=== PATIENT | male | born 1960 | race African-American/Black ===

== ENCOUNTER 2017-01-21 14:06 | Emergency (ER) | payer BC, MEDICAID ==
[~2017-01-21] VITALS: Ht 177.8 cm; Wt 68.0 kg
[~2017-01-21 14:06] MED LIST: ACYCLOVIR400 MG PO; CLONIDINE 0.2M0.2 MG ORAL; CLONIDINE 0.2M0.2 MG PO; DOXYCYCLINE MO100 MG ORAL; GENTAK5 ML BOTH EYES; METOPROLOL; NEXIUM40 MG ORAL; OXYCODONE HCL15 M1 ORAL; PHENERGAN6.25 MG/5 ORAL; PROCARDIA XL30 MG ORAL; PROMETHAZINE V237 ML ORAL; PROMETHAZINE-C118 M1 ORAL; RENAGEL400 MG ORAL; ROXICODONE15 MG ORAL; SENSIPAR30 MG ORAL
[2017-01-21] MEDS ORDERED: DuoNeb 0.5-3(2.5)mg/3ml neb HHN ONE (14:45)
[2017-01-21] MEDS ORDERED: guaiFENesin w/Codeine 5ml Liq ud ORAL ONE (14:45)
--- NOTE | 2017-01-21 14:47 | Emergency Room Report ---
History of Present Illness General Chief Complaint: Upper Respiratory Illness Source: Patient Present Illness HPI Patient is a 56-year-old male who presented after having increased cough and difficulty breathing. Patient had dialysis earlier in the day. Reported having nonproductive cough with intermittent mucus production. He reports being on dialysis and states he was dialyzed earlier. He had previously taken azithromycin and with an initial resolution of cough which recurred. Allergies: Coded Allergies: No Known Allergies (Unverified , 07/24/12) Patient History Past Medical History: see triage record Reviewed Nursing Documentation: PMH: Agreed, PSxH: Agreed Nursing Documentation-PMH Past Medical History: No History, Except For Hx Cardiac Problems: No Hx Hypertension: Yes Hx Diabetes: Yes Hx Cancer: No Hx Gastrointestinal Problems: No Hx Dialysis: Yes - MWF, AV shunt on LUE Hx Neurological Problems: No Review of Systems All Other Systems: negative except mentioned in HPI Physical Exam Vital Signs Date Time Temp Pulse Resp B/P Pulse Ox O2 Delivery O2 Flow Rate FiO2 01/21/17 14:30 98.8 89 16 149/81 98 Room Air Sp02 EP Interpretation: reviewed, normal General Appearance: normal inspection, alert, GCS 15 Head: atraumatic ENT: normal ENT inspection, hearing grossly normal, normal voice Neck: normal inspection, full range of motion, supple, no bony tend Respiratory: normal inspection, lungs clear, normal breath sounds, no respiratory distress, no retraction, no wheezing Cardiovascular #1: regular rate, rhythm, no edema Gastrointestinal: normal inspection, normal bowel sounds, non tender, soft, no guarding, no hernia Genitourinary: no CVA tenderness Musculoskeletal: normal inspection, back normal, normal range of motion Neurologic: normal inspection, alert, oriented x3, responsive, repairer general III-XII nml as tested, speech normal Psychiatric: normal inspection, judgement/insight normal, mood/affect normal Skin: normal inspection, normal color, no rash Medical Decision Making Diagnostic Impression: Primary Impression: Bronchitis Additional Impression: ESRD (end stage renal disease) ER Course Patient presented for cough. Differential diagnosis included but was not limited to bronchitis, pneumonia, pulmonary embolism, pericarditis, asthma, foreign body. Chest x-ray was ordered due to the patient's a persistent cough. The patient was given breathing treatment as well as cough syrup.The patient was noted to have intermittent paroxysms of cough. The patient was given prescription for cough syrup. CURES report was reviewed and patient was noted be taking narcotic medications. Patient is advised to only take the cough syrup for sleep. The patient presented to prescribe similar type syrup. Patient advised followup with his primary care physician. The patient did not appear to require laboratory testing or hospitalization this time. Last Vital Signs Date Time Temp Pulse Resp B/P Pulse Ox O2 Delivery O2 Flow Rate FiO2 01/21/17 14:30 98.8 89 16 149/81 98 Room Air Status: improved Disposition: HOME, SELF-CARE Condition: Stable Scripts Guaifenesin/Codeine (Guaifenesin-Codeine Syrup) 5 Ml Liquid 5 ML ORAL Q6H Y for For Cough, #118 ML Prov: Chris Jarquin 01/21/17 Chris Jarquin Jan 21, 2017 14:47
[2017-01-21 14:58] VITALS: BP 139/78
--- NOTE | 2017-01-21 15:30 | Diagnostic Imaging Report ---
Indication: SOB,, Technique: One view of the chest Comparison: 10/27/2015 Findings: The heart is enlarged. There is mild interstitial prominence, appearing similar to the prior study. Left arm surgical clips are again noted. No focal airspace consolidation. No effusion. Impression: Cardiomegaly Mild interstitial prominence. Probably representing mild digital congestion. However, similarity to the prior exam raises possibility that this could in part represent chronic change
[2017-01-21] MEDS ORDERED: ROBITUSSIN AC5 ML ORAL (15:36)
[2017-01-21 15:38] VITALS: BP 138/82
== END 2017-01-21 15:56 | disposition home or self-care (01) ==
LOC: EMR 15:18
DX: J20.9 Acute bronchitis, unspecified (principal); N18.6 End stage renal disease; Z99.2 Dependence on renal dialysis; I10 Essential (primary) hypertension; E11.9 Type 2 diabetes mellitus without complications
CPT/HCPCS: 71010; 94640; 99283

== ENCOUNTER 2017-08-22 12:50 | Emergency (ER) | payer BC, MEDICAID ==
[~2017-08-22] VITALS: Ht 177.8 cm; Wt 68.0 kg
[~2017-08-22 12:50] MED LIST changes: +ROBITUSSIN AC5 ML ORAL
[2017-08-22 13:15] VITALS: BP 136/88
--- NOTE | 2017-08-22 13:19 | Emergency Room Report ---
History of Present Illness General Chief Complaint: Upper Extremity Injury Source: Patient (BAYRON DUEÑAS) Present Illness HPI The patient is a 56-year-old male presenting for left hand pain. He states that he struck the left hand against a metal object 3 days ago and noticed swelling and pain after that point. Pain has continued it is a 10 out of 10 dull ache it is worse with touch and movement. He denies numbness or tingling. He denies previous injury to the hand.The patient has renal failure and is on dialysis and states swelling did decrease a little after the treatment today. He denies other symptoms including N, V, F, chills, rash (BAYRON DUEÑAS) Allergies: Coded Allergies: No Known Allergies (Unverified , 07/24/12) Patient History Past Medical History: see triage record Pertinent Family History: none Reviewed Nursing Documentation: PMH: Agreed, PSxH: Agreed (BAYRON DUEÑAS) Nursing Documentation-PMH Hx Cardiac Problems: No Hx Hypertension: Yes Hx Diabetes: Yes Hx Cancer: No Hx Gastrointestinal Problems: No Hx Dialysis: Yes - M-W-F Hx Neurological Problems: No (BAYRON [email or web address].[email or web address]) Review of Systems All Other Systems: negative except mentioned in HPI (BAYRON DUEÑAS) Physical Exam Vital Signs Date Time Temp Pulse Resp B/P (MAP) Pulse Ox O2 Delivery O2 Flow Rate FiO2 08/22/17 13:09 98.1 87 16 136/88 98 Room Air Sp02 EP Interpretation: reviewed, normal General Appearance: no apparent distress, alert, GCS 15, non-toxic Head: normocephalic, atraumatic Eyes: bilateral eye normal inspection, bilateral eye PERRL ENT: hearing grossly normal, normal pharynx, no angioedema, normal voice Neck: full range of motion, supple/symm/no masses Musculoskeletal: decreased range of motion - L 2nd MCPJ, tender - TTP over the L 2nd MC Neurologic: alert, oriented x3, responsive, motor strength/tone normal, sensory intact, speech normal Psychiatric: judgement/insight normal, memory normal, mood/affect normal, no suicidal/homicidal ideation Skin: normal color, no rash, warm/dry, well hydrated (BAYRON DUEÑAS) Procedures Splinting Splinting : Consent: Verbal Location: L hand Pre-Made Type: Hand-Made Type: plaster Splint: radial gutter Pre-Proc Neuro Vasc Exam: normal Post-Proc Neuro Vasc Exam: normal Patient Tolerated: Well Complications: None (BAYRON DUEÑAS) Medical Decision Making PA Attestation Dr. Valera is my supervising physician. Patient management was discussed with my supervising physician (BAYRON DUEÑAS) Diagnostic Impression: Primary Impression: Metacarpal bone fracture Qualified Codes: S62.301A - Unspecified fracture of second metacarpal bone, left hand, initial encounter for closed fracture ER Course The patient is a 56-year-old male presenting for left hand pain. Ddx considered include but not limited to sprain/strain, fracture, contusion Physical exam: Left hand: There is edema to the L lateral hand with TTP over the 2nd MC. Limited AROM with flection of the 2nd MCPJ X-ray of the left hand reveals a fracture of the second metacarpal Radial gutter splint is placed and the patient will follow up with his primary doctor DEE. He'll need referral for orthopedics. ER precautions given (BAYRON DUEÑAS) ER Course I agree with XR result intepretation by PA Electronically signed by Lawrence Valera md (Lawrence Valera M.D.) Other X-Ray Diagnostic Results Other X-Ray Diagnostic Results : X-Ray ordered: L hand # of Views/Limited Vs Complete: 3 View Indication: Pain EP Interpretation: Yes Interpretation: no dislocation, other - fracture Impression: Other - fracture 2nd MC Electronically Signed by: Bayron Dueñas PA-C PA Scribe Text I have reviewed the xray with my supervising physician and interpretation is that there is a fracture of the 2nd MC (BAYRON DUEÑAS) Last Vital Signs Date Time Temp Pulse Resp B/P (MAP) Pulse Ox O2 Delivery O2 Flow Rate FiO2 08/22/17 13:09 98.1 87 16 136/88 98 Room Air Status: improved (BAYRON DUEÑASADeb) Disposition: HOME, SELF-CARE Condition: Improved Scripts Hydrocodone Bit/Acetaminophen 5-325* (NORCO 5-325 TABLET*) 1 Each Tablet 1 TAB ORAL Q6HR Y for For Pain, #10 TAB Prov: BAYRON DUEÑAS 08/22/17 BAYRON DUEÑAS Aug 22, 2017 13:19 Lawrence Valera M.D. Aug 23, 2017 12:32
[2017-08-22] MEDS ORDERED: Norco 5mg/325mg tab ORAL ONE (14:00)
[2017-08-22] MEDS ORDERED: NORCO 5-325 TA1 EAC1 ORAL (14:26)
[2017-08-22 14:33] VITALS: BP 136/88
--- NOTE | 2017-08-22 14:48 | Diagnostic Imaging Report ---
Indication: PAIN, swelling, unable to move fingers Technique: 3 views left hand Comparison: None Findings: There is a comminuted fracture of the distal aspect of the second metacarpal. This is minimally displaced, slightly angulated. No other acute fracture. No dislocations. Surgical clips are seen in the distal lateral forearm. Impression: Positive for second metacarpal fracture Findings discussed by phone with Bayron Monte N.P. in the emergency room at the time of interpretation
== END 2017-08-22 15:00 | disposition home or self-care (01) ==
LOC: EMR 14:20
DX: S62.391A Other fracture of second metacarpal bone, left hand, initial encounter for closed fracture (principal); W22.8XXA Striking against or struck by other objects, initial encounter; Y92.015 Private garage of single-family (private) house as the place of occurrence of the external cause; I10 Essential (primary) hypertension; E11.9 Type 2 diabetes mellitus without complications
CPT/HCPCS: 99283

== ENCOUNTER 2017-12-19 08:00 | Emergency (ER) | payer BC, MEDICAID ==
[~2017-12-19] VITALS: Ht 177.8 cm; Wt 68.0 kg
[~2017-12-19 08:00] MED LIST changes: +NORCO 5-325 TA1 EAC1 ORAL
[2017-12-19] MEDS ORDERED: Lidocaine 1% MPF 10mg/ml 5ml INJ ONE (08:15)
[2017-12-19] MEDS ORDERED: Azithromycin 250mg tab ORAL ONE (08:15)
--- NOTE | 2017-12-19 08:24 | Emergency Room Report ---
History of Present Illness General Chief Complaint: Male Urogenital Problems Source: Patient Present Illness HPI 56-year-old male, history of end-stage renal disease, on dialysis, last dialysis was today, presenting with possible STD exposure. Patient states that he had sexual intercourse with a stranger one week and, now presenting with slight penile burning and slight penile discharge. States that he does not produce any urine any more. No fever no chills. No other complaints Allergies: Coded Allergies: No Known Allergies (Unverified , 07/24/12) Patient History Past Medical History: see triage record Past Surgical History: none Pertinent Family History: none Reviewed Nursing Documentation: PMH: Agreed, PSxH: Agreed Nursing Documentation-PMH Past Medical History: No History, Except For Hx Cardiac Problems: No Hx Hypertension: Yes Hx Diabetes: Yes Hx Cancer: No Hx Gastrointestinal Problems: No Hx Dialysis: Yes - M-W-F Hx Neurological Problems: No Review of Systems All Other Systems: negative except mentioned in HPI Physical Exam Vital Signs Date Time Temp Pulse Resp B/P (MAP) Pulse Ox O2 Delivery O2 Flow Rate FiO2 12/19/17 08:03 97.6 74 18 133/88 98 Room Air 97.5 Sp02 EP Interpretation: reviewed, normal General Appearance: normal inspection, well appearing, no apparent distress, alert, GCS 15, non-toxic Head: normocephalic, atraumatic Eyes: bilateral eye normal inspection, bilateral eye PERRL, bilateral eye EOMI ENT: normal ENT inspection, normal pharynx, normal voice, moist mucus membranes Neck: normal inspection, full range of motion, supple Respiratory: normal inspection, lungs clear, normal breath sounds, no respiratory distress, no retraction, no wheezing, speaking full sentences, chest symmetrical Cardiovascular #1: normal inspection, regular rate, rhythm, no edema, normal capillary refill Cardiovascular #2: 2+ radial (R), 2+ radial (L) Gastrointestinal: normal inspection, non tender, soft, non-distended, no guarding Genitourinary: no CVA tenderness Musculoskeletal: normal inspection, back normal, normal range of motion, non- tender Neurologic: normal inspection, alert, oriented x3, responsive, motor strength/ tone normal, sensory intact, normal gait, speech normal Psychiatric: normal inspection, judgement/insight normal, memory normal Skin: normal inspection, normal color, no rash, warm/dry, well hydrated, normal turgor Medical Decision Making Diagnostic Impression: Primary Impression: Possible exposure to STD ER Course 56-year-old male, possible STD exposure DDX: Possible STD exposure Plan: Empirically treated for STD ER course: Patient has remained stable during ED stay. Patient was treated with ceftriaxone and azithromycin. He was informed to not have sex for at least 2 weeks after treatment. Also noted that he still needs to get tested for other infection such as HIV at an outside clinic, states that he can get tested at his primary care doctor's office Disposition: Patient is to be discharged to home. Patient is instructed to follow up with their primary care doctor within 5 days. Please note that this Emergency Department Report was dictated using [employer] transformer assembler technology software, occasionally this can lead to erroneous entry secondary to interpretation by the dictation equipment Last Vital Signs Date Time Temp Pulse Resp B/P (MAP) Pulse Ox O2 Delivery O2 Flow Rate FiO2 12/19/17 08:03 97.6 74 18 133/88 98 Room Air 97.5 Disposition: HOME, SELF-CARE Condition: Stable Referrals: NOT CHOSEN IPA/,REFERRING (PCP) Patient Instructions: Sexually Transmitted Disease, [id number] Lawrence Valera M.D. Dec 19, 2017 08:24
[2017-12-19 08:30] VITALS: BP 129/87
[2017-12-19 08:48] VITALS: BP 129/87
== END 2017-12-19 09:12 | disposition home or self-care (01) ==
LOC: EMR 08:16
DX: R36.9 Urethral discharge, unspecified (principal); I12.0 Hypertensive chronic kidney disease with stage 5 chronic kidney disease or end stage renal disease; E11.22 Type 2 diabetes mellitus with diabetic chronic kidney disease; N18.6 End stage renal disease; Z99.2 Dependence on renal dialysis
CPT/HCPCS: 96372; 99283; J0696

== ENCOUNTER 2018-07-24 08:03 | Emergency (ER) | payer BC, MEDICAID ==
[~2018-07-24] VITALS: Ht 177.8 cm; Wt 68.0 kg
[2018-07-24] MEDS ORDERED: DOXYCYCLINE MO100 MG ORAL (08:24)
--- NOTE | 2018-07-24 08:29 | Emergency Room Report ---
History of Present Illness General Chief Complaint: Male Urogenital Problems Source: Patient Present Illness HPI Patient's 57-year-old male brought in by self after increased patient was noted to have increased burning sensation as well as increased urethral discharge. Patient reports having increased symptoms after unprotected sex. He denies any fever. He reports having history of end-stage renal disease and was dialyzed this morning. The patient dialyzed Tuesday and Tuesday. He additionally reports having increased nasal bleeding predominantly from the left nare. He denies any fever. He reports having a previous renal transplant and but is not currently on any immunosuppressive medications. Allergies: Coded Allergies: No Known Allergies (Unverified , 07/24/18) Patient History Reviewed Nursing Documentation: PMH: Agreed; PSxH: Agreed Nursing Documentation-PMH Hx Cardiac Problems: No Hx Hypertension: Yes Hx Diabetes: No Hx Cancer: No Hx Gastrointestinal Problems: No Hx Dialysis: Yes - M-W-F Hx Neurological Problems: No Review of Systems All Other Systems: negative except mentioned in HPI Physical Exam Vital Signs Date Time Temp Pulse Resp B/P (MAP) Pulse Ox O2 Delivery O2 Flow Rate FiO2 07/24/18 08:07 97.9 102 16 177/101 94 Room Air 94 97.9 Sp02 EP Interpretation: reviewed, normal General Appearance: normal inspection, well appearing, no apparent distress, alert, GCS 15 Head: atraumatic ENT: hearing grossly normal, normal voice, other - right nare anterior septal scant bleeding Neck: normal inspection, full range of motion, supple, no bony tend Respiratory: normal inspection, lungs clear, normal breath sounds, no respiratory distress, no retraction, no wheezing Cardiovascular #1: regular rate, rhythm, no edema Gastrointestinal: normal inspection, normal bowel sounds, non tender, soft, no guarding, no hernia Genitourinary: no CVA tenderness Musculoskeletal: normal inspection, back normal, normal range of motion, other - left forearm dialysis shunt with palpable thrill Neurologic: normal inspection, alert, responsive, speech normal Psychiatric: normal inspection, judgement/insight normal, mood/affect normal Skin: normal inspection, normal color, no rash Medical Decision Making Diagnostic Impression: Primary Impression: Urethritis Additional Impressions: Anterior epistaxis ESRD (end stage renal disease) on dialysis ER Course Patient presented for urethral discharge. The patient noted be anuric. The patient was empirically treated for gonorrhea and chlamydia. Patient was advised STD testing outpatient. The patient is advised to follow up with primary care doctor in 1-2 days for further STD testing. The patient was noted to have some mild epistaxis. Intranasal tranexamic acid was placed in both nares with resolution of bleeding. The patient does not appear to require any laboratory testing at this time. Patient had not been bleeding from his dialysis access or having any gingival bleeding or other concerns at this time. Patient is advised to return if any worsening condition or if any changes in status that are concerning. Last Vital Signs Date Time Temp Pulse Resp B/P (MAP) Pulse Ox O2 Delivery O2 Flow Rate FiO2 07/24/18 08:07 97.9 102 16 177/101 94 Room Air 94 97.9 Status: improved Disposition: HOME, SELF-CARE Condition: Stable Scripts Doxycycline Monohydrate* (DOXYCYCLINE MONOHYDRATE*) 100 Mg Capsule 100 MG ORAL Q12H, #14 CAP 0 Refills Prov: Chris Jarquin MD 07/24/18 Referrals: NON PHYSICIAN (PCP) Patient Instructions: Urethritis, Adult Chris Jarquin MD Jul 24, 2018 08:29
[2018-07-24] MEDS ORDERED: Lidocaine 1% MPF 10mg/ml 5ml INJ ONE (08:30)
[2018-07-24] MEDS ORDERED: Tranexamic Acid(Epistaxis Use) TOPIC ONE (08:30)
[2018-07-24 08:45] VITALS: BP 169/96
[2018-07-24 08:49] VITALS: BP 169/96
== END 2018-07-24 08:50 | disposition home or self-care (01) ==
LOC: EMR 08:20
DX: N34.2 Other urethritis (principal); R04.0 Epistaxis; I12.0 Hypertensive chronic kidney disease with stage 5 chronic kidney disease or end stage renal disease; N18.6 End stage renal disease; Z99.2 Dependence on renal dialysis
CPT/HCPCS: 96372; 99283; J0696

== ENCOUNTER 2019-04-27 10:46 | Emergency (ER) | payer BC, OTHER ==
[~2019-04-27] VITALS: Ht 175.3 cm; Wt 70.3 kg
[2019-04-27 11:15] VITALS: BP 110/81
--- NOTE | 2019-04-27 11:29 | NUR ---
ED Nurse Note: Patient presents to ER due to penile burning with clear discharge. Reports no fever or chills.
[2019-04-27] MEDS ORDERED: Lidocaine 1% MPF 10mg/ml 5ml INJ ONE (11:30)
[2019-04-27] MEDS ORDERED: Azithromycin 250mg tab ORAL ONE (11:30)
[2019-04-27] MEDS ORDERED: metroNIDAZOLE 500mg tab ORAL ONE (11:30)
[2019-04-27 11:53] VITALS: BP 110/81
--- NOTE | 2019-04-27 11:53 | NUR ---
ER DISCHARGE NOTE: Patient is cleared to be discharged per ERMD, pt is aox4, on room air, with stable vital signs. pt was given dc and prescription instructions, pt was able to verbalize understanding, pt id band removed. pt is able to ambulate with steady gait. pt took all belongings.
--- NOTE | 2019-04-27 12:40 | Emergency Room Report ---
History of Present Illness General Chief Complaint: Male Urogenital Problems Source: Patient, Medical Record Present Illness HPI Patient presents emergency department today complaining of dysuria and urethral discharge. He states that he has a sexual encounter and subsequently his condom broke. Because of that he thinks he might have now an STD. He denies any testicle pain or testicular swelling. Denies any nodules in the groin. Denies any fever nausea vomiting diarrhea chills. He is requesting treatment. No other complaints are noted patient noted to moderate to severe. No other modifying factors. No other associated signs and symptoms. No other complaints were noted. Allergies: Coded Allergies: No Known Allergies (Unverified , 07/24/18) Patient History Past Medical History: HTN, renal disease, dialysis - mwf Past Surgical History: none Pertinent Family History: none Social History: Denies: smoking, alcohol use, drug use Reviewed Nursing Documentation: PMH: Agreed; PSxH: Agreed Nursing Documentation-PMH Past Medical History: No History, Except For Hx Cardiac Problems: No Hx Hypertension: Yes Hx Diabetes: No Hx Cancer: No Hx Gastrointestinal Problems: No Hx Dialysis: Yes - M-W-F Hx Neurological Problems: No Review of Systems All Other Systems: negative except mentioned in HPI Physical Exam Vital Signs Date Time Temp Pulse Resp B/P (MAP) Pulse Ox O2 Delivery O2 Flow Rate FiO2 04/27/19 11:15 98.2 16 110/81 95 Room Air 04/27/19 11:15 80 Sp02 EP Interpretation: reviewed, normal General Appearance: normal inspection, well appearing, no apparent distress, alert Head: atraumatic Eyes: bilateral eye normal inspection ENT: normal ENT inspection, hearing grossly normal, normal voice Neck: normal inspection, full range of motion, supple, no bony tend Respiratory: normal inspection, lungs clear, normal breath sounds, no respiratory distress, no retraction, no wheezing Cardiovascular #1: regular rate, rhythm, no edema Gastrointestinal: normal inspection, normal bowel sounds, non tender, soft, no guarding, no hernia Genitourinary: no CVA tenderness Musculoskeletal: normal inspection, back normal, normal range of motion Neurologic: normal inspection, alert, responsive, speech normal Psychiatric: normal inspection, judgement/insight normal, mood/affect normal Skin: normal inspection, normal color, no rash Medical Decision Making Diagnostic Impression: Primary Impression: Urethritis Additional Impression: STD (male) ER Course Patient presents emergency department today complaint dysuria and penile discharge. Differential considerations include STD, UTI. Patient states he does not usually make urine. Therefore for the patient's symptoms are consistent with likely a STD urethritis. Patient will require antibiotics. Patient was given Rocephin and Flagyl and Zithromax here. Patient is advised to follow up with primary doctor in 2-3 days and return the emergency room for any worsening symptoms and as needed. Last Vital Signs Date Time Temp Pulse Resp B/P (MAP) Pulse Ox O2 Delivery O2 Flow Rate FiO2 04/27/19 11:15 98.2 80 16 110/81 (91) 95 Room Air Status: improved Disposition: HOME, SELF-CARE Condition: Stable Referrals: NON PHYSICIAN (PCP) Patient Instructions: Urethritis, Adult Sixto Smith MD Apr 27, 2019 12:40
== END 2019-04-27 11:53 | disposition home or self-care (01) ==
LOC: EMR 11:25
DX: N34.2 Other urethritis (principal); I12.9 Hypertensive chronic kidney disease with stage 1 through stage 4 chronic kidney disease, or unspecified chronic kidney disease; N18.9 Chronic kidney disease, unspecified; Z99.2 Dependence on renal dialysis; Z20.2 Contact with and (suspected) exposure to infections with a predominantly sexual mode of transmission
CPT/HCPCS: 96372; 99283; J0696

== ENCOUNTER 2020-02-08 18:50 | Emergency (ER) | payer BC, OTHER ==
[~2020-02-08] VITALS: Ht 170.2 cm; Wt 81.6 kg
[2020-02-08 19:20] VITALS: BP 176/87
--- NOTE | 2020-02-08 19:20 | NUR ---
ED Nurse Note: Patient walked into ED c/o left sided rib pain with onset for about 5 hours now, states that it initially started while patient was receiving dialysis at around 1400. patient does present with a dialysis catheter located on his left upper arm. patient also complains of burning and itching in the penile area, assessment done with ERMD. patient does present with a bump located towards the back of the penile head. patient is alert and oriented x4, patient placed on a portable machine. IV started on right hand 20 gauge. will continue to monitor
[2020-02-08] MEDS ORDERED: Lidocaine 1% MPF 10mg/ml 5ml INJ ONE (19:45)
[2020-02-08] MEDS ORDERED: Bicillin LA 2.4MMU/4ML SYR IM ONE (19:45)
[2020-02-08] MEDS ORDERED: Azithromycin 250mg tab ORAL ONE (19:45)
--- NOTE | 2020-02-08 19:53 | Emergency Room Report ---
History of Present Illness General Chief Complaint: Chest Pain Source: Patient Present Illness HPI Disclaimer: Please note that this report is being documented using DRAGON technology. This can lead to erroneous entry secondary to incorrect interpretation by the dictating instrument. HPI: 59-year-old male with history of ESRD on hemodialysis presents for evaluation of chest pain and penile discharge. First, he states that he was undergoing hemodialysis today as scheduled and complaining of sharp stabbing left-sided chest wall pain that is worse with movement. He was relieved by stretching exercise and by massaging the muscle. He has had this pain multiple times in the past when receiving dialysis. He does not know what it is attributed to. He is currently not complaining of the pain. Denies shortness of breath, back pain, palpitations, syncope. Second, he is complaining of burning sensation in the penis as well as a small ulcer. He has had STIs in the past. He recently had a sexual encounter and the condom broke and is concerned he has another STD. Patient is an uric. Notes itching and burning in the groin region. Denies fever, chills, cough, URI symptoms, recent travel or sick contacts. PMH: ESRD on hemodialysis PSH: Dialysis graft left upper arm Allergies: None reported Social Hx: Denies drug or alcohol abuse Allergies: Coded Allergies: No Known Allergies (Unverified , 07/24/18) COVID-19 Screening Contact w/high risk pt: No Recent Travel to affected area: No Experienced COVID-19 symptoms?: No Nursing Documentation-PMH Past Medical History: No History, Except For Hx Cardiac Problems: No Hx Hypertension: Yes Hx Diabetes: No Hx Cancer: No Hx Gastrointestinal Problems: No Hx Dialysis: Yes - M-W-F Hx Neurological Problems: No Review of Systems All Other Systems: negative except mentioned in HPI Physical Exam Vital Signs Date Time Temp Pulse Resp B/P (MAP) Pulse Ox O2 Delivery O2 Flow Rate FiO2 02/08/20 19:17 98.4 110 18 176/87 (116) 94 Room Air General: Awake and alert, no acute distress HEENT: NC/AT. EOMI. Neck: Supple, trachea midline Chest Wall: No tenderness, no deformity. No crepitus. Cardiovascular: Tachycardic. S1 and S2 normal. Fistula with palpable thrill left upper arm Resp: Normal work of breathing. No cough, wheezing or crackles appreciated Abdomen: Abdomen is soft, nondistended. Nontender : No penile discharge, circumcised male, testes in anatomic position. Shallow ulcer without surrounding edema, erythema, purulence over the glans. Skin: Intact. No abrasions, laceration or rash over the exposed skin MSK: Normal tone and bulk. Moving all extremities. No obvious deformity. Neuro: Awake and alert. Mentating appropriately. Medical Decision Making Diagnostic Impression: Primary Impression: Possible exposure to STD Additional Impressions: Urethritis Chest pain Pneumonia ER Course 59-year-old male with a history of ESRD and prior STI exposure presents for evaluation of chest pain during hemodialysis and concern over STD exposure. Differential includes was not limited to ACS, electrolyte abnormality, volume shifts, musculoskeletal chest wall pain, atypical chest pain, urethritis, syphilis, HSV. Patient's chest pain appears to be musculoskeletal however given his multiple risk factors will obtain EKG, chest x-ray, broad labs. Regarding his penile discomfort and discharge, will treat him with Zithromax, Rocephin, penicillin. We will also refer him to STD clinics for testing. Laboratory Tests Test 02/08/20 19:40 White Blood Count 6.8 K/UL (4.8-10.8) Red Blood Count 3.70 M/UL (4.70-6.10) L Hemoglobin 11.2 G/DL (14.2-18.0) L Hematocrit 34.1 % (42.0-52.0) L Mean Corpuscular Volume 92 FL (80-99) Mean Corpuscular Hemoglobin 30.2 PG (27.0-31.0) Mean Corpuscular Hemoglobin Concent 32.8 G/DL (32.0-36.0) Red Cell Distribution Width 16.6 % (11.6-14.8) H Platelet Count 305 K/UL (150-450) Mean Platelet Volume 5.8 FL (6.5-10.1) L Neutrophils (%) (Auto) 67.4 % (45.0-75.0) Lymphocytes (%) (Auto) 19.6 % (20.0-45.0) L Monocytes (%) (Auto) 7.1 % (1.0-10.0) Eosinophils (%) (Auto) 3.7 % (0.0-3.0) H Basophils (%) (Auto) 2.2 % (0.0-2.0) H Sodium Level 140 MMOL/L (136-145) Potassium Level 3.9 MMOL/L (3.5-5.1) Chloride Level 97 MMOL/L (98-107) L Carbon Dioxide Level 31 MMOL/L (21-32) Anion Gap 12 mmol/L (5-15) Blood Urea Nitrogen 22 mg/dL (7-18) H Creatinine 5.1 MG/DL (0.55-1.30) H Estimated Glomerular Filtration Rate 14.2 mL/min (>60) Glucose Level 70 MG/DL (74-106) L Calcium Level 9.3 MG/DL (8.5-10.1) Total Bilirubin 0.8 MG/DL (0.2-1.0) Aspartate Amino Transferase (AST) 38 U/L (15-37) H Alanine Aminotransferase (ALT) 23 U/L (12-78) Alkaline Phosphatase 165 U/L (46-116) H Troponin I 0.094 ng/mL (0.000-0.056) Total Protein 8.3 G/DL (6.4-8.2) H Albumin 3.9 G/DL (3.4-5.0) Globulin 4.4 g/dL Albumin/Globulin Ratio 0.9 (1.0-2.7) L EKG Diagnostic Results EKG Time: 19:31 Rate: tachycardiac Rhythm: NSR Other Impression Sinus tachycardia, possible right axis. Rhythm Strip Diag. Results Rhythm Strip Time: 19:31 EP Interpretation: yes Rate: 104 Rhythm: NSR Chest X-Ray Diagnostic Results Chest X-Ray Diagnostic Results : Chest X-Ray Ordered: Yes # of Views/Limited/Complete: 1 View Indication: Chest Pain EP Interpretation: Yes Interpretation: other - Possible right middle lobe consolidation. No effusion. No pneumothorax. Impression: Other - Hazy opacities Electronically Signed by: Electronically signed by Dr. Patrick Whitfield Reevaluation Time: 21:24 Last Vital Signs Date Time Temp Pulse Resp B/P (MAP) Pulse Ox O2 Delivery O2 Flow Rate FiO2 02/08/20 19:17 98.4 110 18 176/87 (116) 94 Room Air Reevaluation Impression Troponin returned slightly elevated. The patient is on dialysis and therefore may have a baseline elevated troponin however the previous troponin levels we have are from 2015 and are difficult to compare. Chest x-ray interpreted by radiology is concerning for increased hazy opacities suspicious of inflammatory infectious etiology. Given the coronavirus pandemic at this time suspect possible pneumonia. I discussed admission given his abnormal EKG, elevated troponin and possible lung findings however the patient is adamant that he does not want to spend the night in the emergency department. 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 Explained to the patient that these findings are potentially very serious and even possibly fatal. He states he understands the risk and would elect to leave AGAINST MEDICAL ADVICE. He signed his discharge paperwork and AMA form. He was given azithromycin to treat a possible infectious etiology in the lungs. Strongly encouraged him to follow-up and return to the emergency department new or worsening symptoms. He expressed understanding and agreement. Disposition: AGAINST MEDICAL ADVICE Condition: Stable Scripts Azithromycin* (ZITHROMAX*) 250 Mg Tablet 250 MG ORAL DAILY for 5 Days, #6 TAB 0 Refills Take two tables once daily for 1 day, then one tablet once daily for 4 days. Prov: Patrick Whitfield MD 02/08/20 Patrick Whitfield MD Feb 08, 2020 19:53
[2020-02-08 20:05] LABS: BASOPHILS % (AUTO) 2.2 % (0.0-2.0); EOSINOPHILS % (AUTO) 3.7 % (0.0-3.0); HEMATOCRIT 34.1 % (42.0-52.0); HEMOGLOBIN 11.2 G/DL (14.2-18.0); LYMPHOCYTES % (AUTO) 19.6 % (20.0-45.0); MEAN CORPUSCULAR VOLUME 92 FL (80-99); MONOCYTES % (AUTO) 7.1 % (1.0-10.0); NEUTROPHILS % (AUTO) 67.4 % (45.0-75.0); PLATELET COUNT 305 K/UL (150-450); RED CELL DISTRIBUTION WIDTH 16.6 % (11.6-14.8); WHITE BLOOD COUNT 6.8 K/UL (4.8-10.8)
--- NOTE | 2020-02-08 20:14 | Diagnostic Imaging Report ---
EXAM: XR Chest, 1 View CLINICAL HISTORY: CP TECHNIQUE: Frontal view of the chest. COMPARISON: 01/21/17. FINDINGS: Lungs: Some mild increased hazy opacities are suspected in the lungs. An acute infectious/inflammatory process should be considered. Pleural space: Unremarkable. No pneumothorax. Heart: Prominence of the cardiac silhouette. Mediastinum: Unremarkable. Bones/joints: Unremarkable. Soft tissues: Clips are projected in the region of the left arm. IMPRESSION: 1. Some mild increased hazy opacities are suspected in the lungs. An acute infectious/inflammatory process should be considered. 2. Prominence of the cardiac silhouette.
[2020-02-08] MEDS ORDERED: Methocarbamol 750mg tab ORAL ONE (20:15)
[2020-02-08 20:16] LABS: ANION GAP 12 mmol/L (5-15); BLOOD UREA NITROGEN 22 mg/dL (7-18); CALCIUM 9.3 MG/DL (8.5-10.1); CARBON DIOXIDE 31 MMOL/L (21-32); CHLORIDE 97 MMOL/L (98-107); CREATININE 5.1 MG/DL (0.55-1.30); POTASSIUM 3.9 MMOL/L (3.5-5.1); SODIUM 140 MMOL/L (136-145)
[2020-02-08 20:21] LABS: ALANINE AMINOTRANSFERASE 23 U/L (12-78); ALBUMIN 3.9 G/DL (3.4-5.0); ALBUMIN/GLOBULIN RATIO 0.9 (1.0-2.7); ALKALINE PHOSPHATASE 165 U/L (46-116); ASPARTATE AMINO TRANSFERASE 38 U/L (15-37); BILIRUBIN,TOTAL 0.8 MG/DL (0.2-1.0)
[2020-02-08] MEDS ORDERED: ZITHROMAX250 MG ORAL (21:31)
[2020-02-08 21:40] VITALS: BP 162/82
--- NOTE | 2020-02-08 21:40 | NUR ---
AMA: Patient is leaving AMA. states that he would like to go home and not wait. patient walked out of ED with a steady gait. all medical devices such as ID band and IV line removed. patient understands the risks of leaving AMA such as .
== END 2020-02-08 21:40 | disposition left against medical advice (07) ==
LOC: EMR 19:55
DX: R07.9 Chest pain, unspecified (principal); N34.2 Other urethritis; J18.9 Pneumonia, unspecified organism; Z20.2 Contact with and (suspected) exposure to infections with a predominantly sexual mode of transmission; I12.0 Hypertensive chronic kidney disease with stage 5 chronic kidney disease or end stage renal disease; N18.6 End stage renal disease; Z99.2 Dependence on renal dialysis; R00.0 Tachycardia, unspecified
CPT/HCPCS: 36415; 71045; 80053; 84484; 85025; 93005; 96372; 99283; J0696

== ENCOUNTER 2020-07-23 20:44 | Inpatient (IN) | payer BC ==
[~2020-07-23] VITALS: Ht 182.9 cm; Wt 74.4 kg
[~2020-07-23 20:44] MED LIST changes: +ADALAT CC30 MG ORAL; +B COMPLEX1 EACH ORAL; +CATAPRES0.1 MG ORAL; +DIPHENHYDRAMINE25 M1 ORAL; +LIQUACEL 100 LI30 ML PO; +LOPRESSOR HCT1 EAC3 ORAL; +METOPROLOL TART50 MG ORAL; +VITAMIN D3 COM1 EACH PO; +ZITHROMAX250 MG ORAL
[2020-07-23 21:00] VITALS: BP 149/104
--- NOTE | 2020-07-23 21:00 | NUR ---
ED Nurse Note: Patient brought into ED from home by NORMAN RA 34 for altered level of consciousness. Per NORMAN, patient's roomate had noted that patient used cocaine and drank alcohol today. He was found lethargic and altered in his bed. Patient is a dialysis patient and goes M/W/F; missed dialysis today. Upon ED arrival, patient is only oriented to self and is extremely lethargic. He is snoring and expiratory wheezing is heard. Patient placed in bed and connected to monitor technician. All safety measures met; will continue to closely monitor.
--- NOTE | 2020-07-23 21:10 | NUR ---
ED Nurse Note: Patient has dialysis shunt on L arm and surgical scars on abdomen.
[2020-07-23 21:28] LABS: ANION GAP 15 mmol/L (5-15); BLOOD UREA NITROGEN 63 mg/dL (7-18); CALCIUM 8.3 MG/DL (8.5-10.1); CARBON DIOXIDE 23 MMOL/L (21-32); CHLORIDE 100 MMOL/L (98-107); CREATININE 15.5 MG/DL (0.55-1.30); POTASSIUM 5.7 MMOL/L (3.5-5.1); SODIUM 138 MMOL/L (136-145)
[2020-07-23 21:29] LABS: EOSINOPHILS % (AUTO) 4.3 % (0.0-3.0); HEMATOCRIT 36.2 % (42.0-52.0); LYMPHOCYTES % (AUTO) 22.6 % (20.0-45.0); MEAN CORPUSCULAR VOLUME 100 FL (80-99); PLATELET COUNT 211 K/UL (150-450); RED BLOOD COUNT 3.64 M/UL (4.70-6.10); RED CELL DISTRIBUTION WIDTH 16.9 % (11.6-14.8)
[2020-07-23 21:38] LABS: ALANINE AMINOTRANSFERASE 20 U/L (12-78); ALBUMIN 3.9 G/DL (3.4-5.0); ALBUMIN/GLOBULIN RATIO 0.9 (1.0-2.7); ALKALINE PHOSPHATASE 153 U/L (46-116); ASPARTATE AMINO TRANSFERASE 27 U/L (15-37); BILIRUBIN,TOTAL 0.6 MG/DL (0.2-1.0)
--- NOTE | 2020-07-23 21:49 | Emergency Room Report ---
History of Present Illness General Chief Complaint: Altered Mental Status Source: EMS Present Illness HPI Disclaimer: Please note that this report is being documented using [employer] technology. This can lead to erroneous entry secondary to incorrect interpretation by the dictating instrument. HPI: 59-year-old male history of ESRD on hemodialysis reportedly MWF presents for evaluation of altered mental status. According to EMS, they were called to the patient's home by the roommates who found him altered approximate 1 hour prior to arrival. They state they witnessed him using cocaine and drinking large amounts of alcohol earlier in the day. The patient is somnolent but arousable. He is disoriented. GCS 14. Cannot provide any history. According to EMS, roommate states he had dialysis 2 days ago as scheduled but did not go today. Unknown head trauma PMH: ESRD, hypertension PSH: Unable to obtain from patient Allergies: Unable to obtain from patient Social Hx: Unable to obtain from patient Allergies: Coded Allergies: No Known Allergies (Unverified , 07/24/18) COVID-19 Screening Contact w/high risk pt: No Recent Travel to affected area: No Experienced COVID-19 symptoms?: No COVID-19 Testing performed STRUCTURES ASSEMBLER: No Nursing Documentation-PMH Hx Cardiac Problems: No Hx Hypertension: Yes Hx Diabetes: No Hx Cancer: No Hx Gastrointestinal Problems: No Hx Dialysis: Yes - M-W-F Hx Neurological Problems: No Review of Systems All Other Systems: limited - Unable to obtain from patient due to clinical condition Physical Exam Vital Signs Date Time Temp Pulse Resp B/P (MAP) Pulse Ox O2 Delivery O2 Flow Rate FiO2 07/23/20 20:35 98.2 75 16 151/117 (128) 99 Room Air General: Awake, somnolent but arousable, no acute distress HEENT: NC/AT. No obvious facial or scalp hematomas, lacerations or abrasions. EOMI. pupils are 4 mm and reactive bilaterally. Cardiovascular: RRR. AV fistula palpable thrill in the left upper extremity Resp: Normal work of breathing. No cough, wheezing or crackles appreciated Abdomen: Abdomen is soft, nondistended. Nontender Skin: Intact. No abrasions, laceration or rash over the exposed skin MSK: Normal tone and bulk. Moving all extremities. No obvious deformity. Neuro: Awake, GCS 13, nonsensical speech. Appears intoxicated Medical Decision Making Diagnostic Impression: Primary Impression: Non-compliance with treatment Additional Impressions: ESRD (end stage renal disease) on dialysis Hyperkalemia Altered mental status ER Course 59-year-old male history of ESRD on hemodialysis presents for evaluation of altered mental status. Differential includes but not limited to intoxication, substance abuse, occult head injury, electrolyte abnormality, complications of missing dialysis, among others. Will obtain IV access, draw labs, sent for CT scan of the head and monitor the patient. At this time he is protecting his wet airway and does not need emergent intubation. Patient has very poor vascular access, A right external jugular line was placed by me without complication. Will sign out to oncoming physician pending results and reevaluation for ultimate disposition. EKG Diagnostic Results EKG Time: 20:47 Rate: normal Rhythm: NSR Other Impression Sinus rhythm, first-degree AV block with DC interval 242 ms. Slightly prolonged QTC of 492 ms. Inverted precordial T waves and slightly peaked T waves in the lateral leads. No obvious ST segment elevation. Right axis deviation. Rhythm Strip Diag. Results Rhythm Strip Time: 20:47 EP Interpretation: yes Rate: 70s Rhythm: NSR, no PVC's, no ectopy Chest X-Ray Diagnostic Results Chest X-Ray Diagnostic Results : Chest X-Ray Ordered: Yes # of Views/Limited/Complete: 1 View Indication: Other - Dialysis patient EP Interpretation: Yes Interpretation: no consolidation, other - Small effusions bilaterally and pulmonary vascular congestion Impression: Other - Pulmonary vascular congestion Electronically Signed by: Electronically signed by Dr. Patrick Whitfield Last Vital Signs Date Time Temp Pulse Resp B/P (MAP) Pulse Ox O2 Delivery O2 Flow Rate FiO2 07/23/20 21:00 98.2 78 21 149/104 98 Room Air Signed Out To: Dr. Roe Referrals: NOT CHOSEN IPA/,REFERRING (PCP) Patrick Whitfield MD Jul 23, 2020 21:49
[2020-07-23 22:00] VITALS: BP 158/95
[2020-07-23] MEDS ORDERED: Insulin Human Regular 100units/ml 3ml IV ONE (22:00)
[2020-07-23] MEDS ORDERED: Sodium Bicarbonate 50ml Carp IV ONE (22:00)
[2020-07-23] MEDS ORDERED: Calcium Gluconate 1gm/10ml vial IVP ONE (22:00)
--- NOTE | 2020-07-23 22:00 | NUR ---
ED Nurse Note: ERMD aware that urine sample has not been obtained.
--- NOTE | 2020-07-23 22:14 | Diagnostic Imaging Report ---
EXAM: CT Head Without Intravenous Contrast CLINICAL HISTORY: AMS TECHNIQUE: Axial computed tomography images of the head/brain without intravenous contrast. CTDI is 53.4 mGy and DLP is 1171.8 mGy-cm. One or more of the following dose reduction techniques were used: automated exposure control, adjustment of the mA and/or kV according to patient size, use of iterative reconstruction technique. COMPARISON: No relevant prior studies available. FINDINGS: Brain: Areas of decreased density in the white matter which are nonspecific but are likely related to small vessel ischemic changes. Cerebral atrophy. No hemorrhage. Ventricles: Unremarkable. Bones/joints: Unremarkable. No acute fracture. Soft tissues: Unremarkable. Sinuses: Focal areas of mild mucosal thickening in the paranasal sinuses. Mastoid air cells: Unremarkable as visualized. No mastoid effusion. IMPRESSION: 1. Areas of decreased density in the white matter which are nonspecific but are likely related to small vessel ischemic changes. 2. Cerebral atrophy.
--- NOTE | 2020-07-23 22:30 | NUR ---
ED Nurse Note: Patient is sleeping at this time, NAD. Breathing is normal and unlabored. Safety measures met; will continue to monitor.
--- NOTE | 2020-07-23 23:29 | Emergency Room Report ---
Physical Exam Vital Signs Date Time Temp Pulse Resp B/P (MAP) Pulse Ox O2 Delivery O2 Flow Rate FiO2 07/23/20 20:35 98.2 75 16 151/117 (128) 99 Room Air Sp02 EP Interpretation: reviewed, normal Medical Decision Making Diagnostic Impression: Primary Impression: Altered mental status Additional Impressions: Hyperkalemia ESRD (end stage renal disease) on dialysis Non-compliance with treatment Diabetes mellitus HTN (hypertension) Fluid overload ER Course I, Dr Samantha Roe, have assumed care of the patient @2200. Initial workup, history, and physical performed by previous provider has been reviewed by myself and I have performed my own physical exam of the patient. HPI: 59-year-old male history of ESRD on hemodialysis reportedly MWF presents for evaluation of altered mental status. According to EMS, they were called to the patient's home by the roommates who found him altered approximate 1 hour prior to arrival. They state they witnessed him using cocaine and drinking large amounts of alcohol earlier in the day. The patient is somnolent but arousable. He is disoriented. GCS 14. Cannot provide any history. According to EMS, roommate states he had dialysis 2 days ago as scheduled but did not go today. Unknown head trauma On reevaluation, patient is still lethargic, GCS 14. Otherwise afebrile. He is arousable to name. He states that his last dialysis was Tuesday, July 18. He cannot tell me why he has missed his dialysis on Tuesday. Labs reviewed. Patient has mild hyperkalemia with potassium of 5.7. EKG is nonischemic. BNP is grossly elevated. Chest x-ray consistent with fluid overl oad. Patient will need admission for hemodialysis. CT head is negative for acute intracranial process. I did review previous admission records. Patient was here close to 1 month ago and admitted for similar presentation after he was sleeping codeine and taking Benadryl at his dialysis facility. He then left the hospital AGAINST MEDICAL ADVICE after he was admitted for his altered mental status. I spoke with Dr. Wu, and reviewed the patients presentation, workup, results, and treatment. They will admit the patient for further care and evaluation, and assume care of the patient at this time. Reevaluation Time: 23:29 Last Vital Signs Date Time Temp Pulse Resp B/P (MAP) Pulse Ox O2 Delivery O2 Flow Rate FiO2 07/23/20 22:00 98.0 65 20 158/95 100 Room Air Status: improved Disposition: ADMITTED INPATIENT Admit Decision Time: 23:29 Condition: Stable Referrals: NOT CHOSEN NANCY/,REFERRING (PCP) Samantha Roe D.O. Jul 23, 2020 23:29
[2020-07-23] MEDS ORDERED: Morphine Sulfate 2mg/ml Inj(IV/IM USE ONLY) IVP PRN (23:30)
--- NOTE | 2020-07-23 23:47 | NUR ---
NURSE NOTES: Received report from SILVESTRE Massey.
[2020-07-24] VITALS (7 sets, daily range): BP systolic 94–148; BP diastolic 70–88
--- NOTE | 2020-07-24 | NUR ---
ED Nurse Note: Patient became cool to touch and extremely diaphoretic. ERMD bedside. Patient was not arousable to deep pain. Accu check done and BS was 26. 2-50mL syringes of dextrose pushed IV per ERMD orders. Will reassess blood sugar.
--- NOTE | 2020-07-24 00:15 | NUR ---
ED Nurse Note: Patient blood sugar is now 246; ERMD aware. Patient is arousable to touch and responds to name. Patient is back to original ER presentation as noted.
--- NOTE | 2020-07-24 00:20 | NUR ---
ED Nurse Note: Patient is now stable for transfer to unit at this time as ordered by MD. Patient responds to touch and name, same as original ED presentation after being given D50 and reassessing blood sugar. He is breathing normal. IV is patent and intact. Patient taken to unit via gurney by RN and randi, connected to site monitor. NAD noted. Belongings remain on patient body. Vital signs are stable at time of ED departure. Patient transferred to tele bed without complication.
--- NOTE | 2020-07-24 00:20 | NUR ---
NURSE NOTES: Received patient from ED, via gurney. Patient is asleep, lethargic and snoring at this time. Place monitoring analyst, shows sinus rhythm with 1st degree AVB,BBB. IV site in on right EJ g-18 that is patent and intact. HD access on left upper arm AV shunt. Patient is on room air sating 92%. At this time, patient is on fall precaution. Safety measures are in place, bed in lowest and locked position, side rails up x 2, bed alarm is on, bedside table and call light button within reach. Will call MD for admission orders.
--- NOTE | 2020-07-24 01:00 | NUR ---
NURSE NOTES: Called Dr. Wu and left a message. Awaiting for call back.
--- NOTE | 2020-07-24 01:10 | NUR ---
NURSE NOTES: Re-checked patient's blood sugar and it's 192 mg/dl. Will continue to monitor.
--- NOTE | 2020-07-24 02:30 | NUR ---
NURSE NOTES: Called Dr. Wu again and left a message, still awaiting for call back. Charge nurse "Jacqueline" aware.
--- NOTE | 2020-07-24 04:25 | NUR ---
NURSE NOTES: Noted patient has a cold clammy skin, Checked blood sugar and it's 72 mg/dl, at this moment patient is still asleep and difficult to arouse. Will call MD again.
--- NOTE | 2020-07-24 05:49 | Consultation ---
Consult Note Consult Note I am asked to evaluate the patient at the request of Dr. Wu for dialysis management Patient seen in room 204. Patient is altered, dysphasic, however arousable Patient known to me from his previous recent admission here at [facility]. HPI: 59-year-old male history of ESRD on hemodialysis reportedly MWF presents for evaluation of altered mental status. According to EMS, they were called to the patient's home by the roommates who found him altered approximate 1 hour prior to arrival. They state they witnessed him using cocaine and drinking large amounts of alcohol earlier in the day. The patient is somnolent but arousable. He is disoriented. GCS 14. Cannot provide any history. According to EMS, roommate states he had dialysis 2 days ago as scheduled but did not go today. Unknown head trauma PMH: ESRD, hypertension PSH: Unable to obtain from patient Allergies: Unable to obtain from patient Social Hx: Unable to obtain from patient Allergies: No Known Allergies (Unverified , 07/24/18) COVID-19 Screening Contact w/high risk pt: No Recent Travel to affected area: No Experienced COVID-19 symptoms?: No COVID-19 Testing performed SALES AND RETAIL MANAGEMENT RECRUITER: No Hx Hypertension: Yes Hx Dialysis: Yes - M-W-F Patient seen in room 204. Examined. VITAL SIGNS: Blood pressure of 110/82, pulse is 79, respirations 18, and temperature 96.7. Patient severely dysphasic. Altered. Upper respiratory gurgling. Heart mainly regular. Abdomen distended soft Lungs decreased breath sound over the bases Fistula left arm . Assessment/Plan Imp: Acute toxic metabolic encephalopathy Rule out CVA Rule out seizure ESRD on hemodialysis History of hypertension History of polysubstance abuse including cocaine Plan: From renal standpoint of view I ordered urgent dialysis treatment Meanwhile we will keep the patient n.p.o. Neuro eval DEE Keep the blood pressure in check with IV Vasotec Discussed with RN Continue per consultants Martín Huff MD Jul 24, 2020 05:49
[2020-07-24 06:48] LABS: BASOPHILS % (AUTO) 1.4 % (0.0-2.0); EOSINOPHILS % (AUTO) 4.8 % (0.0-3.0); HEMATOCRIT 36.1 % (42.0-52.0); LYMPHOCYTES % (AUTO) 28.8 % (20.0-45.0); MEAN CORPUSCULAR VOLUME 96 FL (80-99); MONOCYTES % (AUTO) 7.9 % (1.0-10.0); NEUTROPHILS % (AUTO) 57.1 % (45.0-75.0); PLATELET COUNT 223 K/UL (150-450); RED BLOOD COUNT 3.76 M/UL (4.70-6.10); RED CELL DISTRIBUTION WIDTH 16.4 % (11.6-14.8); WHITE BLOOD COUNT 5.5 K/UL (4.8-10.8)
[2020-07-24 07:07] LABS: ANION GAP 12 mmol/L (5-15); BLOOD UREA NITROGEN 68 mg/dL (7-18); CALCIUM 8.1 MG/DL (8.5-10.1); CARBON DIOXIDE 28 MMOL/L (21-32); CHLORIDE 100 MMOL/L (98-107); CREATININE 16.7 MG/DL (0.55-1.30); POTASSIUM 5.5 MMOL/L (3.5-5.1); SODIUM 140 MMOL/L (136-145)
[2020-07-24 07:19] LABS: ALANINE AMINOTRANSFERASE 19 U/L (12-78); ALBUMIN 3.6 G/DL (3.4-5.0); ALBUMIN/GLOBULIN RATIO 1.2 (1.0-2.7); ALKALINE PHOSPHATASE 141 U/L (46-116); ASPARTATE AMINO TRANSFERASE 28 U/L (15-37); BILIRUBIN,TOTAL 0.6 MG/DL (0.2-1.0); GAMMA GLUTAMYL TRANSPEPTIDASE 31 U/L (5-85)
--- NOTE | 2020-07-24 07:57 | NUR ---
NURSE HAND-OFF REPORT: Important Events on Shift: Patient has been lethargic since patient was trasnferred from ER. Patient Status: Patient is still lethargic, RN made aware of plan of care. Diet: No chocolate/caffeine Pending Orders: Hemodialysis today Pending Results/Labs: results of laboratories this morning Pending MD notification: none Latest Vital Signs: Temperature 97.2 , Pulse 70 , B/P 124 /88 , Respiratory Rate 20 , O2 SAT 94 , Room Air, O2 Flow Rate . Vital Sign Comment: stable EKG Rhythm: SR with 1st degree AVB Rhythm change?: N MD Notified?: - MD Response: Latest Lott Fall Score: 35 Fall Risk: Medium Risk Safety Measures: Call light Within Reach, Bed Alarm Zone 1, Side Rails Side Rails x2, Bed position Low and Locked. Fall Precautions: Yellow Socks Yellow Gown Door Sign Patient Fall Education Report given to SILVESTRE Camara.
--- NOTE | 2020-07-24 08:07 | NUR ---
Received report from SILVESTRE Euceda. Pt sleeping, hard to arouse. When arousable, pt would just open eyes and would look at you but non verbal as of the moment. SL on EJ 18G, asymptomatic, patent and intact. ISAEL AV shunt with for bruit and thrill. Pt scheduled for dialysis. Will need consent to be signed. Bed in low position, side rails up x3 and call light within reach. Will continue to monitor.
[2020-07-24] MEDS ORDERED: Enalaprilat 2.5mg/2ml Inj IV PRN (09:15)
--- NOTE | 2020-07-24 09:27 | NUR ---
TEXTILE COLORIST FORMULATOR NOTE SW attempted to meet w/ pt for substance abuse issue. Pt opened his eyes but was non-verbal. Pt appears lethargic. SW will meet w/ pt when he is stable to engage w/ this SW.
--- NOTE | 2020-07-24 09:58 | Cardiac Electrophysiology PN ---
Subjective Subjective [id number] Objective Last 24 Hour Vital Signs Date Time Temp Pulse Resp B/P (MAP) Pulse Ox O2 Delivery O2 Flow Rate FiO2 07/24/20 08:00 96.7 79 20 120/82 (95) 94 07/24/20 04:00 97.2 70 20 124/88 (100) 94 07/24/20 04:00 67 07/24/20 01:03 Room Air 07/24/20 00:45 91.4 64 22 94/70 (78) 92 07/24/20 00:30 60 07/24/20 00:20 97.3 96 17 135/78 97 Room Air 07/24/20 00:00 97.1 76 14 148/74 95 Room Air 07/23/20 22:00 98.0 65 20 158/95 100 Room Air 07/23/20 21:00 98.2 78 21 149/104 98 Room Air 07/23/20 21:00 78 21 Room Air 07/23/20 20:35 98.2 75 16 151/117 (128) 99 Room Air Intake and Output 07/23/20 07/24/20 19:00 07:00 Intake Total 0 ml Balance 0 ml Intake Oral 0 ml Laboratory Tests Test 07/23/20 20:20 07/23/20 20:50 07/24/20 00:44 07/24/20 04:28 Prothrombin Time 11.3 SEC (9.30-11.50) Prothromb Time International Ratio 1.0 (0.9-1.1) Activated Partial Thromboplast Time 27 SEC (23-33) White Blood Count 7.0 K/UL (4.8-10.8) Red Blood Count 3.64 M/UL (4.70-6.10) L Hemoglobin 12.0 G/DL (14.2-18.0) L Hematocrit 36.2 % (42.0-52.0) L Mean Corpuscular Volume 100 FL (80-99) H Mean Corpuscular Hemoglobin 33.1 PG (27.0-31.0) H Mean Corpuscular Hemoglobin Concent 33.2 G/DL (32.0-36.0) Red Cell Distribution Width 16.9 % (11.6-14.8) H Platelet Count 211 K/UL (150-450) Mean Platelet Volume 6.5 FL (6.5-10.1) Neutrophils (%) (Auto) 64.0 % (45.0-75.0) Lymphocytes (%) (Auto) 22.6 % (20.0-45.0) Monocytes (%) (Auto) 7.0 % (1.0-10.0) Eosinophils (%) (Auto) 4.3 % (0.0-3.0) H Basophils (%) (Auto) 2.0 % (0.0-2.0) Sodium Level 138 MMOL/L (136-145) Potassium Level 5.7 MMOL/L (3.5-5.1) H Chloride Level 100 MMOL/L (98-107) Carbon Dioxide Level 23 MMOL/L (21-32) Anion Gap 15 mmol/L (5-15) Blood Urea Nitrogen 63 mg/dL (7-18) H Creatinine 15.5 MG/DL (0.55-1.30) H Estimat Glomerular Filtration Rate 3.9 mL/min (>60) Glucose Level 93 MG/DL (74-106) Calcium Level 8.3 MG/DL (8.5-10.1) L Total Bilirubin 0.6 MG/DL (0.2-1.0) Aspartate Amino Transf (AST/SGOT) 27 U/L (15-37) Alanine Aminotransferase (ALT/SGPT) 20 U/L (12-78) Alkaline Phosphatase 153 U/L (46-116) H Troponin I 0.055 ng/mL (0.000-0.056) Pro-B-Type Natriuretic Peptide 60495 pg/mL (0-125) H Total Protein 8.2 G/DL (6.4-8.2) Albumin 3.9 G/DL (3.4-5.0) Globulin 4.3 g/dL Albumin/Globulin Ratio 0.9 (1.0-2.7) L Serum Alcohol < 3 mg/dL POC Whole Blood Glucose 194 MG/DL (74-106) H 72 MG/DL (74-106) L Test 07/24/20 05:15 07/24/20 06:39 POC Whole Blood Glucose 180 MG/DL (74-106) H White Blood Count 5.5 K/UL (4.8-10.8) Red Blood Count 3.76 M/UL (4.70-6.10) L Hemoglobin 12.0 G/DL (14.2-18.0) L Hematocrit 36.1 % (42.0-52.0) L Mean Corpuscular Volume 96 FL (80-99) Mean Corpuscular Hemoglobin 31.9 PG (27.0-31.0) H Mean Corpuscular Hemoglobin Concent 33.2 G/DL (32.0-36.0) Red Cell Distribution Width 16.4 % (11.6-14.8) H Platelet Count 223 K/UL (150-450) Mean Platelet Volume 5.5 FL (6.5-10.1) L Neutrophils (%) (Auto) 57.1 % (45.0-75.0) Lymphocytes (%) (Auto) 28.8 % (20.0-45.0) Monocytes (%) (Auto) 7.9 % (1.0-10.0) Eosinophils (%) (Auto) 4.8 % (0.0-3.0) H Basophils (%) (Auto) 1.4 % (0.0-2.0) Sodium Level 140 MMOL/L (136-145) Potassium Level 5.5 MMOL/L (3.5-5.1) H Chloride Level 100 MMOL/L (98-107) Carbon Dioxide Level 28 MMOL/L (21-32) Anion Gap 12 mmol/L (5-15) Blood Urea Nitrogen 68 mg/dL (7-18) H Creatinine 16.7 MG/DL (0.55-1.30) H Estimat Glomerular Filtration Rate 3.6 mL/min (>60) Glucose Level 97 MG/DL (74-106) Hemoglobin A1c 4.5 % (4.3-6.0) Lactic Acid Level 1.30 mmol/L (0.4-2.0) Uric Acid 6.7 MG/DL (2.6-7.2) Calcium Level 8.1 MG/DL (8.5-10.1) L Phosphorus Level 6.0 MG/DL (2.5-4.9) H Magnesium Level 2.6 MG/DL (1.8-2.4) H Total Bilirubin 0.6 MG/DL (0.2-1.0) Gamma Glutamyl Transpeptidase 31 U/L (5-85) Aspartate Amino Transf (AST/SGOT) 28 U/L (15-37) Alanine Aminotransferase (ALT/SGPT) 19 U/L (12-78) Alkaline Phosphatase 141 U/L (46-116) H Troponin I 0.038 ng/mL (0.000-0.056) C-Reactive Protein, Quantitative < 0.4 mg/dL (0.00-0.90) Pro-B-Type Natriuretic Peptide 76358 pg/mL (0-125) H Total Protein 6.7 G/DL (6.4-8.2) Albumin 3.6 G/DL (3.4-5.0) Globulin 3.1 g/dL Albumin/Globulin Ratio 1.2 (1.0-2.7) Thyroid Stimulating Hormone (TSH) 1.106 uiU/mL (0.358-3.740) Tye Delvalle MD Jul 24, 2020 09:58
--- NOTE | 2020-07-24 10:01 | NUR ---
Dr. Huff ordered hemodialysis. Called [facility] nephrology and spoke with Albino. He states he will have Young, dialysis nurse call back.
--- NOTE | 2020-07-24 10:10 | NUR ---
NURSE NOTES: Received a call from [facility] dialysis nurse. She states she will be in the hospital later on the afternoon to dialyze patient.
[2020-07-24] MEDS ORDERED: Varibar Honey 250ml MC PRN (10:30)
[2020-07-24] MEDS ORDERED: Varibar Nectar 240ml MC PRN (10:30)
[2020-07-24] MEDS ORDERED: Varibar Thin Liquid powder 148gm MC PRN (10:30)
[2020-07-24] MEDS ORDERED: Varibar Pudding 230ml MC PRN (10:30)
--- NOTE | 2020-07-24 11:00 | Consultation ---
DATE OF CONSULTATION: 07/24/2020 CARDIOLOGY CONSULTATION CONSULTING PHYSICIAN: Tye Delvalle MD. REFERRING PHYSICIAN: Dheeraj Wu DO. REASON FOR CONSULTATION: Management of hypertension and hyperkalemia. HISTORY OF PRESENT ILLNESS: The patient is a 59-year-old gentleman with history of hypertension and end-stage renal disease, on hemodialysis Tuesday, Tuesday and Tuesday, who was brought to the emergency room for evaluation of altered mental status. Per paramedics, the patient was called to home by a roommate who found him altered an hour prior to arrival. They witnessed him using cocaine and drinking a large amount of alcohol during the day. The patient had dialysis two days earlier, was scheduled but he did not go. In the ER, the patient was found to have a potassium of 5.7, BNP was grossly elevated, and CT of the head was negative for acute intracranial process. It is of note that the patient was here about a month ago and was admitted with similar presentation, and he left against medical advice. REVIEW OF SYSTEMS: Cannot be obtained as currently the patient is nonverbal. PAST MEDICAL HISTORY: As mentioned above. FAMILY HISTORY: Noncontributory. SOCIAL HISTORY: He uses alcohol and cocaine. Lives at home. PHYSICAL EXAMINATION: VITAL SIGNS: Blood pressure of 110/82, pulse is 79, respirations 18, and temperature 96.7. HEAD AND NECK: Showed no JVD. LUNGS: Decreased breath sounds. CARDIOVASCULAR: Shows regular S1 and S2 with no gallop. ABDOMEN: Soft. EXTREMITIES: AV shunt in the left upper extremity. LABORATORY AND DIAGNOSTIC DATA: Labs show white count 5.5, hematocrit 12.1, hematocrit 36, and platelet count 223,000. Sodium is 140, potassium 5.5, BUN of , creatinine 16.7. Glucose of 97. First troponin is negative. BNP is more than 30,000. ASSESSMENT AND PLAN: 1. Volume overload with BNP of more than 30,000. The patient is awaiting hemodialysis. Further evaluation by Dr. Huff. We will get an echocardiogram for further evaluation. It is of note the patient's troponins are both negative. 2. Hypertension. The patient is n.p.o., not able to take anything p.o. I will start the patient on IV Vasotec p.r.n. 3. Altered mental status. Head CT was negative for intracranial process. Neurology evaluation is pending. 4. Hyperkalemia in a patient with renal failure. 5. Diabetes. 6. Noncompliance. 7. Polysubstance abuse. Thank you very much for allowing me to participate in the care of this patient. Please do not hesitate to contact me for any questions regarding my evaluation. Tye Delvalle M.D. DR: PAVEL JOB#: [id number] CC:
--- NOTE | 2020-07-24 12:00 | NUR ---
CASE MANAGEMENT:INITIAL REVIEW 59 YR OLD MALE FROM HOME CC;ALTERED MENTAL STATUS SI;HYPERKALEMIA. AMS. ESRD. 98.2 78 21 158/95 95% ON RA K+ 5.7 BUN 63 CR 15.5 ALP 153 BNP 60533 IS;CALCIUM GLUCONATE IV ONCE INSULIN REGULAR IN ONCE D50 IV 50 ML ONCE SODIUM BICARB IV ONCE ADMITTED TO TELE 07/24/20 @ 0829 TELE STATUS DCP;FROM HOME PLAN; NPO INPATIENT HD HEP B PANEL GLUCOSE MONITORING Addendum: 07/24/20 at 1254 by FELICITA LEWIS LVN LVN SI;HEAD CT ~ 1. Areas of decreased density in the white matter which are nonspecific but are likely related to small vessel ischemic changes. 2. Cerebral atrophy.
--- NOTE | 2020-07-24 12:51 | NUR ---
INSURANCE CLINICALS AND REVIEW FAXED TO [facility] P: [phone] F: [phone]
--- NOTE | 2020-07-24 13:54 | Cardiology Report ---
APPROVED REPORT EKG Measurement Heart [id number] <Conclusion> Sinus rhythm with 1st degree AV block Possible Left atrial enlargement Right superior axis deviation Incomplete right bundle branch block Right ventricular hypertrophy with repolarization abnormality Nonspecific T wave abnormality Prolonged QT Abnormal ECG
--- NOTE | 2020-07-24 14:32 | Cardiology Report ---
APPROVED REPORT EXAM: Two-dimensional and M-mode echocardiogram with Doppler and color Doppler. INDICATION Congestive Heart Failure M-Mode DIMENSIONS IVSd0.9 (0.7-1.1cm)Left Atrium (MM)4.1 (1.6-4.0cm) LVDd4.4 (3.5-5.6cm)Aortic Root3.7 (2.0-3.7cm) PWd1.0 (0.7-1.1cm)Aortic Cusp Exc.2.4 (1.5-2.0cm) IVSs1.3 cm LVDs2.7 (2.5-4.0cm) PWs1.4 cm <Conclusion> Technically difficult study due to pts position all images obtained from subcostal views. Normal left ventricular chamber size, systolic function and wall motion to extent visualized. Left ventricular ejection fraction estimated to be 60 %. Mild left ventricular hypertrophy. No evidence of pericardial effusion. Mild left atrial enlargement. Right cardiac chamber sizes are within normal limits. Focal aortic valve sclerosis with normal cusp excursion. Thickened mitral valve leaflets with normal excursion. Mitral annulus and aortic root calcification. Pulmonic valve not well visualized. Normal tricuspid valve structure. IVC at normal size with physiologic collapse. A color flow and spectral Doppler study was performed and revealed: No aortic insufficiency. Trace mitral regurgitation. Mitral diastolic velocities suggest reduced left ventricular relaxation c/w mild LV diastolic dysfunction (Grade I ). Trace tricuspid regurgitation. Tricuspid systolic velocities suggests peak right ventricular systolic pressure of 20 mmHg.
--- NOTE | 2020-07-24 15:38 | Diagnostic Imaging Report ---
Procedure: XRAY Chest 1v Reason for study: Reason For Exam: SOB Comparison films: 02/08/2020. FINDINGS: A single one view chest is obtained. There is vascular engorgement and redistribution. Bilateral interstitial densities noted. There is likely congestion and early edema. Cardiomegaly with tortuous aorta unchanged. CP angles are sharp. The bony thorax appear unremarkable. IMPRESSION: Vascular engorgement and interstitial prominence perhaps early edema.
--- NOTE | 2020-07-24 17:14 | History and Physical Report ---
DATE OF ADMISSION: 07/23/2020 DATE AND TIME SEEN: 07/25/2020 at 12 noon. CONSULTANTS: 1. Vikas Simmons MD 2. Martín Huff MD 3. Tye Delvalle MD 4. Jg Mccarthy MD CHIEF COMPLAINT: Altered mental status, ESRD, possible CVA. BRIEF HISTORY: This is a 59-year-old male, who gets dialysis regularly came in with history of altered mental status and hyperkalemia, was admitted to [facility]. Currently in bed, O2 NC, sleeping in bed, not talking much. REVIEW OF SYSTEMS: Unavailable. PAST MEDICAL HISTORY: Includes ESRD, acute coronary syndrome, hypertension, diabetes. PAST SURGICAL HISTORY: Unknown. MEDICATIONS: Include enalapril, clonidine, ibuprofen, Zofran, morphine, insulin. ALLERGIES: Denies. SOCIAL HISTORY: Unable to obtain. Patient is very lethargic . PHYSICAL EXAMINATION: GENERAL: O2 NC, sleeping in bed, not talking much. VITAL SIGNS: Temperature 97 degrees, pulse 79, respirations 20, blood pressure 120/82. CARDIOVASCULAR: No murmur. LUNGS: Distant, clear. ABDOMEN: Bowel sounds positive. Nontender. Nondistended. EXTREMITIES: No cyanosis, clubbing, or edema. LABORATORY AND DIAGNOSTIC DATA: Labs at this time show hemoglobin and hematocrit 12/36, otherwise CBC is normal. BMP show potassium 5.5, BUN/creatinine 60/16.7, calcium 8.1. [place] 0[place] [address]. INR is 1.0. ASSESSMENT: 1. Altered mental status. 2. Hyperkalemia. 3. ESRD. 4. Possible CVA. 5. Anemia. 6. ACS. 7. Hypertension. 8. Diabetes. PLAN: 1. O2, pulmonary treatment. 2. Blood pressure, blood sugar, pain control. 3. Dietary followup. 4. We will add Dr. Caal, pulmonary evaluation. 5. Continue to follow this patient. 6. Dialysis p.r.n. Dheeraj Wu D.O. DR: SADIA JOB#: [id number] CC:
[2020-07-24] MEDS: Ziprasidone 20mg cap ORAL SCH (18:00)
--- NOTE | 2020-07-24 18:45 | Consultation ---
DATE OF CONSULTATION: 07/24/2020 CONSULTING PHYSICIAN: Jg Mccarthy MD HISTORY OF PRESENT ILLNESS: This is a 59-year-old male patient who was admitted to the hospital secondary to hyperkalemia. He hemodialysis. He also has altered mental status, so he is being admitted to the hospital for those reasons. Because of his altered mental status and decline in cognition below his baseline, his attending has requested daily psychiatric consultation for this patient. That is why, he does require daily psychiatric consultation due to his altered mental status and confusion. I saw and assessed him at the bedside. He does appear to be confused and disorganized. He has got decline in cognition below his baseline. MEDICAL PROBLEMS: He has a history of hyperkalemia, end-stage renal disease, diabetes, hypertension, and fluid overload. ALLERGIES: No known drug allergies. PSYCHOTROPIC MEDICATIONS ON ADMISSION: Unknown. Patient is a poor historian. SUBSTANCE ABUSE HISTORY: He has a history of alcohol abuse. According to roommate, patient was seen taking excessive amount of alcohol before he was seen with altered mental status. He also has a history of cocaine use as well. FAMILY PSYCHIATRIC HISTORY: Denies. PAIN ASSESSMENT: 01/07 pain. DEVELOPMENTAL PROBLEMS: Denies. SOCIAL HISTORY: Patient lives in a private residence. Financially supported by insurance. FAMILY RELATIONSHIPS: Fair. LEGAL PROBLEMS: No known legal problems. PSYCHIATRIC HISTORY: Major depressive disorder, mild, recurrent with psychotic features. Patient is unable to give any details. STRENGTHS: He is motivated to get better and has a place to live. . WEAKNESSES: Impulsive, minimal support system. MENTAL STATUS EXAMINATION: This is a 59-year-old male. His appearance is disheveled. His attitude is irritable and agitated. His affect is labile. Intellect is poor because he does know current events at the time of interview. Does not know the last four presidents. Mood, depressed and anxious. Motor activity, psychomotor agitation. Attention span is poor because he cannot do serial sevens or spell world backwards. Orientation x2, oriented to person and place, but not to time and situation. Speech is slurred, nonsensical. Thought process, disorganized and illogical. Thought content, seems to have some paranoid delusions. Perception is poor because of perceptual disturbance such as paranoid delusions. Abstract reasoning is poor because he does not understand proverbs and only has concrete thinking. Insight is poor because he does not recognize having a cognitive disorder. Judgment is poor because he seems altered and is not clear as far as his medical care. Unable to make clear medical decisions for himself. As far as his short-term memory, 3/3 word recall after 5-minute delay with good short-term memory. Long-term memory is poor. He has difficulty to recall long-term events in his life such as high school that he went to. DIAGNOSES: 1. Major depressive disorder, severe, recurrent with psychotic features. 2. Secondary is cocaine and alcohol abuse. 3. Medical includes diabetes, hypertension, fluid overload, hyperkalemia, end-stage renal disease. 4. Psychosocial stressors financial. 5. Functional impairment severe. PLAN: Treat this patient with psychotropic medication regimen consisting of Geodon at a dose of 20 mg twice a day to help stabilize his mood. Twenty minutes of cognitive behavioral therapy to help him identify his automatic negative thoughts, help him convert his negative thoughts to more positive thoughts to reduce depression, anxiety, mood lability. Chart reviewed. Discussed with staff. Seen and assessed at the bedside. Jg Mccarthy M.D. DR: ROSARIO JOB#: [id number] CC:
--- NOTE | 2020-07-24 19:20 | NUR ---
NURSE HAND-OFF REPORT: Important Events on Shift:[] Patient Status: [] Diet: [] Pending Orders: [] Pending Results/Labs:[] Pending MD notification:[] Latest Vital Signs: Temperature 98.1 , Pulse 82 , B/P 109 /80 , Respiratory Rate 20 , O2 SAT 100 , Nasal Cannula, O2 Flow Rate 2.0 . Vital Sign Comment: [] EKG Rhythm: SR with 1st degree AVB Rhythm change?: N MD Notified?: - MD Response: Latest Lott Fall Score: 35 Fall Risk: Medium Risk Safety Measures: Call light Within Reach, Bed Alarm Zone 1, Side Rails Side Rails x3, Bed position Low and Locked. Fall Precautions: Yellow Socks Patient Fall Education Report given to [SILVESTRE Bonilla].
--- NOTE | 2020-07-24 19:38 | NUR ---
NURSE NOTES: Received report from SILVESTRE Camara. Patient is awake, still non-verbal at this time. cafeteria monitor is in place, shows Sinus rhythm with 1st degree AVB. On oxygen via nasal cannula @ 2Lpm, sating 95%. Patient is on NPO. On fall precaution, bed alarm is on. IV site is on right EJ G-18, running fluid of D5W 1L @ 50 cc/hour that is patent and intact. HD access on left upper arm AV shunt. Safety measures are in place, bed in lowest and locked position, side rails up x 2. Will continue plan of care.
--- NOTE | 2020-07-24 20:36 | Consultation ---
Consult Note Consult Note HISTORY OF PRESENT ILLNESS: The patient is a 59-year-old male with history of hypertension and end-stage renal disease, on hemodialysis Tuesday, Tuesday and Tuesday, who was brought to the emergency room for evaluation of altered mental status. Per paramedics, the patient was called to home by a roommate who found him altered an hour prior to arrival. They witnessed him using cocaine and drinking a large amount of alcohol during the day. The patient had dialysis two days earlier, was scheduled but he did not go. In the ER, the patient was found to have a potassium of 5.7, BNP was grossly elevated, and CT of the head was negative for acute intracranial process. It is of note that the patient was here about a month ago and was admitted with similar presentation, and he left against medical advice. REVIEW OF SYSTEMS: Cannot be obtained as currently the patient is nonverbal. PAST MEDICAL HISTORY: As mentioned above. FAMILY HISTORY: Noncontributory. SOCIAL HISTORY: He uses alcohol and cocaine. Lives at home. PHYSICAL EXAMINATION: VITAL SIGNS: Blood pressure of 110/82, pulse is 79, respirations 18, and temperature 96.7. HEAD AND NECK: Showed no JVD. LUNGS: Decreased breath sounds. CARDIOVASCULAR: Shows regular S1 and S2 with no gallop. ABDOMEN: Soft. EXTREMITIES: AV shunt in the left upper extremity. LABORATORY AND DIAGNOSTIC DATA: Labs show white count 5.5, hematocrit 12.1, hematocrit 36, and platelet count 223,000. Sodium is 140, potassium 5.5, creatinine 16.7. Glucose of 97. First troponin is negative. BNP is more than 30,000. ASSESSMENT AND PLAN: 1. Volume overload with BNP of more than 30,000. The patient is awaiting hemodialysis. Further evaluation by Dr. Huff. 2. Hypertension. The patient is n.p.o., agree with IV Vasotec p.r.n. 3. Altered mental status. Head CT was negative for intracranial process. 4. Hyperkalemia in a patient with renal failure. 5. Diabetes. 6. Noncompliance. 7. Polysubstance abuse. Patient is currently saturating well on nasal o2; will continue CXR shows mild vascular congestion Germania Leonardo Omar Syed MD Jul 24, 2020 20:36
[2020-07-24] MEDS ORDERED: LORazepam Inj 2mg/ml 1ml IV PRN (23:45)
[2020-07-25] VITALS (12 sets, daily range): BP systolic 85–137; BP diastolic 61–93
--- NOTE | 2020-07-25 06:52 | Pulmonology Progress Note ---
Subjective Interval Events: None new Constitutional: Reports: no symptoms HEENT: Repors: no symptoms Respiratory: Reports: dry cough, shortness of breath Cardiovascular: Reports: no symptoms Gastrointestinal/Abdominal: Reports: no symptoms Genitourinary: Reports: no symptoms Allergies: Coded Allergies: No Known Allergies (Unverified , 07/24/18) Objective Last 24 Hour Vital Signs Date Time Temp Pulse Resp B/P (MAP) Pulse Ox O2 Delivery O2 Flow Rate FiO2 07/25/20 04:00 90 07/25/20 04:00 98.1 81 21 109/80 (90) 100 07/25/20 00:00 96.7 84 25 133/78 (96) 100 07/25/20 00:00 107 07/24/20 21:00 Nasal Cannula 2.0 07/24/20 20:00 97.6 92 18 134/82 (99) 93 07/24/20 20:00 105 07/24/20 16:00 82 07/24/20 16:00 98.1 81 20 109/80 (90) 100 07/24/20 12:00 72 07/24/20 11:00 95.7 76 20 107/72 (84) 100 07/24/20 09:00 Nasal Cannula 2.0 07/24/20 08:00 81 07/24/20 08:00 96.7 79 20 120/82 (95) 94 Intake and Output 07/24/20 07/25/20 19:00 07:00 Intake Total 0 ml Balance 0 ml Intake Oral 0 ml General Appearance: WD/WN HEENT: normocephalic Respiratory: chest wall non-tender, decreased breath sounds Cardiovascular: normal peripheral pulses Abdomen: normal bowel sounds Extremities: no cyanosis Laboratory Tests 07/24/20 09:07: POC Whole Blood Glucose [Pending] 07/24/20 16:43: POC Whole Blood Glucose 112H Current Medications Medications (Trade) Dose Ordered Sig/Jerman Route PRN Reason Start Time Stop Time Status Last Admin Dose Admin Barium Sulfate (Varibar Honey) 250 ml NOW PRN MC RAD 07/24/20 10:30 07/27/20 10:24 Barium Sulfate (Varibar [place]) 240 ml NOW PRN MC RAD 07/24/20 10:30 07/27/20 10:24 Barium Sulfate (Varibar Pudding) 230 ml NOW PRN MC RAD 07/24/20 10:30 07/27/20 10:24 Barium Sulfate (Varibar Thin Liquid powder) 148 gm NOW PRN MC RAD 07/24/20 10:30 07/27/20 10:24 Dextrose 1,000 ml @ 50 mls/hr Q20H IV 07/24/20 06:00 08/23/20 05:59 07/25/20 02:31 Enalaprilat (Vasotec) 2.5 mg Q6H PRN IV bp over 160 syst 07/24/20 09:15 08/23/20 09:14 Lorazepam (Ativan 2mg/ml 1ml) 1 mg Q4H PRN IV Restlessness 07/24/20 23:45 07/31/20 23:44 Ziprasidone (Geodon) 20 mg TWICE A DAY ORAL 07/24/20 18:00 09/07/20 17:59 Assessment/Plan Assessment/Plan ASSESSMENT AND PLAN: 1. Volume overload with BNP of more than 30,000. Hemodialysis per Dr. Huff. 2. Hypertension. The patient is n.p.o., agree with IV Vasotec p.r.n. 3. Altered mental status. Head CT was negative for intracranial process. 4. Hyperkalemia in a patient with renal failure. 5. Diabetes. 6. Noncompliance. 7. Polysubstance abuse. Patient is currently saturating well on nasal o2; will continue CXR shows mild vascular congestion Germania Leonardo Omar Syed MD Jul 25, 2020 06:52
[2020-07-25 07:30] LABS: BASOPHILS % (AUTO) 1.3 % (0.0-2.0); EOSINOPHILS % (AUTO) 4.8 % (0.0-3.0); HEMATOCRIT 44.6 % (42.0-52.0); HEMOGLOBIN 15.3 G/DL (14.2-18.0); LYMPHOCYTES % (AUTO) 20.5 % (20.0-45.0); MEAN CORPUSCULAR VOLUME 95 FL (80-99); MONOCYTES % (AUTO) 7.5 % (1.0-10.0); NEUTROPHILS % (AUTO) 65.8 % (45.0-75.0); PLATELET COUNT 217 K/UL (150-450); RED CELL DISTRIBUTION WIDTH 16.4 % (11.6-14.8); WHITE BLOOD COUNT 6.7 K/UL (4.8-10.8)
--- NOTE | 2020-07-25 07:52 | NUR ---
NURSE HAND-OFF REPORT: Important Events on Shift: Patient is much awake at this time, able to follow simple commands. Patient Status: Patient is awake on bed, no SOB noted. Plan of care endorsed Diet: NPO Pending Orders: NONE Pending Results/Labs:NONE Pending MD notification:NONE Latest Vital Signs: Temperature 98.1 , Pulse 90 , B/P 109 /80 , Respiratory Rate 21 , O2 SAT 100 , Nasal Cannula, O2 Flow Rate 2.0 . Vital Sign Comment: Stable EKG Rhythm: Sinus Rhythm Rhythm change?: Y MD Notified?: N - MD Response: Latest Lott Fall Score: 45 Fall Risk: High Risk Safety Measures: Call light Within Reach, Bed Alarm Zone 1, Side Rails Side Rails x3, Bed position Low and Locked. Fall Precautions: Yellow Socks Yellow Gown Door Sign Patient Fall Education Report given to SILVESTRE Coronado.
[2020-07-25 07:55] LABS: CALCIUM 8.8 MG/DL (8.5-10.1); CREATININE 12.8 MG/DL (0.55-1.30); POTASSIUM 5.9 MMOL/L (3.5-5.1)
--- NOTE | 2020-07-25 07:59 | NUR ---
NURSE NOTES: Received report from Kinsey/RN. Pt awake lying semi-fowlers. On 2L nasal cannula, no distress or SOB noted. IV on right EJ 18G running D5W at 50 cc/hr. Call light within reach, encourage to use it when needed. Bed in the lowest position and locked, side rails up X3. Will continue plan of care.
--- NOTE | 2020-07-25 08:30 | Psychiatry Consultation ---
Psychiatry Consultation Psychiatry Consultation Chief Complaint: Altered Mental Status History of Present Illness: 59-year-old male patient name Britton appears to confused disorganized she is got altered mental status secondary to hyperkalemia as well as acute renal failure on hemodialysis but this patient still appears confused on and off with altered mental status he is slightly responsive but still nonsensical and so because his cognition has declined below his baseline as well as attending is requested daily psychiatric consultation Mental status examination: Mental status evaluation this is a 59-year-old male has appears disheveled anterior right-sided affect guarded restricted intellect poor mood depressed anxious moderate degree of psychomotor station judgment poor orientation x3 speech is poor Diagnosis schizoaffective bipolar type Allergies: Coded Allergies: No Known Allergies (Unverified , 07/24/18) Medication History Scheduled Cinacalcet* (Sensipar*), 30 MG ORAL DAILY, (Reported) Clonidine HCl (Clonidine HCl), 0.3 MG PO DAILY, (Reported) Esomeprazole Magnesium (Nexium), 40 MG ORAL DAILY, (Reported) Esomeprazole Magnesium (Nexium), 40 MG ORAL DAILY, (Reported) Metoprolol Tartrate* (Metoprolol Tartrate*), 50 MG ORAL DAILY, (Reported) Mv-Mn/Iron/Fa/Herbal Cmplx#190 (Vitamin D3 Complete Caplet), 1 EACH PO DAILY, (Reported) Nifedipine Er* (Adalat Cc*), 30 MG ORAL BID, (Reported) Nifedipine Xl* (Procardia Xl*), 30 MG ORAL DAILY, (Reported) Sevelamer HCl (Renagel), 800 MG ORAL THREE TIMES A DAY, (Reported) Vitamin B Complex (B Complex), 1 TAB ORAL DAILY, (Reported) Scheduled PRN Clonidine Hcl* (Catapres*), 0.1 MG ORAL EVERY 6 HOURS PRN for DIALYSIS, (Reported) Diphenhydramine Hcl* (Diphenhydramine Hcl*), 50 MG ORAL Q6H PRN for DIALYSIS, (Reported) OXYCODONE HCl* (Roxicodone*), 30 MG ORAL Q3HR PRN for For Pain, (Reported) Miscellaneous Medications [meoprolol], (Reported) Discontinued Medications Azithromycin* (Zithromax*), 250 MG ORAL DAILY Discontinued Reason: Pt stopped taking med Objective Data Height (Feet): 6 Height (Inches): 0.00 Weight (Pounds): 180 Assessment/Plan Assessment/Plan: Treat this patient with admitted regimen of Geodon 20 mg twice a day help stabilize his mood and provided with 20 minutes of cognitive behavioral therapy will help monitor approximately helpful for his negative thoughts to conmvert to more positive thoughts to persist living dose of July 26 revealed this definitely seems less depressed affect Diagnosis [place] I: Paranoid schizophrenia with acute observation rule out depression with psychotic features Jg Mccarthy MD Jul 25, 2020 08:30
--- NOTE | 2020-07-25 09:48 | General Progress Note ---
Subjective Constitutional: Reports: weakness Allergies: Coded Allergies: No Known Allergies (Unverified , 07/24/18) All Systems: reviewed and negative except above Subjective calm in room sleepy Objective Last 24 Hour Vital Signs Date Time Temp Pulse Resp B/P (MAP) Pulse Ox O2 Delivery O2 Flow Rate FiO2 07/25/20 04:00 90 07/25/20 04:00 98.1 81 21 109/80 (90) 100 07/25/20 00:00 96.7 84 25 133/78 (96) 100 07/25/20 00:00 107 07/24/20 21:00 Nasal Cannula 2.0 07/24/20 20:00 97.6 92 18 134/82 (99) 93 07/24/20 20:00 105 07/24/20 16:00 82 07/24/20 16:00 98.1 81 20 109/80 (90) 100 07/24/20 12:00 72 07/24/20 11:00 95.7 76 20 107/72 (84) 100 Intake and Output 07/24/20 07/25/20 18:59 06:59 Intake Total 0 ml Balance 0 ml Intake Oral 0 ml Laboratory Tests 07/24/20 16:43: POC Whole Blood Glucose 112H 07/25/20 05:10: White Blood Count 6.7, Red Blood Count 4.70, Hemoglobin 15.3, Hematocrit 44.6, Mean Corpuscular Volume 95, Mean Corpuscular Hemoglobin 32.5H, Mean Corpuscular Hemoglobin Concent 34.2, Red Cell Distribution Width 16.4H, Platelet Count 217, Mean Platelet Volume 6.0L, Neutrophils (%) (Auto) 65.8, Lymphocytes (%) (Auto) 20.5, Monocytes (%) (Auto) 7.5, Eosinophils (%) (Auto) 4.8H, Basophils (%) (Auto) 1.3, Sodium Level 133L, Potassium Level 5.9H, Chloride Level 93L, Carbon Dioxide Level 26, Anion Gap 14, Blood Urea Nitrogen 39H, Creatinine 12.8H, Estimat Glomerular Filtration Rate 4.8, Glucose Level 87, Calcium Level 8.8, Troponin I 0.033, Pro-B-Type Natriuretic Peptide 17865Q Height (Feet): 6 Height (Inches): 0.00 Weight (Pounds): 180 General Appearance: lethargic EENT: normal ENT inspection Neck: normal alignment Cardiovascular: normal peripheral pulses, normal rate, regular rhythm Respiratory/Chest: chest wall non-tender, lungs clear, normal breath sounds Abdomen: normal bowel sounds, non tender, soft Extremities: normal inspection Edema: no edema noted Arm (L), no edema noted Arm (R), no edema noted Leg (L), no edema noted Leg (R), no edema noted Pedal (L), no edema noted Pedal (R), no edema noted Generalized Neurologic: motor weakness Skin: normal pigmentation, warm/dry Assessment/Plan Problem List: (1) AMS (altered mental status) ICD Codes: R41.82 - Altered mental status, unspecified SNOMED: 627431566 (2) Weak ICD Codes: R53.1 - Weakness SNOMED: 46386397 (3) Anemia ICD Codes: D64.9 - Anemia SNOMED: 618819592 (4) ESRD (end stage renal disease) on dialysis ICD Codes: N18.6 - ESRD (end stage renal disease) on dialysis; Z99.2 - Dependence on renal dialysis SNOMED: 633216127 (5) HTN (hypertension) ICD Codes: I10 - HTN (hypertension) SNOMED: 25947214 (6) ACS (acute coronary syndrome) ICD Codes: I24.9 - Acute ischemic heart disease, unspecified SNOMED: 181103073 Status: unchanged Assessment/Plan: pt diet bp bs control neuro f/u dialysis cbc bmp in am Dheeraj Madden DO Jul 25, 2020 09:48
[2020-07-25] MEDS: Ziprasidone 20mg cap ORAL SCH ×2 (10:10→18:00)
--- NOTE | 2020-07-25 10:18 | NUR ---
Speech Pathology Note (Bedside Dysphagia Evaluation) Indication of Evaluation: NPO status, to restart PO diet ED notes, H/P consults and RN notes, labs flow noted. S: Good/Strong eye contact, but non-verbal O: Pt was unable to carefully self feed, thus I fed him fruit cup and cranberry juice. Pt was able to tolerate both PO trial without difficulties, pocket food or s.s of aspiration. A/P 1. Functional swallow 2. Reduced skills for self feeding due to AMS with multifactorial Po diet with mechanical soft diet and thin liquid 1:1 needed until he becomes at his baseline. No skilled SP intervention indicated at this time. Enid Angelo
--- NOTE | 2020-07-25 11:01 | NUR ---
DISCHARGE PLANNING ORDER NOTED FAXED CLINICALS TO [facility] T: [phone] F: [phone] Addendum: 07/25/20 at 1236 by ANNA KATHLEEN LVN LVN PATIENT NEEDS A PT EVAL AND COVID SWAB FOR ACCEPTANCE AT [facility] Addendum: 07/25/20 at 1242 by ANNA KATHLEEN LVN LVN SPOKE WITH PATIENT'S BROTHER PETER GREEN PATIENT GOES TO DIALYSIS AT [facility] AND [address] [place] [address] PETER ALSO STATED THE ENTIRE FAMILY IS IN AGREEMENT WITH PATIENT DISCHARGING TO [facility] Addendum: 07/25/20 at 1246 by ANNA KATHLEEN LVN LVN PER PATIENT'S BROTHER HE WAS WAS FULLY INDEPENDENT AND DROVE HIMSELF TO AND FROM DIALYSIS [facility] WILL NOT ACCEPT WITHOUT PT NOTES
--- NOTE | 2020-07-25 11:16 | Cardiac Electrophysiology PN ---
Assessment/Plan Assessment/Plan 1. Volume overload with BNP of more than 30,000. The patient is awaiting hemodialysis. Further evaluation Had HD yesterday and will be getting another one today by Dr. Huff. It is of note the patient's troponins are both negative. EF 60% 2. Hypertension. On HD and IV Vasotec p.r.n. 3. Altered mental status. Head CT was negative for intracranial process. Neurology evaluation is pending.Likely metabolic. Better after HD 4. Hyperkalemia in a patient with renal failure. 5. Diabetes. 6. Noncompliance. 7. Polysubstance abuse. Subjective Subjective More alert after HD yesterday. Getting another HD today. Objective Last 24 Hour Vital Signs Date Time Temp Pulse Resp B/P (MAP) Pulse Ox O2 Delivery O2 Flow Rate FiO2 07/25/20 08:00 90 07/25/20 08:00 98.1 87 20 137/79 (98) 97 07/25/20 04:00 90 07/25/20 04:00 98.1 81 21 109/80 (90) 100 07/25/20 00:00 96.7 84 25 133/78 (96) 100 07/25/20 00:00 107 07/24/20 21:00 Nasal Cannula 2.0 07/24/20 20:00 97.6 92 18 134/82 (99) 93 07/24/20 20:00 105 07/24/20 16:00 82 07/24/20 16:00 98.1 81 20 109/80 (90) 100 07/24/20 12:00 72 Intake and Output 07/24/20 07/25/20 19:00 07:00 Intake Total 0 ml Balance 0 ml Intake Oral 0 ml Laboratory Tests Test 07/24/20 16:43 07/25/20 05:10 POC Whole Blood Glucose 112 MG/DL (74-106) H White Blood Count 6.7 K/UL (4.8-10.8) Red Blood Count 4.70 M/UL (4.70-6.10) Hemoglobin 15.3 G/DL (14.2-18.0) Hematocrit 44.6 % (42.0-52.0) Mean Corpuscular Volume 95 FL (80-99) Mean Corpuscular Hemoglobin 32.5 PG (27.0-31.0) H Mean Corpuscular Hemoglobin Concent 34.2 G/DL (32.0-36.0) Red Cell Distribution Width 16.4 % (11.6-14.8) H Platelet Count 217 K/UL (150-450) Mean Platelet Volume 6.0 FL (6.5-10.1) L Neutrophils (%) (Auto) 65.8 % (45.0-75.0) Lymphocytes (%) (Auto) 20.5 % (20.0-45.0) Monocytes (%) (Auto) 7.5 % (1.0-10.0) Eosinophils (%) (Auto) 4.8 % (0.0-3.0) H Basophils (%) (Auto) 1.3 % (0.0-2.0) Sodium Level 133 MMOL/L (136-145) L Potassium Level 5.9 MMOL/L (3.5-5.1) H Chloride Level 93 MMOL/L (98-107) L Carbon Dioxide Level 26 MMOL/L (21-32) Anion Gap 14 mmol/L (5-15) Blood Urea Nitrogen 39 mg/dL (7-18) H Creatinine 12.8 MG/DL (0.55-1.30) H Estimat Glomerular Filtration Rate 4.8 mL/min (>60) Glucose Level 87 MG/DL (74-106) Calcium Level 8.8 MG/DL (8.5-10.1) Troponin I 0.033 ng/mL (0.000-0.056) Pro-B-Type Natriuretic Peptide 44934 pg/mL (0-125) H Objective HEAD AND NECK: Showed no JVD. LUNGS: Decreased breath sounds. CARDIOVASCULAR: Shows regular S1 and S2 with no gallop. ABDOMEN: Soft. EXTREMITIES: AV shunt in the left upper extremity. Tye Delvalle MD Jul 25, 2020 11:16
--- NOTE | 2020-07-25 12:24 | NUR ---
CASE MANAGEMENT:REVIEW 07/25/20 SI: AMS. ANEMIA. ACS ESRD ON HD 98.1 87 20 137/79 97% ON 2L/NC NA-133 K+5.9 BUN+39 CR+12.8 IS: GEODON PO BID IVF@50/HR IV ATIVAN Q4HRS PRN : TELEMETRY STATUS DCP: PATIENT HAS BEEN REFERRED TO ARU PLAN: RENAL DIET
--- NOTE | 2020-07-25 13:24 | Nephrology Progress Note ---
Assessment/Plan Problem List: (1) ESRD (end stage renal disease) on dialysis (2) Hyperkalemia (3) Altered mental status Assessment: Toxic metabolic encephalopathy (4) Substance abuse Assessment Acute toxic metabolic encephalopathy Rule out CVA Rule out seizure ESRD on hemodialysis History of hypertension History of polysubstance abuse including cocaine Plan July 25: Patient was dialyzed yesterday. Patient will be dialyzed again today. Serum potassium 5.9. Patient started on renal diet after he was cleared by speech therapist. Discussed with RN. Continue to keep blood pressure in check. Continue per consultants. Previously July 24: From renal standpoint of view I ordered urgent dialysis treatment Meanwhile we will keep the patient n.p.o. Neuro eval DEE Keep the blood pressure in check with IV Vasotec Discussed with RN Continue per consultants Subjective ROS Limited/Unobtainable: No Constitutional: Reports: malaise Objective Objective Last 24 Hour Vital Signs Date Time Temp Pulse Resp B/P (MAP) Pulse Ox O2 Delivery O2 Flow Rate FiO2 07/25/20 12:00 96.6 78 19 135/93 (107) 96 07/25/20 09:00 Nasal Cannula 2.0 07/25/20 08:00 90 07/25/20 08:00 98.1 87 20 137/79 (98) 97 07/25/20 04:00 90 07/25/20 04:00 98.1 81 21 109/80 (90) 100 07/25/20 00:00 96.7 84 25 133/78 (96) 100 07/25/20 00:00 107 07/24/20 21:00 Nasal Cannula 2.0 07/24/20 20:00 97.6 92 18 134/82 (99) 93 07/24/20 20:00 105 07/24/20 16:00 82 07/24/20 16:00 98.1 81 20 109/80 (90) 100 Intake and Output 07/24/20 07/25/20 19:00 07:00 Intake Total 0 ml Balance 0 ml Intake Oral 0 ml Laboratory Tests 07/24/20 16:43: POC Whole Blood Glucose 112H 07/25/20 05:10: White Blood Count 6.7, Red Blood Count 4.70, Hemoglobin 15.3, Hematocrit 44.6, Mean Corpuscular Volume 95, Mean Corpuscular Hemoglobin 32.5H, Mean Corpuscular Hemoglobin Concent 34.2, Red Cell Distribution Width 16.4H, Platelet Count 217, Mean Platelet Volume 6.0L, Neutrophils (%) (Auto) 65.8, Lymphocytes (%) (Auto) 2 0.5, Monocytes (%) (Auto) 7.5, Eosinophils (%) (Auto) 4.8H, Basophils (%) (Auto) 1.3, Sodium Level 133L, Potassium Level 5.9H, Chloride Level 93L, Carbon Dioxide Level 26, Anion Gap 14, Blood Urea Nitrogen 39H, Creatinine 12.8H, Estimat Glomerular Filtration Rate 4.8, Glucose Level 87, Calcium Level 8.8, Troponin I 0.033, Pro-B-Type Natriuretic Peptide [id number] Height (Feet): 6 Height (Inches): 0.00 Weight (Pounds): 180 General Appearance: no apparent distress, lethargic, confused Cardiovascular: normal rate Respiratory/Chest: decreased breath sounds Abdomen: soft Martín Huff MD Jul 25, 2020 13:24
--- NOTE | 2020-07-25 13:53 | NUR ---
INSURANCE CLINICALS/REVIEW FAXED TO [facility] [phone] PH [phone]
--- NOTE | 2020-07-25 13:54 | NUR ---
NURSE NOTES: Patient had a episode for Sinus Tachycardia, pt HR went up to 122. Called Dr Delvalle to let him know. Waiting for a call back.
--- NOTE | 2020-07-25 14:45 | NUR ---
BRAZING MACHINE OPERATOR AUTOMATIC NOTE SW attempted to meet w/ pt to discuss substance abuse issue. However, pt opens his eyes but non-verbal. He does not appear to hold a meaningful communication w/ this SW. SW will attempt when pt is able to discuss.
[2020-07-25] MEDS: Docusate 100mg cap ORAL SCH (18:00)
--- NOTE | 2020-07-25 18:40 | Diagnostic Imaging Report ---
EXAM: XR Abdomen, 2 Views CLINICAL HISTORY: SCREEN TECHNIQUE: Frontal view of the abdomen/pelvis with upright view of the abdomen. COMPARISON: No relevant prior studies available. FINDINGS: Intraperitoneal space: See below. Gastrointestinal tract: Nonobstructive bowel gas pattern. No pneumatosis or free air. Bones/joints: Unremarkable. Soft tissues: Presumed surgical clips and possible metallic densities seen within the abdomen and pelvis. IMPRESSION: Nonobstructive bowel gas pattern.
--- NOTE | 2020-07-25 18:46 | NUR ---
NURSE NOTES: Notified Dr Delvalle regarding Pt HR went up to 140, BP 103/87. Pt just had dialysis, he is very drowsy but responded to sternum rub. Waiting for a call back.
--- NOTE | 2020-07-25 19:36 | NUR ---
NURSE HAND-OFF REPORT: Important Events on Shift:Pt lethargic, elevated HR Patient Status: Stable Diet: Renal soft easy chew Pending Orders: EEG, MRI brain Pending Results/Labs:CBC, CMP Pending MD notification: Latest Vital Signs: Temperature 98.1 , Pulse 140 , B/P 103 /87 , Respiratory Rate 20 , O2 SAT 97 , Nasal Cannula, O2 Flow Rate 2.0 . Vital Sign Comment: EKG Rhythm: Sinus Tachycardia Rhythm change?: N MD Notified?: Y -Dr Mook WARREN Response: Message left await call Latest Lott Fall Score: 45 Fall Risk: High Risk Safety Measures: Call light Within Reach, Bed Alarm Zone 1, Side Rails Side Rails x3, Bed position Low and Locked. Fall Precautions: Yellow Socks Yellow Gown Door Sign Patient Fall Education Report given to Preston/RN.
--- NOTE | 2020-07-25 19:44 | NUR ---
NURSE NOTES: Report received from Johanna RIVERS. Patient is noted to be awake and alert x 1. Was endorsed to Preston RIVERS that this has been the patients baseline since arrival to hospital. Patient is noted to be on 2 liters of oxygen via nasal canula, with an oxygen saturation of 94 %. Patient is noted to be in sinus tachycardia with a heart rate of 115 beats per minute, and a blood pressure of 93/72. Was endorsed that patient had dialysis that ended at approximately 1800 where 2 liters was removed. Patient has spontaneous eye opening and appears to be asymptomatic. Preston RIVERS paged Doctor Amaro regarding this matter, awaiting to hear back. Charge Nurse Magnolia is aware. Patient is noted to have right EJ IV access with fluids running per MD orders. Was endorsed to Preston RIVERS that patient has MRI ordered but was not obtained today due to dialysis. Bed is locked, alarmed, and in lowest position. Will continue to follow plan of care.
--- NOTE | 2020-07-25 21:19 | NUR ---
NURSE NOTES: Still no call back from Doctor Mook. Patient now has a blood pressure of 88/63 with a heart rate of 94 BPM. Patient still awake and alert x 1. Patient asymptomatic. Charge Nurse Magnolia aware. Primary MD Doctor Bryce paged regarding patient's current vital signs. Awaiting call back.
--- NOTE | 2020-07-25 21:32 | NUR ---
NURSE NOTES: Preston RIVERS encourage oral fluids with medication. Patient able to drink 240 cc of water. Declined to continue to drink. Patient declined to eat at this time.
--- NOTE | 2020-07-25 21:47 | NUR ---
NURSE NOTES: Doctor Bryce is aware and will attempt to contact Doctor Mook. No new orders.
--- NOTE | 2020-07-25 22:30 | NUR ---
NURSE NOTES: Patient is currently awake and alert x 1. Patient currently has a blood pressure of 95/66 with a heart rate of 93 beats per minute. When asked denies chest pain and dizziness. Patient appears to be asymptomatic. Charge Nurse Magnolia aware, and Hydraulic Oil Tool Operator aware. Preston RIVRES was informed by both Magnolia RN and Hydraulic Oil Tool Operator to continue to monitor the patient.
--- NOTE | 2020-07-25 23:30 | NUR ---
NURSE NOTES: Patient is awake and alert x 1 watching TV sitting in semi key position in bed. Blood pressure currently 95/67 with a heart rate of 93 beats per minute. When asked patient denies chest pain, shortness of breath, and dizziness. Patient appears to be asymptomatic. Charge Nurse Magnolia aware will continue to monitor patient.
[2020-07-26] VITALS (7 sets, daily range): BP systolic 97–127; BP diastolic 65–79
--- NOTE | 2020-07-26 00:23 | NUR ---
NURSE NOTES: Patient has no complaints at this time. Awake and alert x 1. Does not appear to be in respiratory distress and is currently on 2 L of oxygen via nasal canula.
--- NOTE | 2020-07-26 01:35 | NUR ---
NURSE NOTES: Patient is found to be more awake, alert, and talkative since beginning of shift. Patient is awake and alert x 1, follows simple commands, but is forgetful. Patient required education to keep oxygen on. Patient blood pressure is 122/72 with a heart rate of 93 BPM.
--- NOTE | 2020-07-26 04:36 | NUR ---
NURSE NOTES: Bed alarm going off. Patient found to be sitting at edge of bed with patient gown off and regional geodetic advisor removed. Preston RIVERS came to bed side to assess the patient. The patient informed Preston RIVERS that he wants to go home. Preston RIVERS educated the patient that at this time he can not leave the hospital and safely placed patient back in bed. Preston RIVERS provided reality orientation for the patient. Patient is aware who he is, where he is, can make needs known, and follow simple commands. Preston RIVERS educated the patient the importance of keeping the regional geodetic advisor on and using the call light prior to getting up. Unclear if patient understood. Patient appears to be forgetful as he kept on stating to Preston RIVERS that he wanted to go home despite Preston RN reminding him he could no go home at this time. Preston RN offered food and a drink, patient declined at this time. Patient declined to have the TV on at this time. Patient placed back on regional geodetic advisor, call light in reach, bed locked, alarmed, and in lowest position. Preston RIVERS made certified nursing attendant aware that patient is awake and trying to get up and that he is a high fall risk.
--- NOTE | 2020-07-26 07:19 | NUR ---
NURSE HAND-OFF REPORT: Important Events on Shift: patient received dialysis yesterday for second day in a row due to high potassium laboratory values. patient was tachycardic throughout the shift and was hypotensive. Patient was asymptomatic. Doctor Linda are aware. Patient is currently in stable condition asleep in bed. Patient Status: full code Diet: Renal Pending Orders: none Pending Results/Labs:none Pending MD notification:none Latest Vital Signs: Temperature 98.1 , Pulse 101 , B/P 97 /69 , Respiratory Rate 22 , O2 SAT 96 , Nasal Cannula, O2 Flow Rate 2.0 . Vital Sign Comment: Doctor Delvalle aware of tachycardia and hypotension. EKG Rhythm: Sinus Tachycardia Rhythm change?: N MD Notified?: n MD Response: Latest Lott Fall Score: 35 Fall Risk: Medium Risk Safety Measures: Call light Within Reach, Bed Alarm Zone 1, Side Rails Side Rails x3, Bed position Low and Locked. Fall Precautions: Yellow Socks Yellow Gown Door Sign Patient Fall Education Report given to Yanira RIVERS.
--- NOTE | 2020-07-26 07:20 | NUR ---
NURSE NOTES: Received report from Preston/RN, Observed patient awake, eating breakfast in bed, On 2L nasal canula, no acute distress/SOB noted. Iv site patent and intact. Bed in low position and locked, Call light within reach. Encouraged to use call light when needed. Bed alarm is on, side rails up x3. Will continue plan of care.
--- NOTE | 2020-07-26 07:50 | General Progress Note ---
Subjective Constitutional: Reports: weakness Allergies: Coded Allergies: No Known Allergies (Unverified , 07/24/18) All Systems: reviewed and negative except above Subjective calm in room sleepy Objective Last 24 Hour Vital Signs Date Time Temp Pulse Resp B/P (MAP) Pulse Ox O2 Delivery O2 Flow Rate FiO2 07/26/20 04:00 101 07/26/20 04:00 98.1 99 22 97/69 (78) 96 07/26/20 01:34 90 22 122/72 (89) 92 07/26/20 00:22 96.3 93 22 99/67 (78) 93 07/26/20 00:00 103 07/25/20 23:30 93 20 95/67 (76) 93 07/25/20 22:30 93 21 95/66 (76) 96 07/25/20 22:10 74 22 90/62 (71) 93 07/25/20 22:00 90 20 85/61 (69) 95 07/25/20 21:19 94 20 88/63 (71) 94 07/25/20 21:00 Nasal Cannula 2.0 07/25/20 20:00 97.9 103 22 93/72 (79) 95 07/25/20 20:00 105 07/25/20 18:00 140 103/87 (92) 97 07/25/20 16:00 98.1 61 20 130/61 (84) 96 07/25/20 16:00 117 07/25/20 15:39 96 19 135/93 96 07/25/20 15:09 96 19 135/93 96 07/25/20 13:02 122 07/25/20 12:00 96.6 78 19 135/93 (107) 96 07/25/20 12:00 92 07/25/20 09:00 Nasal Cannula 2.0 07/25/20 08:00 90 07/25/20 08:00 98.1 87 20 137/79 (98) 97 Intake and Output 07/25/20 07/26/20 19:00 07:00 Intake Total 170 ml 800 ml Output Total 3200 ml Balance -3030 ml 800 ml Intake Oral 120 ml 600 ml IV Total 50 ml 200 ml Output Urine Total 1200 ml Hemodialysis UF 2000 ml # Voids 3 Laboratory Tests 07/25/20 15:25: Ammonia 20, Vitamin B12 Level 907, Methylmalonic Acid [Pending], Rapid Plasma Reagin Non reactive, Treponema pallidum Ab (FTA-ABS) [Pending] Height (Feet): 6 Height (Inches): 0.00 Weight (Pounds): 180 General Appearance: lethargic EENT: normal ENT inspection Neck: normal alignment Cardiovascular: normal peripheral pulses, normal rate, regular rhythm Respiratory/Chest: chest wall non-tender, lungs clear, normal breath sounds Abdomen: normal bowel sounds, non tender, soft Extremities: normal inspection Edema: no edema noted Arm (L), no edema noted Arm (R), no edema noted Leg (L), no edema noted Leg (R), no edema noted Pedal (L), no edema noted Pedal (R), no edema noted Generalized Neurologic: motor weakness Skin: normal pigmentation, warm/dry Assessment/Plan Problem List: (1) AMS (altered mental status) ICD Codes: R41.82 - Altered mental status, unspecified SNOMED: 631693234 (2) Weak ICD Codes: R53.1 - Weakness SNOMED: 03675498 (3) Anemia ICD Codes: D64.9 - Anemia SNOMED: 815347397 (4) ESRD (end stage renal disease) on dialysis ICD Codes: N18.6 - ESRD (end stage renal disease) on dialysis; Z99.2 - Dependen ce on renal dialysis SNOMED: 827386670 (5) HTN (hypertension) ICD Codes: I10 - HTN (hypertension) SNOMED: 76031699 (6) ACS (acute coronary syndrome) ICD Codes: I24.9 - Acute ischemic heart disease, unspecified SNOMED: 454066751 Status: unchanged Assessment/Plan: pt diet bp bs control neuro f/u dialysis cbc bmp in am Dheeraj Madden DO Jul 26, 2020 07:50
--- NOTE | 2020-07-26 08:26 | NUR ---
CASE MANAGEMENT:REVIEW 07/26/20 SI: AMS. ANEMIA. ACS ESRD ON HD 98.1 101 22 97/69 96% ON 2L/NC LABS PENDING AT THIS TIME IS: PROTONIX PO Q12 RENVELA PO TID COLACE PO TID IV ATIVAN Q4HRS PRN RESTLESSNESS GEODON PO BID : TELEMETRY STATUS DCP: PATIENT HAS BEEN REFERRED TO ARU NOTE: PRIOR TO ADMISSION PATIENT WAS FULLY INDEPENDENT AND DROVE HIMSELF TO AND FROM DIALYSIS. NOW PATIENT OPENS EYES BUT DOES NOT SPEAK OT AND PT EVALUATION PENDING FOR REFERRAL TO [facility]
[2020-07-26 08:39] LABS: EOSINOPHILS % (AUTO) 5.1 % (0.0-3.0); HEMATOCRIT 42.3 % (42.0-52.0); HEMOGLOBIN 14.7 G/DL (14.2-18.0); LYMPHOCYTES % (AUTO) 20.1 % (20.0-45.0); MEAN CORPUSCULAR VOLUME 94 FL (80-99); MONOCYTES % (AUTO) 10.1 % (1.0-10.0); NEUTROPHILS % (AUTO) 63.7 % (45.0-75.0); PLATELET COUNT 310 K/UL (150-450); RED CELL DISTRIBUTION WIDTH 16.2 % (11.6-14.8); WHITE BLOOD COUNT 6.5 K/UL (4.8-10.8)
[2020-07-26 09:17] LABS: ALANINE AMINOTRANSFERASE 25 U/L (12-78); ALBUMIN 4.1 G/DL (3.4-5.0); ALKALINE PHOSPHATASE 159 U/L (46-116); ANION GAP 13 mmol/L (5-15); ASPARTATE AMINO TRANSFERASE 31 U/L (15-37); BILIRUBIN,TOTAL 0.8 MG/DL (0.2-1.0); BLOOD UREA NITROGEN 29 mg/dL (7-18); CALCIUM 8.7 MG/DL (8.5-10.1); CARBON DIOXIDE 24 MMOL/L (21-32); CHLORIDE 94 MMOL/L (98-107); CREATININE 10.6 MG/DL (0.55-1.30); GAMMA GLUTAMYL TRANSPEPTIDASE 48 U/L (5-85); PHOSPHORUS 5.7 MG/DL (2.5-4.9); POTASSIUM 4.7 MMOL/L (3.5-5.1); SODIUM 131 MMOL/L (136-145)
[2020-07-26] MEDS: Docusate 100mg cap ORAL SCH ×3 (09:39→17:40)
[2020-07-26] MEDS: Ziprasidone 20mg cap ORAL SCH ×2 (09:39→17:40)
--- NOTE | 2020-07-26 10:11 | Pulmonology Progress Note ---
Subjective ROS Limited/Unobtainable: No Interval Events: None new Constitutional: Reports: no symptoms HEENT: Repors: no symptoms Respiratory: Reports: dry cough, shortness of breath Cardiovascular: Reports: no symptoms Gastrointestinal/Abdominal: Reports: no symptoms Genitourinary: Reports: no symptoms Allergies: Coded Allergies: No Known Allergies (Unverified , 07/24/18) All Systems: reviewed and negative except above Subjective coverage for Dr. Caal care noted Objective Last 24 Hour Vital Signs Date Time Temp Pulse Resp B/P (MAP) Pulse Ox O2 Delivery O2 Flow Rate FiO2 07/26/20 08:00 97.4 95 20 117/71 (86) 97 07/26/20 04:00 101 07/26/20 04:00 98.1 99 22 97/69 (78) 96 07/26/20 01:34 90 22 122/72 (89) 92 07/26/20 00:22 96.3 93 22 99/67 (78) 93 07/26/20 00:00 103 07/25/20 23:30 93 20 95/67 (76) 93 07/25/20 22:30 93 21 95/66 (76) 96 07/25/20 22:10 74 22 90/62 (71) 93 07/25/20 22:00 90 20 85/61 (69) 95 07/25/20 21:19 94 20 88/63 (71) 94 07/25/20 21:00 Nasal Cannula 2.0 07/25/20 20:00 97.9 103 22 93/72 (79) 95 07/25/20 20:00 105 07/25/20 18:00 140 103/87 (92) 97 07/25/20 16:00 98.1 61 20 130/61 (84) 96 07/25/20 16:00 117 07/25/20 15:39 96 19 135/93 96 07/25/20 15:09 96 19 135/93 96 07/25/20 13:02 122 07/25/20 12:00 96.6 78 19 135/93 (107) 96 07/25/20 12:00 92 Intake and Output 07/25/20 07/26/20 19:00 07:00 Intake Total 170 ml 800 ml Output Total 3200 ml Balance -3030 ml 800 ml Intake Oral 120 ml 600 ml IV Total 50 ml 200 ml Output Urine Total 1200 ml Hemodialysis UF 2000 ml # Voids 3 General Appearance: WD/WN HEENT: normocephalic Respiratory: chest wall non-tender, decreased breath sounds Cardiovascular: normal peripheral pulses Abdomen: normal bowel sounds Extremities: no cyanosis Microbiology Date/Time Source Procedure Growth Status 07/25/20 13:16 Nasopharynx SARS-CoV-2 RdRp Gene Assay - Final Complete 07/23/20 23:30 Rectum - Final NO CARBAPENEM-RESISTANT ENTEROBACTERI... Complete 07/23/20 23:30 Rectum VRE Culture - Final NO VANCOMYCIN RESISTANT ENTEROCOCCUS ... Complete 07/23/20 23:30 Nasal Nares MRSA Culture - Final NO METHICILLIN RESISTANT STAPH AUREUS... Complete Laboratory Tests 07/25/20 15:25: Ammonia 20, Vitamin B12 Level 907, Methylmalonic Acid [Pending], Rapid Plasma Reagin Non reactive, Treponema pallidum Ab (FTA-ABS) [Pending] 07/26/20 06:30: White Blood Count 6.5, Red Blood Count 4.50L, Hemoglobin 14.7, Hematocrit 42.3, Mean Corpuscular Volume 94, Mean Corpuscular Hemoglobin 32.5H, Mean Corpuscular Hemoglobin Concent 34.6, Red Cell Distribution Width 16.2H, Platelet Count 310, Mean Platelet Volume 6.0L, Neutrophils (%) (Auto) 63.7, Lymphocytes (%) (Auto) 20.1, Monocytes (%) (Auto) 10.1H, Eosinophils (%) (Auto) 5.1H, Basophils (%) (Auto) 1.0, Sodium Level 131L, Potassium Level 4.7, Chloride Level 94L, Carbon Dioxide Level 24, Anion Gap 13, Blood Urea Nitrogen 29H, Creatinine 10.6H, Estimat Glomerular Filtration Rate 6.1, Glucose Level 88, Uric Acid 2.9, Calcium Level 8.7, Phosphorus Level 5.7H, Magnesium Level 2.3, Total Bilirubin 0.8, Gamma Glutamyl Transpeptidase 48, Aspartate Amino Transf (AST/SGOT) 31, Alanine Aminotransferase (ALT/SGPT) 25, Alkaline Phosphatase 159H, C-Reactive Protein, Quantitative < 0.4, Total Protein 8.1, Albumin 4.1, Globulin 4.0, Albumin/Globulin Ratio 1.0 Current Medications Medications (Trade) Dose Ordered Sig/Jerman Route PRN Reason Start Time Stop Time Status Last Admin Dose Admin Barium Sulfate (Varibar Honey) 250 ml NOW PRN RAD 07/24/20 10:30 07/27/20 10:24 Barium Sulfate (Varibar Bowen) 240 ml NOW PRN RAD 07/24/20 10:30 07/27/20 10:24 Barium Sulfate (Varibar Pudding) 230 ml NOW PRN RAD 07/24/20 10:30 07/27/20 10:24 Barium Sulfate (Varibar Thin Liquid powder) 148 gm NOW PRN RAD 07/24/20 10:30 07/27/20 10:24 Docusate Sodium (Colace) 100 mg THREE TIMES A DAY ORAL 07/25/20 18:00 08/24/20 17:59 07/26/20 09:39 Enalaprilat (Vasotec) 2.5 mg Q6H PRN IV bp over 160 syst 07/24/20 09:15 08/23/20 09:14 Lorazepam (Ativan 2mg/ml 1ml) 1 mg Q4H PRN IV Restlessness 07/24/20 23:45 07/31/20 23:44 07/25/20 15:09 Pantoprazole (Protonix) 40 mg EVERY 12 HOURS ORAL 07/25/20 21:00 08/24/20 20:59 07/26/20 09:40 Sevelamer Carbonate (Renvela) 800 mg THREE TIMES A DAY ORAL 07/25/20 18:00 10/23/20 17:59 07/26/20 09:39 Ziprasidone (Geodon) 20 mg TWICE A DAY ORAL 07/24/20 18:00 09/07/20 17:59 07/26/20 09:39 Assessment/Plan Assessment/Plan ASSESSMENT AND PLAN: 1. Volume overload 2. Hypertension. 3. Chronic encephalopathy 4. Hyperkalemia 5. Diabetes. 6. Noncompliance. 7. Polysubstance abuse. PLAN care as is monitor fluid status monitor oxygen care impression, plan, and exam edited and reviewed in detail care discussed with Reggie Parra MD Jul 26, 2020 10:11
--- NOTE | 2020-07-26 11:56 | Nephrology Progress Note ---
Assessment/Plan Problem List: (1) ESRD (end stage renal disease) on dialysis (2) Hyperkalemia (3) Altered mental status Assessment: Toxic metabolic encephalopathy (4) Substance abuse Assessment Acute toxic metabolic encephalopathy Rule out CVA Rule out seizure ESRD on hemodialysis History of hypertension History of polysubstance abuse including cocaine Plan July 26: Patient was dialyzed twice July 24 and July 25. Labs reviewed. Medication list reviewed. Will attempt dialysis again tomorrow. C ontinue per consultants. July 25: Patient was dialyzed yesterday. Patient will be dialyzed again today. Serum potassium 5.9. Patient started on renal diet after he was cleared by speech therapist. Discussed with RN. Continue to keep blood pressure in check. Continue per consultants. Previously July 24: From renal standpoint of view I ordered urgent dialysis treatment Meanwhile we will keep the patient n.p.o. Neuro eval DEE Keep the blood pressure in check with IV Vasotec Discussed with RN Continue per consultants Subjective ROS Limited/Unobtainable: No Constitutional: Reports: malaise Objective Objective Last 24 Hour Vital Signs Date Time Temp Pulse Resp B/P (MAP) Pulse Ox O2 Delivery O2 Flow Rate FiO2 07/26/20 08:00 97.4 95 20 117/71 (86) 97 07/26/20 04:00 101 07/26/20 04:00 98.1 99 22 97/69 (78) 96 07/26/20 01:34 90 22 122/72 (89) 92 07/26/20 00:22 96.3 93 22 99/67 (78) 93 07/26/20 00:00 103 07/25/20 23:30 93 20 95/67 (76) 93 07/25/20 22:30 93 21 95/66 (76) 96 07/25/20 22:10 74 22 90/62 (71) 93 07/25/20 22:00 90 20 85/61 (69) 95 07/25/20 21:19 94 20 88/63 (71) 94 07/25/20 21:00 Nasal Cannula 2.0 07/25/20 20:00 97.9 103 22 93/72 (79) 95 07/25/20 20:00 105 07/25/20 18:00 140 103/87 (92) 97 07/25/20 16:00 98.1 61 20 130/61 (84) 96 07/25/20 16:00 117 07/25/20 15:39 96 19 135/93 96 07/25/20 15:09 96 19 135/93 96 07/25/20 13:02 122 07/25/20 12:00 96.6 78 19 135/93 (107) 96 07/25/20 12:00 92 Intake and Output 07/25/20 07/26/20 19:00 07:00 Intake Total 170 ml 800 ml Output Total 3200 ml Balance -3030 ml 800 ml Intake Oral 120 ml 600 ml IV Total 50 ml 200 ml Output Urine Total 1200 ml Hemodialysis UF 2000 ml # Voids 3 Laboratory Tests 07/25/20 15:25: Ammonia 20, Vitamin B12 Level 907, Methylmalonic Acid [Pending], Rapid Plasma Reagin Non reactive, Treponema pallidum Ab (FTA-ABS) [Pending] 07/26/20 06:30: White Blood Count 6.5, Red Blood Count 4.50L, Hemoglobin 14.7, Hematocrit 42.3, Mean Corpuscular Volume 94, Mean Corpuscular Hemoglobin 32.5H, Mean Corpuscular Hemoglobin Concent 34.6, Red Cell Distribution Width 16.2H, Platelet Count 310, Mean Platelet Volume 6.0L, Neutrophils (%) (Auto) 63.7, Lymphocytes (%) (Auto) 20.1, Monocytes (%) (Auto) 10.1H, Eosinophils (%) (Auto) 5.1H, Basophils (%) (Auto) 1.0, Sodium Level 131L, Potassium Level 4.7, Chloride Level 94L, Carbon Dioxide Level 24, Anion Gap 13, Blood Urea Nitrogen 29H, Creatinine 10.6H, Estimat Glomerular Filtration Rate 6.1, Glucose Level 88, Uric Acid 2.9, Calcium Level 8.7, Phosphorus Level 5.7H, Magnesium Level 2.3, Total Bilirubin 0.8, Gamma Glutamyl Transpeptidase 48, Aspartate Amino Transf (AST/SGOT) 31, Alanine Aminotransferase (ALT/SGPT) 25, Alkaline Phosphatase 159H, C-Reactive Protein, Quantitative < 0.4, Total Protein 8.1, Albumin 4.1, Globulin 4.0, Albumin/Globulin Ratio 1.0 Height (Feet): 6 Height (Inches): 0.00 Weight (Pounds): 180 General Appearance: no apparent distress, other - More responsive Cardiovascular: normal rate Respiratory/Chest: decreased breath sounds Abdomen: soft Martín Huff MD Jul 26, 2020 11:56
--- NOTE | 2020-07-26 12:47 | Psychiatry Consultation ---
Psychiatry Consultation Psychiatry Consultation Chief Complaint: Altered Mental Status History of Present Illness: 59-year-old male patient ultimately says confuse disorganized is got some mood lability confusion disorganized thought process declining cognition plus baseline Mental status examination: 59-year-old male. History of right ear device and affect allergic to intellect poor mood depressed anxious moderately distractible incisional judgment poor orientation x2 speech is pressured thought process disorganized logical insight judgment is poor Allergies: Coded Allergies: No Known Allergies (Unverified , 07/24/18) Medication History Scheduled Cinacalcet* (Sensipar*), 30 MG ORAL DAILY, (Reported) Clonidine HCl (Clonidine HCl), 0.3 MG PO DAILY, (Reported) Esomeprazole Magnesium (Nexium), 40 MG ORAL DAILY, (Reported) Esomeprazole Magnesium (Nexium), 40 MG ORAL DAILY, (Reported) Metoprolol Tartrate* (Metoprolol Tartrate*), 50 MG ORAL DAILY, (Reported) Mv-Mn/Iron/Fa/Herbal Cmplx#190 (Vitamin D3 Complete Caplet), 1 EACH PO DAILY, (Reported) Nifedipine Er* (Adalat Cc*), 30 MG ORAL BID, (Reported) Nifedipine Xl* (Procardia Xl*), 30 MG ORAL DAILY, (Reported) Sevelamer HCl (Renagel), 800 MG ORAL THREE TIMES A DAY, (Reported) Vitamin B Complex (B Complex), 1 TAB ORAL DAILY, (Reported) Scheduled PRN Clonidine Hcl* (Catapres*), 0.1 MG ORAL EVERY 6 HOURS PRN for DIALYSIS, (Reported) Diphenhydramine Hcl* (Diphenhydramine Hcl*), 50 MG ORAL Q6H PRN for DIALYSIS, (Reported) OXYCODONE HCl* (Roxicodone*), 30 MG ORAL Q3HR PRN for For Pain, (Reported) Miscellaneous Medications [meoprolol], (Reported) Discontinued Medications Azithromycin* (Zithromax*), 250 MG ORAL DAILY Discontinued Reason: Pt stopped taking med Objective Data Height (Feet): 6 Height (Inches): 0.00 Weight (Pounds): 180 Assessment/Plan Assessment/Plan: Treat this patient with admitted regimen of Geodon 20 mg twice a day help stabilize his mood and provided with 20 minutes of cognitive behavioral therapy will help monitor approximately helpful for his negative thoughts to conmvert to more positive thoughts to persist living dose of July 26 revealed this definitely seems less depressed affect Jg Mccarthy MD Jul 26, 2020 12:47
--- NOTE | 2020-07-26 15:21 | Cardiac Electrophysiology PN ---
Assessment/Plan Assessment/Plan 1. Volume overload with BNP of more than 30,000. Had HD yesterday the day before yesterday by Dr. Huff. It is of note the patient's troponins are both negative. EF 60% Another HD pending tomorrow 2. Hypertension. On HD. IV Vasotec p.r.n. DCed 3. Altered mental status. Head CT was negative for intracranial process. Neurology evaluation is pending. Likely metabolic. Better after HD 4. Hyperkalemia in a patient with renal failure. 5. Diabetes. 6. Noncompliance. 7. Polysubstance abuse. DW Dr. Huff Subjective Subjective More alert after 2 consecutive day HD. Scheduled for another HD tomorrow. Objective Last 24 Hour Vital Signs Date Time Temp Pulse Resp B/P (MAP) Pulse Ox O2 Delivery O2 Flow Rate FiO2 07/26/20 12:00 98.0 107 20 105/65 (78) 96 07/26/20 12:00 107 07/26/20 09:00 Nasal Cannula 2.0 07/26/20 08:00 97.4 95 20 117/71 (86) 97 07/26/20 08:00 96 07/26/20 04:00 101 07/26/20 04:00 98.1 99 22 97/69 (78) 96 07/26/20 01:34 90 22 122/72 (89) 92 07/26/20 00:22 96.3 93 22 99/67 (78) 93 07/26/20 00:00 103 07/25/20 23:30 93 20 95/67 (76) 93 07/25/20 22:30 93 21 95/66 (76) 96 07/25/20 22:10 74 22 90/62 (71) 93 07/25/20 22:00 90 20 85/61 (69) 95 07/25/20 21:19 94 20 88/63 (71) 94 07/25/20 21:00 Nasal Cannula 2.0 07/25/20 20:00 97.9 103 22 93/72 (79) 95 07/25/20 20:00 105 07/25/20 18:00 140 103/87 (92) 97 07/25/20 16:00 98.1 61 20 130/61 (84) 96 07/25/20 16:00 117 07/25/20 15:39 96 19 135/93 96 Intake and Output 07/25/20 07/26/20 19:00 07:00 Intake Total 170 ml 800 ml Output Total 3200 ml Balance -3030 ml 800 ml Intake Oral 120 ml 600 ml IV Total 50 ml 200 ml Output Urine Total 1200 ml Hemodialysis UF 2000 ml # Voids 3 Laboratory Tests Test 07/25/20 15:25 07/26/20 06:30 Ammonia 20 umol/L (11-32) Vitamin B12 Level 907 PG/ML (193-986) Methylmalonic Acid Pending Rapid Plasma Reagin Non reactive (Non Reactive) Treponema pallidum Ab (FTA-ABS) Pending White Blood Count 6.5 K/UL (4.8-10.8) Red Blood Count 4.50 M/UL (4.70-6.10) L Hemoglobin 14.7 G/DL (14.2-18.0) Hematocrit 42.3 % (42.0-52.0) Mean Corpuscular Volume 94 FL (80-99) Mean Corpuscular Hemoglobin 32.5 PG (27.0-31.0) H Mean Corpuscular Hemoglobin Concent 34.6 G/DL (32.0-36.0) Red Cell Distribution Width 16.2 % (11.6-14.8) H Platelet Count 310 K/UL (150-450) Mean Platelet Volume 6.0 FL (6.5-10.1) L Neutrophils (%) (Auto) 63.7 % (45.0-75.0) Lymphocytes (%) (Auto) 20.1 % (20.0-45.0) Monocytes (%) (Auto) 10.1 % (1.0-10.0) H Eosinophils (%) (Auto) 5.1 % (0.0-3.0) H Basophils (%) (Auto) 1.0 % (0.0-2.0) Sodium Level 131 MMOL/L (136-145) L Potassium Level 4.7 MMOL/L (3.5-5.1) Chloride Level 94 MMOL/L (98-107) L Carbon Dioxide Level 24 MMOL/L (21-32) Anion Gap 13 mmol/L (5-15) Blood Urea Nitrogen 29 mg/dL (7-18) H Creatinine 10.6 MG/DL (0.55-1.30) H Estimat Glomerular Filtration Rate 6.1 mL/min (>60) Glucose Level 88 MG/DL (74-106) Uric Acid 2.9 MG/DL (2.6-7.2) Calcium Level 8.7 MG/DL (8.5-10.1) Phosphorus Level 5.7 MG/DL (2.5-4.9) H Magnesium Level 2.3 MG/DL (1.8-2.4) Total Bilirubin 0.8 MG/DL (0.2-1.0) Gamma Glutamyl Transpeptidase 48 U/L (5-85) Aspartate Amino Transf (AST/SGOT) 31 U/L (15-37) Alanine Aminotransferase (ALT/SGPT) 25 U/L (12-78) Alkaline Phosphatase 159 U/L (46-116) H C-Reactive Protein, Quantitative < 0.4 mg/dL (0.00-0.90) Total Protein 8.1 G/DL (6.4-8.2) Albumin 4.1 G/DL (3.4-5.0) Globulin 4.0 g/dL Albumin/Globulin Ratio 1.0 (1.0-2.7) Microbiology Date/Time Source Procedure Growth Status 07/25/20 13:16 Nasopharynx SARS-CoV-2 RdRp Gene Assay - Final Complete 07/23/20 23:30 Rectum - Final NO CARBAPENEM-RESISTANT ENTEROBACTERI... Complete 07/23/20 23:30 Rectum VRE Culture - Final NO VANCOMYCIN RESISTANT ENTEROCOCCUS ... Complete 07/23/20 23:30 Nasal Nares MRSA Culture - Final NO METHICILLIN RESISTANT STAPH AUREUS... Complete Objective HEAD AND NECK: No JVD. LUNGS: Decreased breath sounds. CARDIOVASCULAR: Shows regular S1 and S2 with no gallop. ABDOMEN: Soft. EXTREMITIES: AV shunt in the left upper extremity. Tye Delvalle MD Jul 26, 2020 15:20
--- NOTE | 2020-07-26 16:15 | NUR ---
PT Note PT uche completed, treatment initiated. Patient has muscle weakness and decreased postural stability, making him at a risk for falls. Patient needs physical therapy to increase his muscle strength and balance to improve his safety in mobility and gait to enable him to return to PLOF. Addendum: 07/26/20 at 1615 by FELICE BENNETT PT Amended: Links added.
--- NOTE | 2020-07-26 19:15 | NUR ---
NURSE NOTES: Received patient from SILVESTRE Doyle. Patient awake, alert, and responsive. On 2L nasal cannula, saturating well. Breathing unlabored and even. No signs of shortness of breath or in acute distress. IV sites intact and flushed. Noted to have left upper arm shunt for HD. + bruit and thrills. Bed in lowest position, brakes engaged and bed alarm on. Bed rails raised x2. Call light placed within reach. Will continue to monitor.
--- NOTE | 2020-07-26 19:44 | NUR ---
NURSE HAND-OFF REPORT: Important Events on Shift: NA Patient Status: Unsteady Diet: Renal Pending Orders: HD Pending Results/Labs:Morning labs Pending MD notification:NA Latest Vital Signs: Temperature 97.9 , Pulse 133 , B/P 102 /73 , Respiratory Rate 20 , O2 SAT 95 , Nasal Cannula, O2 Flow Rate 2.0 . Vital Sign Comment: Stable EKG Rhythm: Sinus Tachycardia Rhythm change?: N MD Notified?: Y -Dr Mook WARREN Response: Message left await call Latest Lott Fall Score: 35 Fall Risk: Medium Risk Safety Measures: Call light Within Reach, Bed Alarm Zone 1, Side Rails Side Rails x3, Bed position Low and Locked. Fall Precautions: Yellow Socks Yellow Gown Door Sign Patient Fall Education Report given to Mitzi/SILVESTRE.
[2020-07-27] VITALS (9 sets, daily range): BP systolic 75–98; BP diastolic 44–56
--- NOTE | 2020-07-27 01:01 | NUR ---
NURSE NOTES: Called and left a message with Dr. padgett regarding patient's blood pressure: 84/56. Patient still able to answer verbally, no complaints of light headedness or dizziness. Currently, no IVF running. Legs slightly elevated to help increase SBP. Awaiting call back.
--- NOTE | 2020-07-27 03:30 | NUR ---
NURSE NOTES: Dr. Wu paged back to call Dr. Delvalle regarding patient's hypotension. Will reassess BP.
--- NOTE | 2020-07-27 03:44 | NUR ---
NURSE NOTES: Latest BP: 92/58. Still tachycardic. No complaints of pain or dizziness. Asymptomatic. Legs still elevated to increase BP. Will continue to monitor.
--- NOTE | 2020-07-27 04:00 | NUR ---
NURSE NOTES: Latest BP: 75/[address] Delvalle per Dr. Wu. Awaiting call back. Patient asymptomatic. No complaints of pain or discomfort at this time. Will continue to monitor closely.
--- NOTE | 2020-07-27 04:35 | NUR ---
NURSE NOTES: Called and left a message with Dr. Wu regarding patient's BP. latest BP: 85/54. Patient is asymptomatic. No complaints of pain or discomfort at this time. No lightheadedness or dizziness. Will continue to closely monitor.
--- NOTE | 2020-07-27 05:58 | NUR ---
NURSE NOTES: Still no call back from either MDs. Patient's latest BP: 97/57. Patient asleep and asymptomatic. Will continue to closely monitor.
--- NOTE | 2020-07-27 07:02 | NUR ---
NURSE NOTES: Another [address] Delvalle.
--- NOTE | 2020-07-27 07:06 | NUR ---
NURSE HAND-OFF REPORT: Important Events on Shift:[Hypotensive episodes during the shift. 250 NS bolus x1 hung during the shift. Received an order for another bolus during change of shift, per Dr. Delvalle. Orders entered] Patient Status: [FC] Diet: [Renal] Pending Orders: [] Pending Results/Labs:[] Pending MD notification:[] Latest Vital Signs: Temperature 97.5 , Pulse 110 , B/P 75 /44 , Respiratory Rate 20 , O2 SAT 98 , Nasal Cannula, O2 Flow Rate 2.0 . Vital Sign Comment: [] EKG Rhythm: ST w/ 1st AVB Rhythm change?: N MD Notified?: Y -Dr Mook WARREN Response: Message left await call Latest Lott Fall Score: 35 Fall Risk: Medium Risk Safety Measures: Call light Within Reach, Bed Alarm Zone 1, Side Rails Side Rails x3, Bed position Low and Locked. Fall Precautions: Yellow Socks Yellow Gown Door Sign Patient Fall Education Report given to [SILVESTRE Doyle].
[2020-07-27] MEDS ORDERED: NS 250 ML IVPB ONE ×2 (07:15)
--- NOTE | 2020-07-27 07:15 | NUR ---
NURSE NOTES: Received report from Mitzi/SILVESTRE, Observed patient awake, eating breakfast in bed. On room air, no acute distress/SOB noted. IV on right EJ, patent and intact. Per night nurse patient had an episode of hypotension, NS bolus given. Patient is asymptomatic. Bed in low position and locked, Call light within reach. Encouraged to use call light when needed. Bed alarm is on, side rails up x2. Will continue plan of care.
[2020-07-27] MEDS ORDERED: NS 275ml ONE (07:50)
--- NOTE | 2020-07-27 08:21 | NUR ---
CASE MANAGEMENT:REVIEW 07/27/20 SI: AMS. ANEMIA. ACS ESRD ON HD 97.5 114 20 75/44 98% ON 2L/NC IS: 250CC NS BOLUS PROTONIX PO Q12 RENVELA PO TID COLACE PO TID IV ATIVAN Q4HRS PRN RESTLESSNESS GEODON PO BID : TELEMETRY STATUS DCP: PATIENT HAS BEEN REFERRED TO [facility] NOTE: PRIOR TO ADMISSION PATIENT WAS FULLY INDEPENDENT AND DROVE HIMSELF TO AND FROM DIALYSIS. NOW PATIENT OPENS EYES BUT DOES NOT SPEAK OT AND PT EVALUATION PENDING FOR REFERRAL TO [facility]
[2020-07-27] MEDS: Midodrine 10mg tab ORAL SCH ×3 (08:48→17:33)
[2020-07-27] MEDS: Docusate 100mg cap ORAL SCH ×3 (08:48→17:30)
[2020-07-27] MEDS: Ziprasidone 20mg cap ORAL SCH ×2 (08:48→17:30)
--- NOTE | 2020-07-27 09:25 | Nephrology Progress Note ---
Assessment/Plan Problem List: (1) ESRD (end stage renal disease) on dialysis (2) Hyperkalemia (3) Altered mental status Assessment: Toxic metabolic encephalopathy (4) Substance abuse Assessment Acute toxic metabolic encephalopathy Rule out CVA Rule out seizure ESRD on hemodialysis History of hypertension History of polysubstance abuse including cocaine Plan July 27: Patient due for dialysis today. Blood pressure 75-85 systolic. Patient asymptomatic with low blood pressure. Will stop ultrafiltration during dialysis. IV boluses for low BP and Midodrin ordered. July 26: Patient was dialyzed twice July 24 and July 25. Labs reviewed. Medication list reviewed. Will attempt dialysis again tomorrow. Continue per consultants. July 25: Patient was dialyzed yesterday. Patient will be dialyzed again today. Serum potassium 5.9. Patient started on renal diet after he was cleared by speech therapist. Discussed with RN. Continue to keep blood pressure in check. Continue per consultants. Previously July 24: From renal standpoint of view I ordered urgent dialysis treatment Meanwhile we will keep the patient n.p.o. Neuro eval DEE Keep the blood pressure in check with IV Vasotec Discussed with RN Continue per consultants Subjective ROS Limited/Unobtainable: No Constitutional: Reports: malaise Objective Objective Last 24 Hour Vital Signs Date Time Temp Pulse Resp B/P (MAP) Pulse Ox O2 Delivery O2 Flow Rate FiO2 07/27/20 08:00 97.7 102 20 82/48 (59) 100 07/27/20 04:00 110 07/27/20 04:00 97.5 103 20 75/44 (54) 98 07/27/20 00:00 97.7 114 20 84/56 (65) 97 07/27/20 00:00 126 07/26/20 21:00 Nasal Cannula 2.0 07/26/20 20:00 97.6 122 20 127/79 (95) 95 07/26/20 20:00 108 07/26/20 16:00 97.9 129 20 102/73 (83) 95 07/26/20 16:00 133 07/26/20 12:00 98.0 107 20 105/65 (78) 96 07/26/20 12:00 107 Intake and Output 07/26/20 07/27/20 18:59 06:59 Intake Total 237 ml 210 ml Balance 237 ml 210 ml Intake Oral 237 ml 210 ml # Voids 2 # Bowel Movements 1 3 Laboratory Tests 07/27/20 08:35: White Blood Count [Pending], Red Blood Count [Pending], Hemoglobin [Pending], Hematocrit [Pending], Mean Corpuscular Volume [Pending], Mean Corpuscular Hemoglobin [Pending], Mean Corpuscular Hemoglobin Concent [Pending], Red Cell Distribution Width [Pending], Platelet Count [Pending], Mean Platelet Volume [Pending], Neutrophils (%) (Auto) [Pending], Lymphocytes (%) (Auto) [Pending], Monocytes (%) (Auto) [Pending], Eosinophils (%) (Auto) [Pending], Basophils (%) (Auto) [Pending], Sodium Level [Pending], Potassium Level [Pending], Chloride Level [Pending], Carbon Dioxide Level [Pending], Blood Urea Nitrogen [Pending], Creatinine [Pending], Estimat Glomerular Filtration Rate [Pending], Glucose Level [Pending], Calcium Level [Pending], Phosphorus Level [Pending], Magnesium Level [Pending], Total Bilirubin [Pending], Aspartate Amino Transf (AST/SGOT) [Pending], Alanine Aminotransferase (ALT/SGPT) [Pending], Alkaline Phosphatase [Pending], Total Protein [Pending], Albumin [Pending], Globulin [Pending] Height (Feet): 6 Height (Inches): 0.00 Weight (Pounds): 180 General Appearance: no apparent distress, other - More responsive Objective No change Martín Huff MD Jul 27, 2020 09:25
--- NOTE | 2020-07-27 09:26 | Pulmonology Progress Note ---
Subjective ROS Limited/Unobtainable: No Interval Events: None new Respiratory: Reports: dry cough, shortness of breath Cardiovascular: Denies: chest pain, palpitations, other Allergies: Coded Allergies: No Known Allergies (Unverified , 07/24/18) All Systems: reviewed and negative except above Subjective coverage for Dr. Caal care noted Objective Last 24 Hour Vital Signs Date Time Temp Pulse Resp B/P (MAP) Pulse Ox O2 Delivery O2 Flow Rate FiO2 07/27/20 08:00 97.7 102 20 82/48 (59) 100 07/27/20 04:00 110 07/27/20 04:00 97.5 103 20 75/44 (54) 98 07/27/20 00:00 97.7 114 20 84/56 (65) 97 07/27/20 00:00 126 07/26/20 21:00 Nasal Cannula 2.0 07/26/20 20:00 97.6 122 20 127/79 (95) 95 07/26/20 20:00 108 07/26/20 16:00 97.9 129 20 102/73 (83) 95 07/26/20 16:00 133 07/26/20 12:00 98.0 107 20 105/65 (78) 96 07/26/20 12:00 107 Intake and Output 07/26/20 07/27/20 19:00 07:00 Intake Total 237 ml 210 ml Balance 237 ml 210 ml Intake Oral 237 ml 210 ml # Voids 2 # Bowel Movements 1 3 General Appearance: WD/WN HEENT: normocephalic Respiratory: chest wall non-tender, lungs clear, decreased breath sounds Cardiovascular: normal peripheral pulses Abdomen: normal bowel sounds Extremities: no cyanosis Microbiology Date/Time Source Procedure Growth Status 07/25/20 13:16 Nasopharynx SARS-CoV-2 RdRp Gene Assay - Final Complete Laboratory Tests 07/27/20 08:35: White Blood Count [Pending], Red Blood Count [Pending], Hemoglobin [Pending], Hematocrit [Pending], Mean Corpuscular Volume [Pending], Mean Corpuscular Hemoglobin [Pending], Mean Corpuscular Hemoglobin Concent [Pending], Red Cell Distribution Width [Pending], Platelet Count [Pending], Mean Platelet Volume [Pending], Neutrophils (%) (Auto) [Pending], Lymphocytes (%) (Auto) [Pending], Monocytes (%) (Auto) [Pending], Eosinophils (%) (Auto) [Pending], Basophils (%) (Auto) [Pending], Sodium Level [Pending], Potassium Level [Pending], Chloride Level [Pending], Carbon Dioxide Level [Pending], Blood Urea Nitrogen [Pending], Creatinine [Pending], Estimat Glomerular Filtration Rate [Pending], Glucose Level [Pending], Calcium Level [Pending], Phosphorus Level [Pending], Magnesium Level [Pending], Total Bilirubin [Pending], Aspartate Amino Transf (AST/SGOT) [Pending], Alanine Aminotransferase (ALT/SGPT) [Pending], Alkaline Phosphatase [Pending], Total Protein [Pending], Albumin [Pending], Globulin [Pending] Current Medications Medications (Trade) Dose Ordered Sig/Jerman Route PRN Reason Start Time Stop Time Status Last Admin Dose Admin Barium Sulfate (Varibar Honey) 250 ml NOW PRN MC RAD 07/24/20 10:30 07/27/20 10:24 Barium Sulfate (Varibar Empire) 240 ml NOW PRN MC RAD 07/24/20 10:30 07/27/20 10:24 Barium Sulfate (Varibar Pudding) 230 ml NOW PRN MC RAD 07/24/20 10:30 07/27/20 10:24 Barium Sulfate (Varibar Thin Liquid powder) 148 gm NOW PRN MC RAD 07/24/20 10:30 07/27/20 10:24 Docusate Sodium (Colace) 100 mg THREE TIMES A DAY ORAL 07/26/20 13:00 08/25/20 12:59 07/27/20 08:48 Lorazepam (Ativan 2mg/ml 1ml) 1 mg Q4H PRN IV Restlessness 07/24/20 23:45 07/31/20 23:44 07/25/20 15:09 Midodrine (Pro-Amatine) 10 mg THREE TIMES A DAY ORAL 07/27/20 09:00 10/25/20 08:59 07/27/20 08:48 Pantoprazole (Protonix) 40 mg EVERY 12 HOURS ORAL 07/25/20 21:00 08/24/20 20:59 07/27/20 08:48 Sevelamer Carbonate (Renvela) 800 mg THREE TIMES A DAY ORAL 07/25/20 18:00 10/23/20 17:59 07/27/20 08:48 Ziprasidone (Geodon) 20 mg TWICE A DAY ORAL 07/24/20 18:00 09/07/20 17:59 07/27/20 08:48 Assessment/Plan Assessment/Plan ASSESSMENT AND PLAN: 1. Volume overload 2. Hypertension. 3. Chronic encephalopathy 4. Hyperkalemia 5. Diabetes. 6. Noncompliance. 7. Polysubstance abuse. 8. Hypotension PLAN bolus fluids care as is monitor fluid status cards follow up monitor heart rate monitor oxygen care impression, plan, and exam edited and reviewed in detail care discussed with Reggie Parra MD Jul 27, 2020 09:26
--- NOTE | 2020-07-27 09:38 | General Progress Note ---
Subjective Constitutional: Reports: weakness Allergies: Coded Allergies: No Known Allergies (Unverified , 07/24/18) All Systems: reviewed and negative except above Subjective o2nc calm in room sleepy Objective Last 24 Hour Vital Signs Date Time Temp Pulse Resp B/P (MAP) Pulse Ox O2 Delivery O2 Flow Rate FiO2 07/27/20 08:00 97.7 102 20 82/48 (59) 100 07/27/20 04:00 110 07/27/20 04:00 97.5 103 20 75/44 (54) 98 07/27/20 00:00 97.7 114 20 84/56 (65) 97 07/27/20 00:00 126 07/26/20 21:00 Nasal Cannula 2.0 07/26/20 20:00 97.6 122 20 127/79 (95) 95 07/26/20 20:00 108 07/26/20 16:00 97.9 129 20 102/73 (83) 95 07/26/20 16:00 133 07/26/20 12:00 98.0 107 20 105/65 (78) 96 07/26/20 12:00 107 Intake and Output 07/26/20 07/27/20 19:00 07:00 Intake Total 237 ml 210 ml Balance 237 ml 210 ml Intake Oral 237 ml 210 ml # Voids 2 # Bowel Movements 1 3 Laboratory Tests 07/27/20 08:35: White Blood Count [Pending], Red Blood Count [Pending], Hemoglobin [Pending], Hematocrit [Pending], Mean Corpuscular Volume [Pending], Mean Corpuscular Hemoglobin [Pending], Mean Corpuscular Hemoglobin Concent [Pending], Red Cell Distribution Width [Pending], Platelet Count [Pending], Mean Platelet Volume [Pending], Neutrophils (%) (Auto) [Pending], Lymphocytes (%) (Auto) [Pending], Monocytes (%) (Auto) [Pending], Eosinophils (%) (Auto) [Pending], Basophils (%) (Auto) [Pending], Sodium Level [Pending], Potassium Level [Pending], Chloride Level [Pending], Carbon Dioxide Level [Pending], Blood Urea Nitrogen [Pending], Creatinine [Pending], Estimat Glomerular Filtration Rate [Pending], Glucose Level [Pending], Calcium Level [Pending], Phosphorus Level [Pending], Magnesium Level [Pending], Total Bilirubin [Pending], Aspartate Amino Transf (AST/SGOT) [Pending], Alanine Aminotransferase (ALT/SGPT) [Pending], Alkaline Phosphatase [Pending], Total Protein [Pending], Albumin [Pending], Globulin [Pending] Height (Feet): 6 Height (Inches): 0.00 Weight (Pounds): 180 General Appearance: lethargic EENT: normal ENT inspection Neck: normal alignment Cardiovascular: normal peripheral pulses, normal rate, regular rhythm Respiratory/Chest: chest wall non-tender, lungs clear, normal breath sounds Abdomen: normal bowel sounds, non tender, soft Extremities: normal inspection Edema: no edema noted Arm (L), no edema noted Arm (R), no edema noted Leg (L), no edema noted Leg (R), no edema noted Pedal (L), no edema noted Pedal (R), no edema noted Generalized Neurologic: motor weakness Skin: normal pigmentation, warm/dry Assessment/Plan Problem List: (1) AMS (altered mental status) ICD Codes: R41.82 - Altered mental status, unspecified SNOMED: 615533686 (2) Weak ICD Codes: R53.1 - Weakness SNOMED: 74009356 (3) Anemia ICD Codes: D64.9 - Anemia SNOMED: 626060102 (4) ESRD (end stage renal disease) on dialysis ICD Codes: N18.6 - ESRD (end stage renal disease) on dialysis; Z99.2 - Dependence on renal dialysis SNOMED: 009809704 (5) HTN (hypertension) ICD Codes: I10 - HTN (hypertension) SNOMED: 41378971 (6) ACS (acute coronary syndrome) ICD Codes: I24.9 - Acute ischemic heart disease, unspecified SNOMED: 920291488 Status: unchanged Assessment/Plan: pt diet bp bs control neuro f/u dialysis cbc bmp in am Dheeraj Madden DO Jul 27, 2020 09:38
[2020-07-27 09:41] LABS: BASOPHILS % (AUTO) 0.6 % (0.0-2.0); EOSINOPHILS % (AUTO) 1.4 % (0.0-3.0); HEMATOCRIT 40.5 % (42.0-52.0); LYMPHOCYTES % (AUTO) 10.9 % (20.0-45.0); MEAN CORPUSCULAR VOLUME 94 FL (80-99); MONOCYTES % (AUTO) 9.5 % (1.0-10.0); NEUTROPHILS % (AUTO) 77.7 % (45.0-75.0); PLATELET COUNT 305 K/UL (150-450); RED BLOOD COUNT 4.29 M/UL (4.70-6.10); WHITE BLOOD COUNT 9.4 K/UL (4.8-10.8)
[2020-07-27 09:50] LABS: ALBUMIN 3.7 G/DL (3.4-5.0); ALBUMIN/GLOBULIN RATIO 1.1 (1.0-2.7); BILIRUBIN,TOTAL 0.6 MG/DL (0.2-1.0); CALCIUM 8.2 MG/DL (8.5-10.1); PHOSPHORUS 5.5 MG/DL (2.5-4.9); POTASSIUM 4.6 MMOL/L (3.5-5.1)
--- NOTE | 2020-07-27 10:01 | NUR ---
NURSE NOTES: Patient's blood pressure has been low, two bags of 250ml and one bag of 500ml NS bolus given, Patient's BP is still low 76/44. Dr. Wu and Dr. Huff is aware.
--- NOTE | 2020-07-27 10:25 | Psychiatry Consultation ---
Psychiatry Consultation Psychiatry Consultation Chief Complaint: Altered Mental Status History of Present Illness: 59-year-old male confused disorganized altered mental status cognition has declined below his baseline secondary to stress of his medical illness His daily psychiatric consultation to improve his cognition or at least prevent any further decline in his cognition he is denying any suicidal or homicidal ideations Mental status examination: 59-year-old male appears disheveled arterial agitated affect guarded restricted intellect poor mood depressed anxious moderately psychomotor agitation orientation x2 speech is low volume slurred thought process disorganized logical insight judgment is poor Allergies: Coded Allergies: No Known Allergies (Unverified , 07/24/18) Medication History Scheduled Cinacalcet* (Sensipar*), 30 MG ORAL DAILY, (Reported) Clonidine HCl (Clonidine HCl), 0.3 MG PO DAILY, (Reported) Esomeprazole Magnesium (Nexium), 40 MG ORAL DAILY, (Reported) Esomeprazole Magnesium (Nexium), 40 MG ORAL DAILY, (Reported) Metoprolol Tartrate* (Metoprolol Tartrate*), 50 MG ORAL DAILY, (Reported) Mv-Mn/Iron/Fa/Herbal Cmplx#190 (Vitamin D3 Complete Caplet), 1 EACH PO DAILY, (Reported) Nifedipine Er* (Adalat Cc*), 30 MG ORAL BID, (Reported) Nifedipine Xl* (Procardia Xl*), 30 MG ORAL DAILY, (Reported) Sevelamer HCl (Renagel), 800 MG ORAL THREE TIMES A DAY, (Reported) Vitamin B Complex (B Complex), 1 TAB ORAL DAILY, (Reported) Scheduled PRN Clonidine Hcl* (Catapres*), 0.1 MG ORAL EVERY 6 HOURS PRN for DIALYSIS, (Reported) Diphenhydramine Hcl* (Diphenhydramine Hcl*), 50 MG ORAL Q6H PRN for DIALYSIS, (Reported) OXYCODONE HCl* (Roxicodone*), 30 MG ORAL Q3HR PRN for For Pain, (Reported) Miscellaneous Medications [meoprolol], (Reported) Discontinued Medications Azithromycin* (Zithromax*), 250 MG ORAL DAILY Discontinued Reason: Pt stopped taking med Objective Data Height (Feet): 6 Height (Inches): 0.00 Weight (Pounds): 180 Assessment/Plan Assessment/Plan: Treat this patient with admitted regimen of Geodon 20 mg twice a day help sta bilize his mood and provided with 20 minutes of cognitive behavioral therapy will help monitor approximately helpful for his negative thoughts to conmvert to more positive thoughts to persist living dose of July 26 revealed this definitely seems less depressed affect Diagnosis [place] I: 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
--- NOTE | 2020-07-27 10:51 | NUR ---
NURSE NOTES: patient in bed, awake, eating, alert and oriented denies any pain, no short of breath BP 85/56, SR in the monitor, not in distress. Dr Nobles ordered NS bolus 500ml. call placed to dr Delvalle to clarify his orders.
--- NOTE | 2020-07-27 12:56 | Cardiac Electrophysiology PN ---
Assessment/Plan Assessment/Plan 1. Volume overload with BNP of more than 30,000. Had HD for [address] Huff. Troponins are both negative. EF 60% 2. Hypotension. Off any BP meds. Improved with iv fluids and albumin. ICU transfer was cancelled. 3. Altered mental status. Head CT was negative for intracranial process. FU Neuro. Likely metabolic. 4. Hyperkalemia in a patient with renal failure. 5. Diabetes. 6. Noncompliance. 7. Polysubstance abuse. DW RN, Dr. Huff, Bryce and Mallorie Subjective Subjective BP dropped to 70s but got better after 1.5 liter iv fluids and albumin. Also evaluated by Dr Huff and getting another HD without fluid removal. Objective Last 24 Hour Vital Signs Date Time Temp Pulse Resp B/P (MAP) Pulse Ox O2 Delivery O2 Flow Rate FiO2 07/27/20 12:00 97.7 91 20 98/54 (69) 96 07/27/20 10:47 85/56 (66) 07/27/20 10:00 88 76/44 (55) 07/27/20 09:00 Nasal Cannula 2.0 07/27/20 08:00 97.7 102 20 82/48 (59) 100 07/27/20 08:00 105 07/27/20 04:00 110 07/27/20 04:00 97.5 103 20 75/44 (54) 98 07/27/20 00:00 97.7 114 20 84/56 (65) 97 07/27/20 00:00 126 07/26/20 21:00 Nasal Cannula 2.0 07/26/20 20:00 97.6 122 20 127/79 (95) 95 07/26/20 20:00 108 07/26/20 16:00 97.9 129 20 102/73 (83) 95 07/26/20 16:00 133 Intake and Output 07/26/20 07/27/20 18:59 06:59 Intake Total 237 ml 210 ml Balance 237 ml 210 ml Intake Oral 237 ml 210 ml # Voids 2 # Bowel Movements 1 3 Laboratory Tests Test 07/27/20 08:35 White Blood Count 9.4 K/UL (4.8-10.8) Red Blood Count 4.29 M/UL (4.70-6.10) L Hemoglobin 14.0 G/DL (14.2-18.0) L Hematocrit 40.5 % (42.0-52.0) L Mean Corpuscular Volume 94 FL (80-99) Mean Corpuscular Hemoglobin 32.8 PG (27.0-31.0) H Mean Corpuscular Hemoglobin Concent 34.7 G/DL (32.0-36.0) Red Cell Distribution Width 16.0 % (11.6-14.8) H Platelet Count 305 K/UL (150-450) Mean Platelet Volume 6.5 FL (6.5-10.1) Neutrophils (%) (Auto) 77.7 % (45.0-75.0) H Lymphocytes (%) (Auto) 10.9 % (20.0-45.0) L Monocytes (%) (Auto) 9.5 % (1.0-10.0) Eosinophils (%) (Auto) 1.4 % (0.0-3.0) Basophils (%) (Auto) 0.6 % (0.0-2.0) Sodium Level 133 MMOL/L (136-145) L Potassium Level 4.6 MMOL/L (3.5-5.1) Chloride Level 97 MMOL/L (98-107) L Carbon Dioxide Level 22 MMOL/L (21-32) Anion Gap 15 mmol/L (5-15) Blood Urea Nitrogen 53 mg/dL (7-18) H Creatinine 14.0 MG/DL (0.55-1.30) H Estimat Glomerular Filtration Rate 4.4 mL/min (>60) Glucose Level 111 MG/DL (74-106) H Calcium Level 8.2 MG/DL (8.5-10.1) L Phosphorus Level 5.5 MG/DL (2.5-4.9) H Magnesium Level 2.2 MG/DL (1.8-2.4) Total Bilirubin 0.6 MG/DL (0.2-1.0) Aspartate Amino Transf (AST/SGOT) 23 U/L (15-37) Alanine Aminotransferase (ALT/SGPT) 24 U/L (12-78) Alkaline Phosphatase 142 U/L (46-116) H Total Protein 7.1 G/DL (6.4-8.2) Albumin 3.7 G/DL (3.4-5.0) Globulin 3.4 g/dL Albumin/Globulin Ratio 1.1 (1.0-2.7) Microbiology Date/Time Source Procedure Growth Status 07/25/20 13:16 Nasopharynx SARS-CoV-2 RdRp Gene Assay - Final Complete Objective HEAD AND NECK: No JVD. LUNGS: Decreased breath sounds. CARDIOVASCULAR: Shows regular S1 and S2 with no gallop. ABDOMEN: Soft. EXTREMITIES: AV shunt in the left upper extremity. Tye Delvalle MD Jul 27, 2020 12:56
--- NOTE | 2020-07-27 14:17 | NUR ---
NURSE NOTES: BP post HD 96/44, pt not in distress, notified dr dickson, and ordered okay to cancel ICU transfer.
--- NOTE | 2020-07-27 14:59 | Neurology Progress Note ---
Interim History Interim History ROS Limited/Unobtainable: No Complaints: patient without pain,no headache Objective Physical Exam Last Vital Signs Date Time Temp Pulse Resp B/P (MAP) Pulse Ox O2 Delivery O2 Flow Rate FiO2 07/27/20 12:00 97.7 91 20 98/54 (69) 96 07/27/20 09:00 Nasal Cannula 2.0 Laboratory Tests Test 07/27/20 08:35 White Blood Count 9.4 K/UL (4.8-10.8) Red Blood Count 4.29 M/UL (4.70-6.10) L Hemoglobin 14.0 G/DL (14.2-18.0) L Hematocrit 40.5 % (42.0-52.0) L Mean Corpuscular Volume 94 FL (80-99) Mean Corpuscular Hemoglobin 32.8 PG (27.0-31.0) H Mean Corpuscular Hemoglobin Concent 34.7 G/DL (32.0-36.0) Red Cell Distribution Width 16.0 % (11.6-14.8) H Platelet Count 305 K/UL (150-450) Mean Platelet Volume 6.5 FL (6.5-10.1) Neutrophils (%) (Auto) 77.7 % (45.0-75.0) H Lymphocytes (%) (Auto) 10.9 % (20.0-45.0) L Monocytes (%) (Auto) 9.5 % (1.0-10.0) Eosinophils (%) (Auto) 1.4 % (0.0-3.0) Basophils (%) (Auto) 0.6 % (0.0-2.0) Sodium Level 133 MMOL/L (136-145) L Potassium Level 4.6 MMOL/L (3.5-5.1) Chloride Level 97 MMOL/L (98-107) L Carbon Dioxide Level 22 MMOL/L (21-32) Anion Gap 15 mmol/L (5-15) Blood Urea Nitrogen 53 mg/dL (7-18) H Creatinine 14.0 MG/DL (0.55-1.30) H Estimat Glomerular Filtration Rate 4.4 mL/min (>60) Glucose Level 111 MG/DL (74-106) H Calcium Level 8.2 MG/DL (8.5-10.1) L Phosphorus Level 5.5 MG/DL (2.5-4.9) H Magnesium Level 2.2 MG/DL (1.8-2.4) Total Bilirubin 0.6 MG/DL (0.2-1.0) Aspartate Amino Transf (AST/SGOT) 23 U/L (15-37) Alanine Aminotransferase (ALT/SGPT) 24 U/L (12-78) Alkaline Phosphatase 142 U/L (46-116) H Total Protein 7.1 G/DL (6.4-8.2) Albumin 3.7 G/DL (3.4-5.0) Globulin 3.4 g/dL Albumin/Globulin Ratio 1.1 (1.0-2.7) Neurologic Exam Mental Status: alert - lethargic, normal cognition - date ? place? Cranial Nerve II: other - visual dean intact to threat Cranial Nerves III, IV, : pupils - 4.00mm sluggish reaction Cranial Nerve VII: no facial asymmetry, normal facial expressions Cranial Nerve VIII: other - partially intact Cranial Nerve XII: tongue midline, no tongue atrophy/fasciculations Motor System: normal muscle tone, strength 5/5, no involuntary movement, no muscle wasting, other - decreased muscle tone moves upper ext symm. moves toes little proximal leg movement Sensory: normal pinprick, normal light touch, normal position sense, normal graphesthesia, other - pain intact Deep Tendon Reflexes: 0 bicep (L), 0 bicep (R), 0 tricep (L), 0 tricep (R), 0 brachioradialis (L), 0 brachioradialis (R), 0 knee (L), 0 knee (R), 0 ankle (L), 0 ankle (R) Reflexes: flexor plantar (L), flexor plantar (R) Gait: stable, normal regular, heel + toe gait, other - cant test Objective metabolic enceph. secondary to renal failure and meds geodon b-12 normal Imaging mri not done Impression/Recommendations Status: unchanged Diagnostic Impression metabolic enceph. secondary to renal failure and meds b-12 normal ammonia normal Recommendations continue dialysis Vikas Deal MD Jul 27, 2020 14:59
--- NOTE | 2020-07-27 15:00 | Consultation ---
Vikas Simmons MD Jul 27, 2020 15:00
--- NOTE | 2020-07-27 15:01 | Cardiology Report ---
APPROVED REPORT EKG Measurement Heart [id number] [place] [id number] <Conclusion> Sinus rhythm with 1st degree AV block Left anterior fascicular block Abnormal ECG
--- NOTE | 2020-07-27 19:15 | NUR ---
NURSE HAND-OFF REPORT: Important Events on Shift:[Hypotensive] Patient Status: [Hypotensive] Diet: [Renal] Pending Orders: [NA] Pending Results/Labs:[Morning labs] Pending MD notification:[NA] Latest Vital Signs: Temperature 97.5 , Pulse 88 , B/P 93 /56 , Respiratory Rate 20 , O2 SAT 100 , Nasal Cannula, O2 Flow Rate 2.0 . Vital Sign Comment: [] EKG Rhythm: Sinus Rhythm Rhythm change?: N MD Notified?: Y -Dr Mook WARREN Response: Message left await call Latest Lott Fall Score: 35 Fall Risk: Medium Risk Safety Measures: Call light Within Reach, Bed Alarm Zone 1, Side Rails Side Rails x3, Bed position Low and Locked. Fall Precautions: Yellow Socks Yellow Gown Door Sign Patient Fall Education Report given to [Mitzi/RN].
--- NOTE | 2020-07-27 19:48 | NUR ---
NURSE NOTES: Received patient from SILVESTRE Doyle. Patient awake, and seen resting in bed. Verbally responsive and able to communicate needs. IV site intact and flushed; no IVF running at this time. Patient still noted to be hypotensive, but MDs aware; no orders for bolus or fluids. Patient had dialysis today, no fluids taken out. Patient not in distress, no complaints of pain or discomfort at this time. Bed in lowest position, brakes engaged and bed alarm on. Bed rails raised x3. Reiterated to use call light when needing assistance. Call light placed within reach. Will continue to closely monitor.
[2020-07-28] VITALS: BP 119/76
[2020-07-28 04:00] VITALS: BP 104/64
[2020-07-28 07:23] LABS: BLOOD UREA NITROGEN 41 mg/dL (7-18); CALCIUM 8.1 MG/DL (8.5-10.1); CHLORIDE 96 MMOL/L (98-107); CREATININE 10.8 MG/DL (0.55-1.30); POTASSIUM 3.8 MMOL/L (3.5-5.1); SODIUM 135 MMOL/L (136-145)
--- NOTE | 2020-07-28 07:34 | NUR ---
NURSE NOTES: Patient insisted on walking to the bathroom during the morning. Patient was supervised closely by 2 nurses, but patient slammed the door at the staff members. staff stayed outside the restroom during the whole time to ensure patient safety. Patient was adamant that he should be able to go home soon and being in the hospital feels like a long-term. Nurse politely informed patient that his length of stay would be dependent on his doctors' medical insight.
--- NOTE | 2020-07-28 07:36 | NUR ---
NURSE HAND-OFF REPORT: Important Events on Shift:[No hypotensive episode during the shift. SBP remained above 100s.] Patient Status: [FC] Diet: [Renal] Pending Orders: [] Pending Results/Labs:[] Pending MD notification:[] Latest Vital Signs: Temperature 97.6 , Pulse 86 , B/P 104 /64 , Respiratory Rate 19 , O2 SAT 98 , Nasal Cannula, O2 Flow Rate 2.0 . Vital Sign Comment: [] EKG Rhythm: SR W/ 1 AVB Rhythm change?: N MD Notified?: Y -Dr Mook WARREN Response: Message left await call Latest Lott Fall Score: 35 Fall Risk: Medium Risk Safety Measures: Call light Within Reach, Bed Alarm Zone 1, Side Rails Side Rails x3, Bed position Low and Locked. Fall Precautions: Yellow Socks Yellow Gown Door Sign Patient Fall Education Report given to [SILVESTRE Flores].
[2020-07-28 07:38] LABS: BASOPHILS % (AUTO) 1.1 % (0.0-2.0); EOSINOPHILS % (AUTO) 4.9 % (0.0-3.0); HEMOGLOBIN 13.5 G/DL (14.2-18.0); LYMPHOCYTES % (AUTO) 15.7 % (20.0-45.0); MEAN CORPUSCULAR VOLUME 93 FL (80-99); MONOCYTES % (AUTO) 11.8 % (1.0-10.0); NEUTROPHILS % (AUTO) 66.6 % (45.0-75.0); PLATELET COUNT 247 K/UL (150-450); RED BLOOD COUNT 4.08 M/UL (4.70-6.10); RED CELL DISTRIBUTION WIDTH 15.8 % (11.6-14.8); WHITE BLOOD COUNT 6.4 K/UL (4.8-10.8)
[2020-07-28 07:39] LABS: CARBON DIOXIDE 25 MMOL/L (21-32)
--- NOTE | 2020-07-28 07:44 | NUR ---
NURSE NOTES: Received Pt report from Mitzi. Pt is in bed, stable talking on the phone. Pt appears in a better mood today, talkative. Pt on 2LPM, no s/s or complaint of distress at this time. Pt bed low and locked, call light in reach and bed alarm on. Pt instructed to call for help, verbalized understanding.
[2020-07-28 07:53] LABS: ALANINE AMINOTRANSFERASE 19 U/L (12-78); ALBUMIN 4.4 G/DL (3.4-5.0); ALKALINE PHOSPHATASE 123 U/L (46-116); ASPARTATE AMINO TRANSFERASE 23 U/L (15-37); BILIRUBIN,DIRECT 0.2 MG/DL (0.0-0.3); BILIRUBIN,TOTAL 0.8 MG/DL (0.2-1.0); PHOSPHORUS 6.1 MG/DL (2.5-4.9)
[2020-07-28 08:00] VITALS: BP 120/74
--- NOTE | 2020-07-28 08:43 | Psychiatry Consultation ---
Psychiatry Consultation Psychiatry Consultation Chief Complaint: Altered Mental Status History of Present Illness: She had 59-year-old male patient is confused disorganized is got altered mental status is got diabetes hypertension end-stage renal disease and altered mental status and his cognition has declined below his baseline secondary to stress of his medical illness so he is being followed daily by psychiatry to try to prevent any further decline in his cognition and try to improve his cognition closer to his baseline Mental status examination: 59-year-old male patient is appearance disheveled his attitude irritable agitated affect labile intellect poor mood depressed anxious motor activity psychomotor agitation judgment is poor orientation x2 speech nonsensical thought process disorganized and illogical Insight and judgment is poor Allergies: Coded Allergies: No Known Allergies (Unverified , 07/24/18) Medication History Scheduled Cinacalcet* (Sensipar*), 30 MG ORAL DAILY, (Reported) Clonidine HCl (Clonidine HCl), 0.3 MG PO DAILY, (Reported) Esomeprazole Magnesium (Nexium), 40 MG ORAL DAILY, (Reported) Esomeprazole Magnesium (Nexium), 40 MG ORAL DAILY, (Reported) Metoprolol Tartrate* (Metoprolol Tartrate*), 50 MG ORAL DAILY, (Reported) Mv-Mn/Iron/Fa/Herbal Cmplx#190 (Vitamin D3 Complete Caplet), 1 EACH PO DAILY, (Reported) Nifedipine Er* (Adalat Cc*), 30 MG ORAL BID, (Reported) Nifedipine Xl* (Procardia Xl*), 30 MG ORAL DAILY, (Reported) Sevelamer HCl (Renagel), 800 MG ORAL THREE TIMES A DAY, (Reported) Vitamin B Complex (B Complex), 1 TAB ORAL DAILY, (Reported) Scheduled PRN Clonidine Hcl* (Catapres*), 0.1 MG ORAL EVERY 6 HOURS PRN for DIALYSIS, (Reported) Diphenhydramine Hcl* (Diphenhydramine Hcl*), 50 MG ORAL Q6H PRN for DIALYSIS, (Reported) OXYCODONE HCl* (Roxicodone*), 30 MG ORAL Q3HR PRN for For Pain, (Reported) Miscellaneous Medications [meoprolol], (Reported) Discontinued Medications Azithromycin* (Zithromax*), 250 MG ORAL DAILY Discontinued Reason: Pt stopped taking med Objective Data Height (Feet): 6 Height (Inches): 0.00 Weight (Pounds): 180 Assessment/Plan Assessment/Plan: Treat this patient with admitted regimen of Geodon 20 mg twice a day help stabilize his mood and provided with 20 minutes of cognitive behavioral therapy will help monitor approximately helpful for his negative thoughts to conmvert to more positive thoughts to persist living dose of July 26 revealed this definitely seems less depressed affect Diagnosis [place] I: 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
--- NOTE | 2020-07-28 09:36 | General Progress Note ---
Subjective Constitutional: Reports: weakness Allergies: Coded Allergies: No Known Allergies (Unverified , 07/24/18) All Systems: reviewed and negative except above Subjective o2nc calm in room sleepy Objective Last 24 Hour Vital Signs Date Time Temp Pulse Resp B/P (MAP) Pulse Ox O2 Delivery O2 Flow Rate FiO2 07/28/20 04:00 97.6 86 19 104/64 (77) 98 07/28/20 04:00 93 07/28/20 00:00 84 07/28/20 00:00 97.7 73 20 119/76 (90) 98 07/27/20 21:00 Nasal Cannula 2.0 07/27/20 20:00 97.5 92 20 91/50 (64) 94 07/27/20 20:00 83 07/27/20 17:18 88 93/56 (68) 07/27/20 16:00 99 07/27/20 16:00 97.5 99 20 83/46 (58) 100 07/27/20 12:00 97.7 91 20 98/54 (69) 96 07/27/20 12:00 84 07/27/20 10:47 85/56 (66) 07/27/20 10:00 88 76/44 (55) Intake and Output 07/27/20 07/28/20 19:00 07:00 Intake Total 236 ml 270 ml Output Total 0 ml Balance 236 ml 270 ml Intake Oral 236 ml 270 ml Hemodialysis UF 0 ml # Voids 1 Laboratory Tests 07/28/20 06:20: White Blood Count 6.4, Red Blood Count 4.08L, Hemoglobin 13.5L, Hematocrit 38.0L , Mean Corpuscular Volume 93, Mean Corpuscular Hemoglobin 33.1H, Mean Corpuscular Hemoglobin Concent 35.5, Red Cell Distribution Width 15.8H, Platelet Count 247, Mean Platelet Volume 6.4L, Neutrophils (%) (Auto) 66.6, Lymphocytes (%) (Auto) 15.7L, Monocytes (%) (Auto) 11.8H, Eosinophils (%) (Auto) 4.9H, Basophils (%) (Auto) 1.1, Sodium Level 135L, Potassium Level 3.8, Chloride Level 96L, Carbon Dioxide Level 25, Blood Urea Nitrogen 41H, Creatinine 10.8H, Estimat Glomerular Filtration Rate 5.9, Glucose Level 117H, Calcium Level 8.1L, Phosphorus Level 6.1H, Magnesium Level 1.9, Total Bilirubin 0.8, Direct Bilirubin 0.2, Aspartate Amino Transf (AST/SGOT) 23, Alanine Aminotransferase (ALT/SGPT) 19, Alkaline Phosphatase 123H, Total Protein 7.6, Albumin 4.4 Height (Feet): 6 Height (Inches): 0.00 Weight (Pounds): 180 General Appearance: lethargic EENT: normal ENT inspection Neck: normal alignment Cardiovascular: normal peripheral pulses, normal rate, regular rhythm Respiratory/Chest: chest wall non-tender, lungs clear, normal breath sounds Abdomen: normal bowel sounds, non tender, soft Extremities: normal inspection Edema: no edema noted Arm (L), no edema noted Arm (R), no edema noted Leg (L), no edema noted Leg (R), no edema noted Pedal (L), no edema noted Pedal (R), no edema noted Generalized Neurologic: motor weakness Skin: normal pigmentation, warm/dry Assessment/Plan Problem List: (1) AMS (altered mental status) ICD Codes: R41.82 - Altered mental status, unspecified SNOMED: 470249370 (2) Weak ICD Codes: R53.1 - Weakness SNOMED: 03378080 (3) Anemia ICD Codes: D64.9 - Anemia SNOMED: 718279966 (4) ESRD (end stage renal disease) on dialysis ICD Codes: N18.6 - ESRD (end stage renal disease) on dialysis; Z99.2 - Dependence on renal dialysis SNOMED: 031616397 (5) HTN (hypertension) ICD Codes: I10 - HTN (hypertension) SNOMED: 46287012 (6) ACS (acute coronary syndrome) ICD Codes: I24.9 - Acute ischemic heart disease, unspecified SNOMED: 821046376 Status: stable, progressing Assessment/Plan: pt diet bp bs control neuro f/u dialysis cbc bmp in am dc plan w Dheeraj Dailey DO Jul 28, 2020 09:36
--- NOTE | 2020-07-28 09:44 | Cardiac Electrophysiology PN ---
Assessment/Plan Assessment/Plan 1. Volume overload with BNP of more than 30,000. Had HD for [address] Huff. Troponins are both negative. EF 60% 2. Hypotension. Off any BP meds. Improved with iv fluids and albumin. 3. Altered mental status. Head CT was negative for intracranial process. FU Neuro. Likely metabolic. Fully resolved. Wants to go home 4. Hyperkalemia in a patient with renal failure. 5. Diabetes. 6. Noncompliance. 7. Polysubstance abuse. ARMANDO RN, Dr. Huff, Bryce and Mallorie Subjective Subjective BP dropped to 70s yesterday but got better after 1.5 liter iv fluids and albumin. Very alert today talking on the phone insisting on going home. Objective Last 24 Hour Vital Signs Date Time Temp Pulse Resp B/P (MAP) Pulse Ox O2 Delivery O2 Flow Rate FiO2 07/28/20 04:00 97.6 86 19 104/64 (77) 98 07/28/20 04:00 93 07/28/20 00:00 84 07/28/20 00:00 97.7 73 20 119/76 (90) 98 07/27/20 21:00 Nasal Cannula 2.0 07/27/20 20:00 97.5 92 20 91/50 (64) 94 07/27/20 20:00 83 07/27/20 17:18 88 93/56 (68) 07/27/20 16:00 99 07/27/20 16:00 97.5 99 20 83/46 (58) 100 07/27/20 12:00 97.7 91 20 98/54 (69) 96 07/27/20 12:00 84 07/27/20 10:47 85/56 (66) 07/27/20 10:00 88 76/44 (55) Intake and Output 07/27/20 07/28/20 18:59 06:59 Intake Total 236 ml 270 ml Output Total 0 ml Balance 236 ml 270 ml Intake Oral 236 ml 270 ml Hemodialysis UF 0 ml # Voids 1 Laboratory Tests Test 07/28/20 06:20 White Blood Count 6.4 K/UL (4.8-10.8) Red Blood Count 4.08 M/UL (4.70-6.10) L Hemoglobin 13.5 G/DL (14.2-18.0) L Hematocrit 38.0 % (42.0-52.0) L Mean Corpuscular Volume 93 FL (80-99) Mean Corpuscular Hemoglobin 33.1 PG (27.0-31.0) H Mean Corpuscular Hemoglobin Concent 35.5 G/DL (32.0-36.0) Red Cell Distribution Width 15.8 % (11.6-14.8) H Platelet Count 247 K/UL (150-450) Mean Platelet Volume 6.4 FL (6.5-10.1) L Neutrophils (%) (Auto) 66.6 % (45.0-75.0) Lymphocytes (%) (Auto) 15.7 % (20.0-45.0) L Monocytes (%) (Auto) 11.8 % (1.0-10.0) H Eosinophils (%) (Auto) 4.9 % (0.0-3.0) H Basophils (%) (Auto) 1.1 % (0.0-2.0) Sodium Level 135 MMOL/L (136-145) L Potassium Level 3.8 MMOL/L (3.5-5.1) Chloride Level 96 MMOL/L (98-107) L Carbon Dioxide Level 25 MMOL/L (21-32) Blood Urea Nitrogen 41 mg/dL (7-18) H Creatinine 10.8 MG/DL (0.55-1.30) H Estimat Glomerular Filtration Rate 5.9 mL/min (>60) Glucose Level 117 MG/DL (74-106) H Calcium Level 8.1 MG/DL (8.5-10.1) L Phosphorus Level 6.1 MG/DL (2.5-4.9) H Magnesium Level 1.9 MG/DL (1.8-2.4) Total Bilirubin 0.8 MG/DL (0.2-1.0) Direct Bilirubin 0.2 MG/DL (0.0-0.3) Aspartate Amino Transf (AST/SGOT) 23 U/L (15-37) Alanine Aminotransferase (ALT/SGPT) 19 U/L (12-78) Alkaline Phosphatase 123 U/L (46-116) H Total Protein 7.6 G/DL (6.4-8.2) Albumin 4.4 G/DL (3.4-5.0) Microbiology Date/Time Source Procedure Growth Status 07/25/20 13:16 Nasopharynx SARS-CoV-2 RdRp Gene Assay - Final Complete Objective HEAD AND NECK: No JVD. LUNGS: Decreased breath sounds. CARDIOVASCULAR: Shows regular S1 and S2 with no gallop. ABDOMEN: Soft. EXTREMITIES: AV shunt in the left upper extremity. Tye Delvalle MD Jul 28, 2020 09:44
[2020-07-28] MEDS: Midodrine 10mg tab ORAL SCH (09:45)
[2020-07-28] MEDS: Ziprasidone 20mg cap ORAL SCH (09:45)
[2020-07-28] MEDS: Docusate 100mg cap ORAL SCH (09:45)
--- NOTE | 2020-07-28 09:52 | Pulmonology Progress Note ---
Subjective ROS Limited/Unobtainable: No Interval Events: None new Respiratory: Reports: dry cough, shortness of breath Cardiovascular: Denies: chest pain, palpitations, other Allergies: Coded Allergies: No Known Allergies (Unverified , 07/24/18) All Systems: reviewed and negative except above Objective Last 24 Hour Vital Signs Date Time Temp Pulse Resp B/P (MAP) Pulse Ox O2 Delivery O2 Flow Rate FiO2 07/28/20 04:00 97.6 86 19 104/64 (77) 98 07/28/20 04:00 93 07/28/20 00:00 84 07/28/20 00:00 97.7 73 20 119/76 (90) 98 07/27/20 21:00 Nasal Cannula 2.0 07/27/20 20:00 97.5 92 20 91/50 (64) 94 07/27/20 20:00 83 07/27/20 17:18 88 93/56 (68) 07/27/20 16:00 99 07/27/20 16:00 97.5 99 20 83/46 (58) 100 07/27/20 12:00 97.7 91 20 98/54 (69) 96 07/27/20 12:00 84 07/27/20 10:47 85/56 (66) 07/27/20 10:00 88 76/44 (55) Intake and Output 07/27/20 07/28/20 18:59 06:59 Intake Total 236 ml 270 ml Output Total 0 ml Balance 236 ml 270 ml Intake Oral 236 ml 270 ml Hemodialysis UF 0 ml # Voids 1 General Appearance: WD/WN HEENT: normocephalic Respiratory: chest wall non-tender, lungs clear, decreased breath sounds Cardiovascular: normal peripheral pulses Abdomen: normal bowel sounds Extremities: no cyanosis Microbiology Date/Time Source Procedure Growth Status 07/25/20 13:16 Nasopharynx SARS-CoV-2 RdRp Gene Assay - Final Complete Laboratory Tests 07/28/20 06:20: White Blood Count 6.4, Red Blood Count 4.08L, Hemoglobin 13.5L, Hematocrit 38.0L , Mean Corpuscular Volume 93, Mean Corpuscular Hemoglobin 33.1H, Mean Corpuscular Hemoglobin Concent 35.5, Red Cell Distribution Width 15.8H, Platelet Count 247, Mean Platelet Volume 6.4L, Neutrophils (%) (Auto) 66.6, Lymphocytes (%) (Auto) 15.7L, Monocytes (%) (Auto) 11.8H, Eosinophils (%) (Auto) 4.9H, Basophils (%) (Auto) 1.1, Sodium Level 135L, Potassium Level 3.8, Chloride Level 96L, Carbon Dioxide Level 25, Blood Urea Nitrogen 41H, Creatinine 10.8H, Estimat Glomerular Filtration Rate 5.9, Glucose Level 117H, Calcium Level 8.1L, Phosphorus Level 6.1H, Magnesium Level 1.9, Total Bilirubin 0.8, Direct Bilir ubin 0.2, Aspartate Amino Transf (AST/SGOT) 23, Alanine Aminotransferase (ALT/SGPT) 19, Alkaline Phosphatase 123H, Total Protein 7.6, Albumin 4.4 Current Medications Medications (Trade) Dose Ordered Sig/Jerman Route PRN Reason Start Time Stop Time Status Last Admin Dose Admin Docusate Sodium (Colace) 100 mg THREE TIMES A DAY ORAL 07/26/20 13:00 08/25/20 12:59 07/28/20 09:45 Lorazepam (Ativan 2mg/ml 1ml) 1 mg Q4H PRN IV Restlessness 07/24/20 23:45 07/31/20 23:44 07/25/20 15:09 Midodrine (Pro-Amatine) 10 mg THREE TIMES A DAY ORAL 07/27/20 09:00 10/25/20 08:59 07/28/20 09:45 Pantoprazole (Protonix) 40 mg EVERY 12 HOURS ORAL 07/25/20 21:00 08/24/20 20:59 07/28/20 09:45 Sevelamer Carbonate (Renvela) 800 mg THREE TIMES A DAY ORAL 07/25/20 18:00 10/23/20 17:59 07/28/20 09:45 Ziprasidone (Geodon) 20 mg TWICE A DAY ORAL 07/24/20 18:00 09/07/20 17:59 07/28/20 09:45 Assessment/Plan Assessment/Plan Pulmonary Progress Note Subjective ROS Limited/Unobtainable: No Interval Events: None new Respiratory: Reports: dry cough, shortness of breath Cardiovascular: Denies: chest pain, palpitations, other Allergies: Coded Allergies: No Known Allergies (Unverified , 9/24/18) All Systems: reviewed and negative except above Subjective care noted Objective Vital Signs noted General Appearance: WD/WN HEENT: normocephalic Respiratory: chest wall non-tender, lungs clear, decreased breath sounds Cardiovascular: normal peripheral pulses Abdomen: normal bowel sounds Extremities: no cyanosis Laboratory Tests noted Assessment/Plan Assessment/Plan 1. Volume overload 2. Hypertension. 3. Chronic encephalopathy 4. Hyperkalemia 5. Diabetes. 6. Noncompliance. 7. Polysubstance abuse. 8. Hypotension PLAN IVfluidsPRN care as is monitor fluid status cards follow up monitor heart rate monitor oxygen care impression, plan, and exam edited and reviewed in detail care discussed with Filemon Melendrez MD Jul 28, 2020 09:52
--- NOTE | 2020-07-28 10:19 | NUR ---
*-*DISCHARGE PLANNING*-* PATIENT HAS BEEN REFERRED TO: [facility] P: [phone]
--- NOTE | 2020-07-28 11:09 | Nephrology Progress Note ---
Assessment/Plan Problem List: (1) ESRD (end stage renal disease) on dialysis (2) Hyperkalemia (3) Altered mental status Assessment: Toxic metabolic encephalopathy (4) Substance abuse Assessment Acute toxic metabolic encephalopathy Rule out CVA Rule out seizure ESRD on hemodialysis History of hypertension History of polysubstance abuse including cocaine Plan July 28: Dialyzed yesterday. His scheduled dialysis days are Tuesday. Patient mental status is at baseline. Patient would like to be discharged and go to outpatient dialysis per schedule. Stable from renal standpoint of view for discharge. July 27: Patient due for dialysis today. Blood pressure 75-85 systolic. Patient asymptomatic with low blood pressure. Will stop ultrafiltration during dialysis. IV boluses for low BP and Midodrin ordered. July 26: Patient was dialyzed twice July 24 and July 25. Labs reviewed. Medication list reviewed. Will attempt dialysis again tomorrow. Continue per consultants. July 25: Patient was dialyzed yesterday. Patient will be dialyzed again today. Serum potassium 5.9. Patient started on renal diet after he was cleared by speech therapist. Discussed with RN. Continue to keep blood pressure in check. Continue per consultants. Previously July 24: From renal standpoint of view I ordered urgent dialysis treatment Meanwhile we will keep the patient n.p.o. Neuro eval DEE Keep the blood pressure in check with IV Vasotec Discussed with RN Continue per consultants Subjective ROS Limited/Unobtainable: No Objective Objective Last 24 Hour Vital Signs Date Time Temp Pulse Resp B/P (MAP) Pulse Ox O2 Delivery O2 Flow Rate FiO2 07/28/20 09:00 Nasal Cannula 2.0 07/28/20 08:00 96.8 70 18 120/74 (89) 96 07/28/20 08:00 105 07/28/20 04:00 97.6 86 19 104/64 (77) 98 07/28/20 04:00 93 07/28/20 00:00 84 07/28/20 00:00 97.7 73 20 119/76 (90) 98 07/27/20 21:00 Nasal Cannula 2.0 07/27/20 20:00 97.5 92 20 91/50 (64) 94 07/27/20 20:00 83 07/27/20 17:18 88 93/56 (68) 07/27/20 16:00 99 07/27/20 16:00 97.5 99 20 83/46 (58) 100 07/27/20 12:00 97.7 91 20 98/54 (69) 96 07/27/20 12:00 84 Intake and Output 07/27/20 07/28/20 19:00 07:00 Intake Total 236 ml 410 ml Output Total 0 ml Balance 236 ml 410 ml Intake Oral 236 ml 410 ml Hemodialysis UF 0 ml # Voids 1 Laboratory Tests 07/28/20 06:20: White Blood Count 6.4, Red Blood Count 4.08L, Hemoglobin 13.5L, Hematocrit 38.0L , Mean Corpuscular Volume 93, Mean Corpuscular Hemoglobin 33.1H, Mean Corpuscular Hemoglobin Concent 35.5, Red Cell Distribution Width 15.8H, Platelet Count 247, Mean Platelet Volume 6.4L, Neutrophils (%) (Auto) 66.6, Lymphocytes (%) (Auto) 15.7L, Monocytes (%) (Auto) 11.8H, Eosinophils (%) (Auto) 4.9H, Basophils (%) (Auto) 1.1, Sodium Level 135L, Potassium Level 3.8, Chloride Level 96L, Carbon Dioxide Level 25, Blood Urea Nitrogen 41H, Creatinine 10.8H, Estimat Glomerular Filtration Rate 5.9, Glucose Level 117H, Calcium Level 8.1L, Phosphorus Level 6.1H, Magnesium Level 1.9, Total Bilirubin 0.8, Direct Bilirubin 0.2, Aspartate Amino Transf (AST/SGOT) 23, Alanine Aminotransferase (ALT/SGPT) 19, Alkaline Phosphatase 123H, Total Protein 7.6, Albumin 4.4 Height (Feet): 6 Height (Inches): 0.00 Weight (Pounds): 180 General Appearance: no apparent distress, other - Anxious to be discharged Cardiovascular: normal rate Respiratory/Chest: decreased breath sounds Abdomen: soft Objective No change Martín Huff MD Jul 28, 2020 11:09
[2020-07-28] MEDS ORDERED: PRO-AMATINE10 MG ORAL (11:40)
--- NOTE | 2020-07-28 11:54 | NUR ---
Social Work This SW received a consult due to substance abuse. This SW met with patient who admits to cocaine abuse, while stating that he wants to quit. Counseling and support provided, while offering substance abuse resources. Patient declined substance abuse resources and explains he has been involved in support groups in the past "" and plans to attend these meeting, when able. Patient informed of the health risks involved with substance abuse. Patient plans to discharge to home with home care today, while his sister plans to transport him. Patient explains his spouse is currently in [place]. No other needs or concerns presented at this time.
--- NOTE | 2020-07-28 12:00 | NUR ---
NURSE NOTES: Pt IV, wristbands, and tele monitor removed. pt given education and paperwork to follow up with PCP within 5 days. Prescription and med recon done by Dr Gray. pt signed belonging bags and took belongings with his self. Pt picked up by sisterKristi by private vehicle. Addendum: 07/28/20 at 1324 by Sandra Martínez RN RN Pt ride arrived at 1240. Addendum: 07/28/20 at 1325 by Sandra Martínez RN RN Pt stable on RA. last vitals 98.6 83 HR 19 RR 117/72 97% on RA
--- NOTE | 2020-07-28 12:00 | Consultation ---
DATE OF CONSULTATION: 07/25/2020 NEUROLOGIC CONSULTATION CONSULTING PHYSICIAN: Vikas Simmons M.D. CHIEF COMPLAINT: This is one of several [facility] admissions for this 59-year-old man with a history of hypertension, probable depression with psychotic features, schizophrenia, with end-stage renal disease, on dialysis, who was admitted on July 23, 2020 with changed mental status and hyperkalemia. Initially, CBC showed a slightly elevated white count. He was anemic with a hemoglobin of 12.8. Platelet count was normal. Toxicology screen was negative. Serum alcohol was less than 3. 01:45 the which is unremarkable. His chemistry is remarkable for potassium of 5.7, BUN of 63, and creatinine of 16.5. Alkaline phosphatase is elevated at 153. His liver function test is normal. He had a low LDL cholesterol and high HDL cholesterol. TSH is 0.84. Head CT on admission revealed evidence of increased density in the white matter related to small vessel disease. The rest was pretty much unremarkable. Chest x-ray revealed vascular engorgement and interstitial prominence, perhaps early edema. Echocardiogram revealed an ejection fraction of 60%, mild left ventricular hypertrophy, some microalveolar and aortic 04:10 calcification, mild diastolic dysfunction. The patient's PT and PTT were normal. Microbiology study negative for MRSA culture. The patient saw Dr. Jg Mccarthy yesterday, 07/24/2020. He noted a previous history of major depressive disorder, mild, recurrent with psychotic features. The patient was pretty much unresponsive. There is a previous history of cocaine and alcohol abuse. He was started on Geodon [address] Martín Huff, body shop floorperson, saw the patient on 07/24/2020. He diagnosed him to have acute toxic metabolic encephalopathy, rule out stroke, rule out 07:06, end-stage renal disease on hemodialysis, history of hypertension, and history of polysubstance abuse including cocaine. He wanted a neurological evaluation as soon as possible. The patient saw Dr. Delvalle, coremaker machine, yesterday who noted that the patient was "nonverbal." He diagnosed him with volume overload, hypertension, altered mental status, hyperkalemia, diabetes, and noncompliance, with polysubstance abuse. The patient was seen by Dr. Caal per his report. There is no known family history of neurologic concussion 09:24. Rest of the history cannot be obtained from the patient because he is basically nonverbal. He has altered mental status. PAST MEDICAL HISTORY/PAST MEDICAL ILLNESSES: 1. Hypertension. 2. 09:56 type 2 with end-stage renal disease, on dialysis. 3. Anemia of chronic disease. MEDICATIONS: He is on enalapril, clonidine, ibuprofen, Zofran, 10:06. ALLERGIES: No known allergies. SOCIAL HISTORY: Unavailable. FAMILY HISTORY: Unavailable. REVIEW OF SYSTEMS: Cannot be obtained except for the above. PHYSICAL EXAMINATION: GENERAL: He is a well-developed, well-nourished man, lying in bed awake, looking at the examiner. Basically nonverbal, occasionally grunts to his name. I asked him if he was in pain, he said "no." VITAL SIGNS: Blood pressure is 137/79, respiration rate is 20, pulse is 87 and regular, temperature is 98.1 degrees. HEENT: Arcus senilis. NECK: His neck is supple. Carotids could not be determined. LUNGS: Clear. CARDIOVASCULAR: Heart tones are distant. Could not hear any murmurs, rubs, S3, or S4. ABDOMEN: Obese. Bowel sounds intact. No tenderness, masses, or organomegaly appreciated. EXTREMITIES: He has a functioning fistula on left upper extremity. NEUROLOGIC EXAMINATION: Mental Status: The patient is awake, he is staring at the examiner. 12:22 because he could not lift his left arm to command. He could smile to command. His verbal output was significantly decreased. CRANIAL NERVE EXAMINATION: Cranial Nerve II: Visual dean appeared to be absent bilaterally. There is no blink. Pupils 3.6. The eyes are in the midline. There is 12:53. Cranial Nerves III, IV, and : Extraocular motility was full. Pupils are approximately 2.5 millimeters, round, and light reactive. CRANIAL NERVE V: Corneal and facial sensation intact. CRANIAL NERVE VII: Facial strength is 5/5 bilaterally. CRANIAL NERVE VIII: Auditory acuity was at least partially intact. CRANIAL NERVES IX AND X: Could not be tested. CRANIAL NERVE XI: Could not be tested. CRANIAL NERVE XII: Tongue protrudes in the midline. MUSCLE EXAMINATION: Muscle bulk has probably normal tone, decreased in the right upper extremity. He has some muscle twitching while sitting up, especially his left shoulder. He could not raise his arms or legs to command. He could wiggle his toes somewhat to command. Tone appeared to be decreased, especially in the right arm. Reflexes are 0 in the upper extremities, 0 at the knees and ankles with downgoing toes and testing for Babinski response. COORDINATION: Could not be tested. GAIT AND STATION: Could not be tested. SENSORY EXAMINATION: He did respond somewhat to pinprick in the extremities. IMPRESSION: 14:36 encephalopathy associated aphasia with it. This is probably superimposed on depressive disorder with psychotic features. The question is whether or not he has paranoid schizophrenia. 15:07 metabolic encephalopathy at this point is due to his end-stage renal disease with a high creatinine. He does not appear to have hepatic encephalopathy, Lou encephalitis, herpes simplex encephalitis, or bacterial meningitis. He may have had an acute stroke, although nothing was seen initially on the CT scan. The patient's strength was normal. If he has aphasia 15:51 strongly suggest a cardiac embolus. I think an MRI scan of the brain would be useful at this point. Partial complex seizure status epilepticus is unlikely, but an EEG may be necessary. The patient 16:34 which also can cause mental status changes. The patient also has an abnormal chest x-ray suggesting 17:03 or early heart failure, although his ejection fraction is normal. The left atrium is slightly enlarged, which could predispose him to intermittent atrial fibrillation, although his EKG reveals sinus rhythm with first-degree AV block and left anterior fascicular block, could not rule out inferior infarct. PLAN: 1. Severe pneumonia 18:18. 2. MRI scan of the brain without contrast. 3. RPR and FTA. 4. B12, methylmalonic acid level. 5. EEG. 6. Continue aggressive dialysis. Thank you for this interesting case. Vikas Simmons MD DR: QUE JOB#: [id number] CC:
--- NOTE | 2020-07-28 12:02 | NUR ---
RD ASSESSMENT & RECOMMENDATIONS SEE CARE ACTIVITY FOR COMPLETE ASSESSMENT DAILY ESTIMATED NEEDS: Needs based on ESRD + HD/ 74kg 25-30 kcals/kg 1038-2008 total kcals 1.2-1.8 g protein/kg 88-133 g total protein 20-25 mL/kg 1147-9579 total fluid mLs NUTRITION DIAGNOSIS: Altered nutrition related lab values R/T renal dysfunction as evidenced by elev creat (10.8), elev phos (6.1), elev BNP (59931) CURRENT DIET:RENAL, soft easy chew PO DIET RECOMMENDATIONS: RENAL, texture as tolerated ADDITIONAL RECOMMENDATIONS: * Daily calibrated bedscale wt- uptrend at this time * Nepro BID w/ variable PO intake (425kcal/ 19g prot each) * Nephrovite x 1 * Monitor phos: consistently elevated, monitor need to increase Renvela
--- NOTE | 2020-07-28 12:15 | NUR ---
DISCHARGE PLANNING PER MD'S REQUEST PATIENT WAS REFERRED TO [facility]. THEY ACCEPTED PATIENT THIS MORNING AND ARE WORKING ON OBTAINING AUTHORIZATION FROM INSURANCE
--- NOTE | 2020-07-28 12:21 | NUR ---
CASE MANAGEMENT:REVIEW 07/28/20 SI: ACUTE ENCEPHALOPATHY. ANEMIA. ACS ESRD ON HD. NON VERBAL 96.8 105 18 120/74 96% ON 2L/NC H/H-13.5/38.0 BUN+41 CR+10.8 IS: PROTONIX PO Q12 RENVELA PO TID COLACE PO TID IV ATIVAN Q4HRS PRN RESTLESSNESS GEODON PO BID : TELEMETRY STATUS DCP: ACUTE REHAB NOTE: PRIOR TO ADMISSION PATIENT WAS FULLY INDEPENDENT AND DROVE HIMSELF TO AND FROM DIALYSIS. NOW PATIENT OPENS EYES BUT DOES NOT SPEAK AMBULATING ONLY 40FT EEG REFERRED TO [facility] ~ WAITING FOR [facility] TO GIVE AUTHORIZATION
--- NOTE | 2020-07-28 12:39 | NUR ---
DISCHARGE PLAN DISCHARGE HAS BEEN HELD EEG RESULTS PENDING ONLY AMBULATING 40FT [facility] HAS ACCEPTED AND THEY ARE WORKING ON OBTAING AUTHORIZATION OUTPATIENT DIALYSIS RENAL [facility]ARE [facility] [address] [facility] T:[phone]
--- NOTE | 2020-07-30 11:48 | Discharge Summary ---
Discharge Summary Discharge Summary _ Discharge summary DATE OF ADMISSION: 07/22/2020 DATE OF DISCHARGE: 07/28/2020 DISCHARGED BY: Dr. Wu REASON FOR ADMISSION: 59 years old male with past medical history of end-stage renal disease, on hemodialysis, hypertension, presented due to altered mental status. According to paramedics, they were called to the patient home by his roommate , who found him altered about 1 hour prior to their arrival. Apparently he was witnessed him using cocaine and drinking large amount of alcohol , earlier in the day. Patient was somnolent but arousable though very disoriented. Dialysis was done 2 days ago, and patient apparently was scheduled for dialysis that day, but he did not go. Upon evaluation vital signs were stable. EKG revealed sinus rhythm , no acute ischemic changes. First-degree AV block noted. Inverted slightly peaked T waves in lateral leads. Chest x-ray revealed small effusion bilaterally, pulmonary vascular congestion. No leukocytosis ,hemoglobin 12, hematocrit 36.2. Potassium 5.7. BUN 63, creatinine 15.5. Glucose 93. Stable LFT. Pro BNP 22077. Troponin 0.055. Albumin 3.9. Serum alcohol less than 3 . Lactic acid 1.[address] of the head revealed areas of decreased density in the white matter, likely related to small vessel ischemic changes. Cerebral atrophy noted . Apparently prior to transfer to the floor patient became diaphoretic and more altered. Blood glucose was 26. Patient received 2 ampules of dextrose , and blood sugar went up to 246. Patient subsequently transferred to telemetry floor for further management. CONSULTANTS: district administrative assistant Dr. Charles neurologist Dr. Simmons pulmonary Dr. Caal tinsel machine operator Dr. Huff psychiatrist Dr. Mccarthy [facility]: Patient admitted to telemetry floor. Hyperkalemia was treated. Dialysis provided as per tinsel machine operator recommendations with close monitoring of volumes , renal parameters and electrolytes . Electrolytes further corrected as needed. Echocardiogram demonstrated preserved ejection fraction of 60% with mild left ventricular hypertrophy. No evidence of wall motion abnormality. Right ventricular systolic pressure of 20. Repeated troponin x2 were negative. Telemetry showed no acute ischemic changes. Patient was ruled out for acute myocardial infarction. Patient had volume overload due to missed hemodialysis, which corrected with inpatient dialysis. ProBNP trended down. Patient noted to be hypotensive ; all antihypertensive medication were discont inued. Hemodynamic status was closely monitored. Blood pressure improved with IV fluids and albumin boluses. Neurologist followed. Per neurologist patient had metabolic encephalopathy secondary to renal failure and probably drugs. Ammonia level was within normal limits. B12 within normal limits. RPR and FTAABS non-reactive. Supplemental oxygen provided and titrated to keep pulse oximetry above 92%. DVT and GI prophylaxis provided. Psychiatric medication regimen was optimized as per psychiatrist. Cognitive behavioral therapy provided. Mental status improved to baseline Authorization was approved for acute rehabilitation unit at [facility]. Patient declined and stated that he wanted to go home. Patient subsequently was discharged home. Patient was counseled on abstinence from illicit street drugs and ETOH. FINAL DIAGNOSES: Volume overload likely due to missed dialysis Hypotension- improved Hyperkalemia Acute metabolic encephalopathy secondary to renal failure and possibly drugs ESRD, on hemodialysis Noncompliance with medication Polysubstance abuse Major depressive disorder, severe, recurrent with psychotic features DISCHARGE MEDICATIONS: See Medication Reconciliation list. DISCHARGE INSTRUCTIONS: Patient was discharged home with home health services. Follow up with primary care provider in one week. I have been assigned to dictate discharge summary for this account. I was not involved in the patient's management. Cherelle Pritchett NP Jul 30, 2020 11:48
== END 2020-07-28 12:14 | disposition home health service (06) | DRG 640 ==
LOC: EDBD 20:44 → EMR 21:10 → 2E 22:41 → EDBEDREQ 23:32 → 2E 07-25 14:08
PROC: 5A1D70Z Performance of Urinary Filtration, Intermittent, Less than 6 Hours Per Day (ICD-10-PCS; principal; 2020-07-24)
DX: E87.79 Other fluid overload (principal); N18.6 End stage renal disease; G93.41 Metabolic encephalopathy; F33.3 Major depressive disorder, recurrent, severe with psychotic symptoms; I24.9 Acute ischemic heart disease, unspecified; I12.0 Hypertensive chronic kidney disease with stage 5 chronic kidney disease or end stage renal disease; E87.5 Hyperkalemia; F10.10 Alcohol abuse, uncomplicated; F14.10 Cocaine abuse, uncomplicated; D63.8 Anemia in other chronic diseases classified elsewhere; E11.22 Type 2 diabetes mellitus with diabetic chronic kidney disease; Z91.19 Patient's noncompliance with other medical treatment and regimen; I95.9 Hypotension, unspecified; Z79.4 Long term (current) use of insulin; Z91.15 Patient's noncompliance with renal dialysis; Z99.2 Dependence on renal dialysis
CPT/HCPCS: 36415; 70450; 71045; 74018; 80048; 80053; 80076; 82140; 82607; 82962; 82977; 83036; 83605; 83735; 83880; 83921; 84100; 84443; 84484; 84550; 85025; 85610; 85730; 86140; 86592; 86706; 86780; 87081; 93005; 93306; 95819; 96374; 96375; 99285; G0480; U0002